=== PATIENT | male | born 1960 ===

== ENCOUNTER 2016-10-12 22:12 | Emergency (ER) | payer MEDICAID, OTHER ==
[2016-10-12 22:12] VITALS: BMI 19.3
--- NOTE | 2016-10-13 00:30 | C.PDOC ---
History Of Present Illness Pt c/o chronic right leg pain. Of note, pt is accompanied by a woman who insists on knowing the patient's medical information even though she is not related to him. Pt does not consent to give this woman his medical information and yet the woman refuses to leave and is interrupting this patients care and the care of other patients. I politely asked this woman to leave, but she started yelling in the ED and states that she wants to complain about me. Time Seen by Provider: 10/12/16 23:12 Chief Complaint (Nursing): Medical Clearance History Per: Patient Onset/Duration Of Symptoms: Days (chronic) Current Symptoms Are (Timing): Still Present Severity: Moderate Additional History Per: Prior Records Past Medical History Reviewed: Historical Data, Nursing Documentation, Vital Signs Vital Signs: Last Vital Signs Temp 97 F L 10/12/16 22:24 Pulse 84 10/12/16 22:24 Resp 14 10/12/16 22:24 BP 144/81 10/12/16 22:24 Pulse Ox 98 10/13/16 00:34 - Medical History PMH: Atrial Fibrillation, Back Problems, Fractures, HTN, Chronic Pain (chronic b /l leg pain/itching) - [facility] Procedures IMMOBILIZ/WOUND ATTN NEC (06/13/14) INJECT/INFUSE NEC (08/09/14) Family History: States: Unknown Family Hx - Social History Hx Tobacco Use: No (DENIED) Hx Alcohol Use: Yes Hx Substance Use: No - Immunization History Hx Tetanus Toxoid Vaccination: No Hx Influenza Vaccination: No Hx Pneumococcal Vaccination: No Review Of Systems Constitutional: Negative for: Fever Respiratory: Negative for: Hemoptysis Gastrointestinal: Negative for: Vomiting, Abdominal Pain Musculoskeletal: Positive for: Leg Pain (right). Negative for: Neck Pain, Back Pain Skin: Positive for: Rash Neurological: Negative for: Weakness, Numbness, Seizures, Altered Mental Status , Headache Physical Exam - Physical Exam Appears: No Acute Distress, Chronically Ill Skin: Warm, Dry, Jaundice Head: Atraumatic Eye(s): bilateral: PERRL, EOMI Neck: Normal ROM, Supple Cardiovascular: Rhythm Irregular Respiratory: Normal Breath Sounds, No Accessory Muscle Use Gastrointestinal/Abdominal: Soft, No Tenderness, Distention Back: No CVA Tenderness Extremity: Normal ROM, Pedal Edema, Calf Tenderness (right) Pulses: Left Dorsalis Pedis: Normal, Right Dorsalis Pedis: Normal Neurological/Psych: Oriented x3, Normal Motor, Normal Sensation ED Course And Treatment ECG: Interpreted By Me, Viewed By Me ECG Rhythm: Atrial Fibrillation, Nonspecific Changes ECG Interpretation: No Changes From Prior Rate From EC O2 Sat by Pulse Oximetry: 98 Pulse Ox Interpretation: Normal Disposition - Disposition Disposition Time: 01:00 Condition: FAIR - Clinical Impression Clinical Impression: Right leg pain, Alcoholic liver disease, Atrial fibrillation Physician Patient Turnover Patient Signed Over To: Bennett Cueto Handoff Comments: to f/up labs and reassess/dispo pt.
[2016-10-13 00:58] LABS: MEAN CELL VOLUME 84.2 fL (80.0-94.0); MEAN CORPUSCULAR HEMOGLOBIN 28.2 pg (27.0-31.0); MEAN CORPUSCULAR HGB CONC 33.5 g/dL (33.0-37.0); MEAN PLATELET VOLUME 8.6 fL (7.2-11.7); PLATELET COUNT 281 K/uL (130-400); RED CELL DISTRIBUTION WIDTH 26.9 % (11.5-14.5); WHITE BLOOD COUNT 9.6 K/uL (4.8-10.8)
[2016-10-13 00:59] LABS: RBC URINE 5 /hpf (0-3); URINE BILIRUBIN 1+ (NEGATIVE); URINE BLOOD 1+ (NEGATIVE); URINE COLOR Amber (YELLOW); URINE GLUCOSE (UA) NORMAL (Normal); URINE KETONE NEGATIVE (NEGATIVE); URINE LEUKOCYTE ESTERASE NEG Leu/uL (Negative); URINE PROTEIN NEGATIVE (NEGATIVE); WBC URINE 1 /hpf (0-5)
[2016-10-13 01:02] LABS: ALB/GLOB RATIO 0.5 (1.0-2.1); ALCOHOL SERUM 47 mg/dl (0-10); ALKALINE PHOSPHATASE 307 U/L (38-126); ALT/SGPT 23 U/L (21-72); AST/SGOT 73 U/L (17-59); BILIRUBIN,TOTAL 7.9 mg/dL (0.2-1.3); BLOOD UREA NITROGEN 11 mg/dL (9-20); CALCIUM 7.8 mg/dl (8.6-10.4); CARBON DIOXIDE 18 mmol/L (22-30); CHLORIDE 108 mmol/L (98-107); GFR AFRICAN-AMERICAN > 60; GLUCOSE,RANDOM 107 mg/dL (75-110); MAGNESIUM 1.6 mg/dL (1.6-2.3); POTASSIUM 4.4 mmol/L (3.6-5.2); SODIUM 135 mmol/L (132-148); TOTAL PROTEIN 7.7 g/dL (6.3-8.3)
[2016-10-13 01:56] LABS: BASOPHIL 1 % (0-2); EOSINOPHIL 3 % (0-4); NEUTROPHIL 67 % (50-75); TOTAL CELLS COUNTED 100
[2016-10-13 01:58] LABS: GIANT PLATELETS PRESENT; LARGE PLATELETS PRESENT
[2016-10-13 02:35] LABS: PARTIAL THROMBOPLASTIN TIME 37 SECONDS (21-34)
[2016-10-13] MEDS ORDERED: Enoxaparin 40 mg Syringe SC STA (03:16)
[2016-10-13] MEDS ORDERED: Enoxaparin 80 mg Syringe ONE (03:24)
[2016-10-13] MEDS ORDERED: Iodixanol 320 MG/ML 100 ML BOTTLE IV ONE (04:15)
[2016-10-13 07:46] VITALS: RESP 16; TEMP 98.2; O2SAT 100
--- NOTE | 2016-10-13 09:58 | CT ---
PROCEDURE: CT Chest with contrast (Pulmonary Angiogram) HISTORY: Shortness of breath. , leg pain, elevated d dimer COMPARISON: None available. TECHNIQUE: Axial computed tomography images were obtained of the chest in the pulmonary arterial phase of enhancement. Coronal and sagittal reformatted images were created and reviewed. Intravenous contrast dose: 100 cc Visipaque 320 contrast material. Radiation dose: Total exam DLP = 293.38 mGy-cm. This CT exam was performed using one or more of the following dose reduction techniques: Automated exposure control, adjustment of the mA and/or kV according to patient size, and/or use of iterative reconstruction technique. This study is limited by suboptimal bolus injection, motion and some streak and beam hardening artifact. FINDINGS: PULMONARY ARTERIES: No definitive evidence of filling defects seen in the visualized pulmonary trunk, right and left main and proximal segmental branches. Note that distal segmental and subsegmental branches of the pulmonary arteries are poorly seen as delineated above. Pulmonary trunk measures approximately 3.26 cm. Rule out underlying mild pulmonary arterial hypertension. No evidence AORTA: No acute findings. No evidence of aortic dissection for aneurysm. The ascending thoracic aorta measures approximate 3.05 cm and descending thoracic aorta measures approximately 2.3 cm. LUNGS: Mild bibasilar atelectasis and or scarring changes. PLEURAL SPACES: No effusion or pneuomothorax. There appears to be localized pleural thickening the left anterior upper lung along anterolateral convexity HEART: Heart size is mildly enlarged. No significant pericardial effusion. LYMPH NODES: 2 small nonspecific mediastinal and hilar lymph nodes. BONES, CHEST WALL: The osseous structures appear intact. OTHER FINDINGS: Small hiatal hernia. There ascites seen in the upper abdomen. The questionable hepatic cirrhosis. Partially exophytic hyperdense lesion (Measuring approximately 17.2 x 14.3 mm )upper pole left kidney that could represent hyperdense cyst however solid mass must be excluded. Consider followup renal ultrasound. IMPRESSION: Limited study as above. No definitive central pulmonary emboli seen within limitation of study. Rule out underlying pulmonary arterial hypertension. Mild bibasilar atelectasis and or scarring. Suspect localized pleural thickening left upper lobe along the anterolateral convexity. Ascites with questionable hepatic cirrhosis. Small hyperdense lesion upper pole left kidney may represent hyperdense cyst however solid mass not excluded. Recommend followup renal ultrasound.
[2016-10-13 10:45] VITALS: BP 122/70; PULSE 101
--- NOTE | 2016-10-13 14:50 | VASCLAB ---
PROCEDURE: Lower Extremity Venous Duplex Exam. HISTORY: dvt PRIORS: None. TECHNIQUE: Bilateral common femoral, femoral, popliteal and posterior tibial, peroneal and great saphenous veins were evaluated. Flow was assessed with color Doppler, compressibility, assessment of phasic flow and augmentation response. Report prepared by Susan Garcia, CHELY, RVS FINDINGS: RIGHT: 1. Common Femoral Vein: 1.1. Compressibility - Fully compressible: Thrombus - None : Flow - Phasic: Augmentation -Normal: Reflux - None. 2. Femoral Vein: 2.1. Compressibility - Fully compressible: Thrombus - None : Flow - Phasic: Augmentation -Normal: Reflux - None. 3. Popliteal Vein: 3.1. Compressibility - Fully compressible: Thrombus - None : Flow - Phasic: Augmentation -Normal: Reflux - None. 4. Posterior Tibial Vein: 4.1. Compressibility - Fully compressible: Thrombus - None: Flow - Phasic: Augmentation -Normal: Reflux - None. 5. Peroneal Vein: 5.1. Compressibility - Fully compressible: Thrombus - None: Flow - Phasic: Augmentation -Normal: Reflux - None. 6. Great Saphenous Vein: 6.1. Compressibility - Partial: Thrombus - Acute: Flow - Phasic: Augmentation - Normal: Reflux - None. LEFT: 1. Common Femoral Vein: 1.1. Compressibility - Fully compressible: Thrombus - None: Flow - Phasic: Augmentation -Normal: Reflux - None. 2. Femoral Vein: 2.1. Compressibility - Fully compressible: Thrombus - None: Flow - Phasic: Augmentation -Normal: Reflux - None. 3. Popliteal Vein: 3.1. Compressibility - Fully compressible: Thrombus - None : Flow - Phasic: Augmentation -Normal: Reflux - None. 4. Posterior Tibial Vein: 4.1. Compressibility - Fully compressible: Thrombus - None: Flow - Phasic: Augmentation -Normal: Reflux - None. 5. Peroneal Vein: 5.1. Compressibility - Fully compressible: Thrombus - None: Flow - Phasic: Augmentation -Normal: Reflux - None. 6. Great Saphenous Vein: 6.1. Compressibility - Fully compressible: Thrombus - None: Flow - Phasic: Augmentation - Normal: Reflux - None. OTHER FINDINGS: Right: None significant. Left: None significant. IMPRESSION: Right: No evidence of deep or superficial vein thrombosis of the right lower extremity. Normal valve function noted of the right side. There is a partial compression of the greater saphenous vein in the mid to distal thigh. Left: No evidence of deep or superficial vein thrombosis of the left lower extremity. Normal valve function noted of the left side.
--- NOTE | 2016-10-13 15:13 | RAD ---
HISTORY: Edema COMPARISON: CTA chest PE protocol performed 10/13/16 TECHNIQUE: Chest, one view. FINDINGS: Examination limited by habitus. LUNGS: Mild bibasilar atelectasis. Please note that chest x-ray has limited sensitivity for the detection of pulmonary masses. PLEURA: No significant pleural effusion identified. No definite pneumothorax . CARDIOVASCULAR: Cardiomegaly. OSSEOUS STRUCTURES: Degenerative changes of the spine. Deformity of the right mid clavicle may be related to remote fracture VISUALIZED UPPER ABDOMEN: Unremarkable. OTHER FINDINGS: None. IMPRESSION: Mild bibasilar atelectasis. Cardiomegaly. Deformity of the right mid clavicle may be related to remote fracture. Expansile lesion cannot be excluded. Recommend correlation with clinical history and prior outside images if available. Study has been marked for PA review.
== END 2016-10-13 10:44 | disposition home or self-care (01) ==
LOC: C.ER 22:12
DX: M79.604 Pain in right leg (principal); K70.9 Alcoholic liver disease, unspecified; I48.91 Unspecified atrial fibrillation
CPT/HCPCS: 71010; 71275; 80053; 81001; 83735; 83880; 84484; 85025; 85378; 85610; 85730; 93970; 96372; 99285; G0480; J1650; Q9967

== ENCOUNTER 2017-05-17 21:50 | Emergency (ER) | payer SELFPAY ==
[2017-05-17 21:52] VITALS: BMI 23.2
[2017-05-17 22:46] VITALS: BP 122/82; PULSE 113; RESP 16; TEMP 98.5; O2SAT 99
--- NOTE | 2017-05-18 01:14 | C.PDOC ---
History Of Present Illness 56 year old homeless male presents to the ER with a complaint of lower back pain , dry cough, chest congestion, and nasal congestion for the past 3 days. Denies fever, chest pain, or SOB. Time Seen by Provider: 05/17/17 23:10 Chief Complaint (Nursing): Back Pain History Per: Patient History/Exam Limitations: no limitations Onset/Duration Of Symptoms: Days Current Symptoms Are (Timing): Still Present Associated Symptoms: None Recent travel outside of the [place]: No Past Medical History Reviewed: Historical Data, Nursing Documentation, Vital Signs Vital Signs: Last Vital Signs Temp 98.5 F 05/17/17 22:35 Pulse 113 H 05/17/17 22:35 Resp 16 05/17/17 22:35 BP 122/82 05/17/17 22:35 Pulse Ox 99 05/18/17 03:17 - Medical History PMH: Anemia, Atrial Fibrillation, Back Problems, Cardia Arrhythmia, Fractures, Peripheral Edema, Pneumonia, Chronic Pain (chronic b/l leg pain/itching) - [facility] Procedures IMMOBILIZ/WOUND ATTN NEC (06/13/14) INJECT/INFUSE NEC (08/09/14) INSPECTION OF UPPER INTESTINAL TRACT, ENDO (12/24/16) INTRODUCTION OF OTHER THERAPEUTIC SUBSTANCE INTO UP GI, ENDO (12/24/16) TRANSFUSE NONAUT RED BLOOD CELLS IN PERIPH VEIN, PERC (12/24/16) Family History: States: Unknown Family Hx - Social History Hx Tobacco Use: No Hx Alcohol Use: Yes (Last drink was about 5-6 years ago.) Hx Substance Use: No - Immunization History Hx Tetanus Toxoid Vaccination: No Hx Influenza Vaccination: No Hx Pneumococcal Vaccination: No Review Of Systems Constitutional: Negative for: Fever ENT: Positive for: Nose Congestion Cardiovascular: Negative for: Chest Pain Respiratory: Positive for: Cough, Other (Chest congestion). Negative for: Shortness of Breath Musculoskeletal: Positive for: Back Pain (Lower) Neurological: Negative for: Weakness, Numbness Physical Exam - Physical Exam Appears: Non-toxic, No Acute Distress Skin: Normal Color, Warm, Dry Head: Atraumatic, Normacephalic Eye(s): bilateral: Normal Inspection Ear(s): Bilateral: Normal Oral Mucosa: Moist Throat: Normal, No Erythema, No Exudate Neck: Normal, Supple Chest: Symmetrical, No Tenderness Cardiovascular: Rhythm Regular Respiratory: Normal Breath Sounds, No Rales, No Rhonchi, No Wheezing Back: No Vertebral Tenderness, No Paraspinal Tenderness Neurological/Psych: Oriented x3, Normal Speech Gait: Steady ED Course And Treatment O2 Sat by Pulse Oximetry: 99 (Room air) Pulse Ox Interpretation: Normal - Radiology CXR: Interpreted by Me, Viewed By Me CXR Interpretation: Yes: No Acute Disease Progress Note: CXR ordered, results were negative. Patient is ambulatory in the ER in no acute distress. Will discharge home with instructions to take OTC medication as needed and to follow up with clinic for further evaluation. Disposition Counseled Patient/Family Regarding: Diagnosis, Need For Followup - Disposition Disposition: HOME/ ROUTINE Disposition Time: 01:12 Condition: STABLE Additional Instructions: PLEASE FOLLOW UP IN CLINIC TAKE TYLENOL FOR PAIN RETURN TO ER IF WORSE Prescriptions: Acetaminophen [Tylenol 325mg tab] 650 mg PO QID #40 tab guaiFENesin/Dextromethorphan [guaiFENesin-DM] 5 ml PO Q6 #100 ml Instructions: Upper Respiratory Infection (ED) Forms: [employer] (Kazakh) - Clinical Impression Clinical Impression: Upper respiratory infection - PA / INTENSIVE CARE ANAESTHETIST / Resident Statement MD/DO has reviewed & agrees with the documentation as recorded. - Scribe Statement The provider has reviewed the documentation as recorded by the Scribmelony Manzo All medical record entries made by the Thomasibmelony were at my direction and personally dictated by me. I have reviewed the chart and agree that the record accurately reflects my personal performance of the history, physical exam, medical decision making, and the department course for this patient. I have also personally directed, reviewed, and agree with the discharge instructions and disposition.
--- NOTE | 2017-05-18 08:15 | RAD ---
HISTORY: cough, congestion COMPARISON: chest x-ray and CT chest PE study. Both studies 10/13/2016 TECHNIQUE: Chest PA and lateral FINDINGS: LUNGS: No consolidation the overall pulmonary vasculature appears increased possible slight increased conspicuity on current exam. PLEURA: No significant pleural effusion identified. No pneumothorax apparent. CARDIOVASCULAR: Mild cardiomegaly OSSEOUS STRUCTURES: Thoracic spondylosis. Old healed right 8th lateral rib fracture -similar VISUALIZED UPPER ABDOMEN: Normal. OTHER FINDINGS: None. IMPRESSION: No consolidative infiltrate. Mild cardiomegaly. Mild interval perceived increased pulmonary vascular congestion. No pleural effusion
== END 2017-05-18 01:17 | disposition home or self-care (01) ==
LOC: C.ER 21:50
DX: J06.9 Acute upper respiratory infection, unspecified (principal)

== ENCOUNTER 2017-05-20 17:32 | Inpatient (IN) | payer MEDICAID, OTHER ==
[2017-05-20 17:32] VITALS: BMI 23.2
--- NOTE | 2017-05-20 18:52 | C.PDOC ---
History Of Present Illness 56 y/o M c PMHx liver cirrhosis, Afib, alcoholism, homeless p/w fever, body aches, nausea, diarrhea x 3 days. Denies recent travel, dyspnea, chest pain, rash. Time Seen by Provider: 05/20/17 18:33 Chief Complaint (Nursing): GI Problem Past Medical History Vital Signs: Last Vital Signs Temp 97.8 F 05/20/17 19:29 Pulse 106 H 05/20/17 22:26 Resp 19 05/20/17 22:26 BP 97/51 L 05/20/17 22:26 Pulse Ox 97 05/20/17 22:26 - Medical History PMH: Anemia, Atrial Fibrillation, Back Problems, Cardia Arrhythmia, Fractures, Peripheral Edema, Pneumonia, Chronic Pain (chronic b/l leg pain/itching) Denies: Arthritis, CHF, COPD, Diabetes (Pt denies), Hepatitis (Pt denies), HIV (Pt denies), HTN (Pt denies), Hypercholesterolemia, Hypothyroidism, Chronic Kidney Disease, Rheumatoid Arthritis, Sexually Transmitted Disease (Pt denies) Comment Only: Seizures (Pt denies) - [facility] Procedures IMMOBILIZ/WOUND ATTN NEC (06/13/14) INJECT/INFUSE NEC (08/09/14) INSPECTION OF UPPER INTESTINAL TRACT, ENDO (12/24/16) INTRODUCTION OF OTHER THERAPEUTIC SUBSTANCE INTO UP GI, ENDO (12/24/16) TRANSFUSE NONAUT RED BLOOD CELLS IN PERIPH VEIN, PERC (12/24/16) Family History: States: Unknown Family Hx - Social History Hx Tobacco Use: No Hx Alcohol Use: Yes (Last drink was about 5-6 years ago.) Hx Substance Use: No - Immunization History Hx Tetanus Toxoid Vaccination: No Hx Influenza Vaccination: No Hx Pneumococcal Vaccination: No Review Of Systems Except As Marked, All Systems Reviewed And Found Negative. Cardiovascular: Negative for: Chest Pain Respiratory: Negative for: Shortness of Breath Physical Exam - Physical Exam Additional Physical Exam Comments: Constitutional: No acute distress. Head: Atraumatic. Eyes: PERRL. ENT: Moist mucous membranes. Neck: Supple. Cardiovascular: Tachycardic rate. Radial pulses 2+ bilaterally. Chest: No tenderness. Respiratory: Clear to auscultation bilaterally. GI: Soft. Nontender. Distended. Back: No CVA tenderness. Musculoskeletal: Swelling of lower extremities. Neurologic: Alert, no focal deficit. ED Course And Treatment - Laboratory Results Result Diagrams: 05/20/17 19:08 05/20/17 19:08 O2 Sat by Pulse Oximetry: 98 Medical Decision Making Medical Decision Making: Patient with mild lactic acidosis, leukocytosis, stable Hb, positive UTI, hyponatremia. Vital signs improved. ICU consult placed, Dr. Rojas recommends telemetry admission at this time, recommends treating with Tamiflu despite negative Influenza swab given not 100% sensitive. Dr. Davison accepts patient to hospitalist service. manager residential notified. Disposition - Disposition Disposition: HOSPITALIZED Disposition Time: 22:45 Condition: GUARDED Forms: [facility] (Lebanese) - Clinical Impression Clinical Impression: Sepsis, UTI (urinary tract infection), Hyponatremia
[2017-05-20 19:22] LABS: VENOUS BLOOD GAS BASE EXCESS 0.3 mmol/L (0.0-2.0); VENOUS BLOOD GAS PCO2 32 mmHg (40-60); VENOUS BLOOD GAS PO2 46 mm/Hg (30-55); VENOUS BLOOD PH 7.47 (7.32-7.43)
[2017-05-20 19:23] LABS: RBC 2.68 Mil/uL (4.40-5.90)
[2017-05-20 19:24] LABS: MEAN CORPUSCULAR HEMOGLOBIN 29.7 pg (27.0-31.0); MEAN CORPUSCULAR HGB CONC 33.4 g/dL (33.0-37.0); RED CELL DISTRIBUTION WIDTH 21.8 % (11.5-14.5)
[2017-05-20 19:25] LABS: INR 2.1; PROTHROMBIN TIME 24.1 SECONDS (9.7-12.2)
[2017-05-20 19:26] LABS: MEAN CELL VOLUME 88.8 fL (80.0-94.0); WHITE BLOOD COUNT 16.2 K/uL (4.8-10.8)
[2017-05-20 19:28] LABS: ALBUMIN 2.7 g/dL (3.5-5.0); ALT/SGPT 31 U/L (21-72); AST/SGOT 82 U/L (17-59); BLOOD UREA NITROGEN 13 mg/dL (9-20); CALCIUM 7.5 mg/dl (8.6-10.4); GFR AFRICAN-AMERICAN > 60; GFR NON-AFRICAN AMERICAN > 60; LIPASE 71 U/L (23-300)
[2017-05-20 19:34] LABS: ALB/GLOB RATIO 0.5 (1.0-2.1)
[2017-05-20] MEDS ORDERED: Cefepime IV 1 gm in Dextrose 1 GM/50 ML BAG IVPB STA (19:45)
[2017-05-20] MEDS ORDERED: Vancomycin 1 gm/NS 200 ml 1 GM/200 ML BAG IVPB STA (19:45)
[2017-05-20] MEDS ORDERED: Sodium Chloride 0.9% 1,000 ML IV STA (19:46)
[2017-05-20 19:56] LABS: LYMPH # 1.6 K/uL (1.0-4.3); MONO # 0.7 K/uL (0.0-0.8)
[2017-05-20 22:21] LABS: SQUAMOUS EPITHIAL 1 /hpf (0-5); URINE BACTERIA OCC (<OCC); URINE BILIRUBIN 1+ (NEGATIVE); URINE BLOOD 1+ (NEGATIVE); URINE CLARITY Clear (Clear); URINE COLOR Amber (YELLOW); URINE GLUCOSE (UA) NORMAL (Normal); URINE LEUKOCYTE ESTERASE 1+ Leu/uL (Negative); URINE NITRATE NEGATIVE (NEGATIVE); URINE PROTEIN 1+ mg/dL (NEGATIVE)
--- NOTE | 2017-05-20 23:58 | CP.PCM.HP ---
Addendum entered and electronically signed by Flor Phillip DO 05/21/17 09:03 : Physical Exam: - Constitutional Appears: No Acute Distress - Head Exam Head Exam: ATRAUMATIC, NORMOCEPHALIC - Eye Exam Eye Exam: EOMI - ENT Exam ENT Exam: Mucous Membranes Dry - Respiratory Exam Respiratory Exam: Clear to Ausculation Bilateral, NORMAL BREATHING PATTERN. absent: Rales, Rhonchi, Wheezes - Cardiovascular Exam Cardiovascular Exam: Tachycardia, Irregular Rhythm, +S1, +S2 - GI/Abdominal Exam GI & Abdominal Exam: Distended, Soft, Hernia (umbilical), Normal Bowel Sounds. 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 HPI: 56 yo Male with PMHx of Afib, hepatic cirrhosis, varices, anemia, alcoholism stopped 10 yrs as per patient, chronic leg edema, venous insufficiency and dermatitis changes in right leg presented to the ED with fever , body ache, runny nose, and productive cough x 3 days. Patient is homeless, reports that he was feeling ill for the past 3-4 days. Admitted to fever, chills , productive cough with yellow sputum, chest discomfort upon coughing, diarrhea and right leg pain. Denied abdominal pain, n/v/c, or urinary symptoms. PMHx: Afib, hepatic cirrhosis, varices, anemia,alcoholism stopped 10 yrs as per patient, chronic leg edema, venous insufficiency & dermatitis changes in right leg PSHx: Incarcerated hernia repair Meds: As per JUL, reviewed and confirmed All: NKDA SHx: denies tobacco or illicit drug use, endorses prior 1 pint vodka daily for four years, quit 10 years - positive ETOH levels FHx: denies stomach cancer, colon cancer, liver cancer Present on Admission - Present on Admission Any Indicators Present on Admission: No Past Patient History - Infectious Disease Hx of Infectious Diseases: None - Past Medical History & Family History Past Medical History?: Yes - Past Social History Smoking Status: Never Smoked - CARDIAC Hx Atrial Fibrillation: Yes Hx Cardia Arrhythmia: Yes Hx Congestive Heart Failure: No Hx Hypercholesterolemia: No Hx Hypertension: No (Pt denies) Hx Peripheral Edema: Yes - PULMONARY Hx Chronic Obstructive Pulmonary Disease (COPD): No Hx Pneumonia: Yes - NEUROLOGICAL Hx Seizures: (Pt denies) - HEENT Hx HEENT Problems: No - RENAL Hx Chronic Kidney Disease: No - ENDOCRINE/METABOLIC Hx Hypothyroidism: No - HEMATOLOGICAL/ONCOLOGICAL Hx Anemia: Yes Hx Human Immunodeficiency Virus (HIV): No (Pt denies) - INTEGUMENTARY Hx Cellulitis: Yes - MUSCULOSKELETAL/RHEUMATOLOGICAL Hx Arthritis: No Hx Fractures: Yes Hx Rheumatoid Arthritis: No - GASTROINTESTINAL Hx Gastrointestinal Disorders: Yes Other/Comment: umbilical hernia, Liver cirrhosis - GENITOURINARY/GYNECOLOGICAL Hx Sexually Transmitted Disorders: No (Pt denies) - PSYCHIATRIC Hx Substance Use: No - SURGICAL HISTORY Hx Surgeries: Yes Other/Comment: Surgery Rt arm - "artery" - ANESTHESIA Hx Anesthesia: Yes Hx Anesthesia Reactions: No Hx Malignant Hyperthermia: No Meds Allergies/Adverse Reactions: Allergies Allergy/AdvReac Type Severity Reaction Status Date / Time pollen extracts Allergy ITCHING Verified 05/20/17 18:05 Results - Vital Signs Recent Vital Signs: Last Vital Signs Temp 97.8 F 05/20/17 19:29 Pulse 106 H 05/20/17 22:26 Resp 19 05/20/17 22:26 BP 97/51 L 05/20/17 22:26 Pulse Ox 98 05/20/17 23:34 - Labs Result Diagrams: 05/20/17 19:08 05/20/17 19:08 Labs: Laboratory Results - last 24 hr 05/20/17 05/20/17 05/20/17 19:08 19:08 19:08 WBC 16.2 H D RBC 2.68 L Hgb 8.0 L Hct 23.8 L MCV 88.8 D MCH 29.7 MCHC 33.4 RDW 21.8 H Plt Count 193 MPV 8.0 Neut % (Auto) 86.0 H Lymph % (Auto) 10.0 L [place] % (Auto) 4.0 Eos % (Auto) 0.0 Baso % (Auto) 0.0 Neut # 14.0 H Lymph # 1.6 [place] # 0.7 Eos # 0.0 Baso # 0.0 PT 24.1 H INR 2.1 APTT 39 H pO2 VBG pH VBG pCO2 VBG HCO3 VBG Total CO2 VBG O2 Sat (Calc) VBG Base Excess VBG Potassium Glucose Lactate Sodium 127 L Potassium 3.8 Chloride 99 Carbon Dioxide 23 Anion Gap 9 L BUN 13 Creatinine 0.9 Est GFR ( Amer) > 60 Est GFR (Non-Af Amer) > 60 Random Glucose 108 Calcium 7.5 L Total Bilirubin 3.9 H AST 82 H ALT 31 Alkaline Phosphatase 211 H Total Protein 7.9 Albumin 2.7 L Globulin 5.3 H Albumin/Globulin Ratio 0.5 L Lipase 71 Venous Blood Potassium Urine Color Urine Clarity Urine pH Ur Specific [place] Urine Protein Urine Glucose (UA) Urine Ketones Urine Blood Urine Nitrate Urine Bilirubin Urine Urobilinogen Ur Leukocyte Esterase Urine WBC (Auto) Urine RBC (Auto) Ur Squamous Epith Cells Urine Bacteria Alcohol, Quantitative < 10 Influenza Typ A,B (EIA) 05/20/17 05/20/17 05/20/17 19:19 22:09 22:16 WBC RBC Hgb Hct MCV MCH MCHC RDW Plt Count MPV Neut % (Auto) Lymph % (Auto) [place] % (Auto) Eos % (Auto) Baso % (Auto) Neut # Lymph # [place] # Eos # Baso # PT INR APTT pO2 46 VBG pH 7.47 H VBG pCO2 32 L VBG HCO3 24.8 VBG Total CO2 24.3 VBG O2 Sat (Calc) 88.5 H VBG Base Excess 0.3 VBG Potassium 3.6 Glucose 107 Lactate 2.5 H Sodium 133.0 Potassium Chloride 106.0 Carbon Dioxide Anion Gap BUN Creatinine Est GFR ( Amer) Est GFR (Non-Af Amer) Random Glucose Calcium Total Bilirubin AST ALT Alkaline Phosphatase Total Protein Albumin Globulin Albumin/Globulin Ratio Lipase Venous Blood Potassium 3.6 Urine Color [place] Urine Clarity Clear Urine pH 5.0 Ur Specific [place] 1.028 Urine Protein 1+ H Urine Glucose (UA) Normal Urine Ketones Trace Urine Blood 1+ H Urine Nitrate Negative Urine Bilirubin 1+ H Urine Urobilinogen 4.0 Ur Leukocyte Esterase 1+ H Urine WBC (Auto) 9 H Urine RBC (Auto) 7 H Ur Squamous Epith Cells 1 Urine Bacteria Occ H Alcohol, Quantitative Influenza Typ A,B (EIA) Negative for flu a/b Assessment & Plan - Assessment and Plan (Free Text) Assessment: 56 yo Male with PMHx of Afib, hepatic cirrhosis, varices, anemia, alcoholism stopped 10 yrs as per patient, chronic leg edema, venous insufficiency and dermatitis changes in right leg presented to the ED with fever , body ache, runny nose, and productive cough x 3 days. Patient found to be septic secondary to UTI and Questionable right lower extremity cellulitis. Plan: Sepsis 2/2 UTI Questionable RLE Cellulitis On admission: Febrile, tachycardiac, leukocytosis with left shift, lactate 2.5 -> 1.3 Source 2/2 UTI and questionable RLE Cellulitis Meds: NS @ 100cc/hr Zosyn Q8, Vanco daily, f/u vanco trough 05/23/17 (before 4th dose) RLE Cellulitis? Right LE weeping puncture wound F/U wound culture Wells Score of 3 F/U venous doppler to rule out DVT Chronic Venous Stasis Hyponatremia 127 on admission, low compared to baseline F/U urine Osm, Urine Na, and serum Osm Diarrhea F/U stool studies Anemia Baseline H/H: 01/25, on admission: 12/23.8 Continue to monitor Hx of Atrial Fibrillation EKG: Afib with RVR @ 125 BPM Not on any anticoagulation Alcohol Decompensated Cirrhosis MELD 20 on admission Hepatitis panel negative 11/10/16 AFP 2.3 11/10/16 F/U Ammonia Elevated T. Bili Continue to monitor Hx Alcohol Abuse Alcohol Serum <10 Prophylactic Measure GI PPX: Protonix 40mg IVP DVT PPX: SCD c/i, Heparin Q12 Florastor 250mg PO BID Flor Muñoz DO, PGY-1 <Jabier Davison - Last Filed: 05/21/17 19:04> Results - Vital Signs Recent Vital Signs: Last Vital Signs Temp 99.9 F H 05/21/17 16:00 Pulse 98 H 05/21/17 16:00 Resp 20 05/21/17 16:00 BP 114/62 05/21/17 16:00 Pulse Ox 96 05/21/17 16:00 - Labs Result Diagrams: 05/21/17 10:15 05/21/17 08:48 Labs: Laboratory Results - last 24 hr 0105/20/17 05/20/17 19:08 19:08 19:08 WBC 16.2 H D RBC 2.68 L Hgb 8.0 L Hct 23.8 L MCV 88.8 D MCH 29.7 MCHC 33.4 RDW 21.8 H Plt Count 193 MPV 8.0 Neut % (Auto) 86.0 H Lymph % (Auto) 10.0 L [place] % (Auto) 4.0 Eos % (Auto) 0.0 Baso % (Auto) 0.0 Neut # 14.0 H Lymph # 1.6 [place] # 0.7 Eos # 0.0 Baso # 0.0 Neutrophils % (Manual) Band Neutrophils % Lymphocytes % (Manual) Monocytes % (Manual) Basophils % (Manual) Platelet Estimate Poikilocytosis (manual Anisocytosis (manual) Target Cells PT 24.1 H INR 2.1 APTT 39 H pO2 VBG pH VBG pCO2 VBG HCO3 VBG Total CO2 VBG O2 Sat (Calc) VBG Base Excess VBG Potassium Glucose Lactate Sodium 127 L Potassium 3.8 Chloride 99 Carbon Dioxide 23 Anion Gap 9 L BUN 13 Creatinine 0.9 Est GFR ( Amer) > 60 Est GFR (Non-Af Amer) > 60 Random Glucose 108 Hemoglobin A1c Serum Osmolality Lactic Acid Calcium 7.5 L Phosphorus Magnesium Total Bilirubin 3.9 H AST 82 H ALT 31 Alkaline Phosphatase 211 H Ammonia Total Protein 7.9 Albumin 2.7 L Globulin 5.3 H Albumin/Globulin Ratio 0.5 L Lipase 71 Procalcitonin Venous Blood Potassium Urine Color Urine Clarity Urine pH Ur Specific [place] Urine Protein Urine Glucose (UA) Urine Ketones Urine Blood Urine Nitrate Urine Bilirubin Urine Urobilinogen Ur Leukocyte Esterase Urine WBC (Auto) Urine RBC (Auto) Ur Squamous Epith Cells Urine Bacteria Urine Osmolality Ur Random Sodium Urine Opiates Screen Urine Methadone Screen Ur Barbiturates Screen Ur Phencyclidine Scrn Ur Amphetamines Screen U Benzodiazepines Scrn U Oth Cocaine Metabols U Cannabinoids Screen Alcohol, Quantitative < 10 Influenza Typ A,B (EIA) Ur L.pneumophila Ag Grp A Beta Strep Ag Blood Type Antibody Screen 05/20/17 05/20/17 05/20/17 19:19 22:09 22:16 WBC RBC Hgb Hct MCV MCH MCHC RDW Plt Count MPV Neut % (Auto) Lymph % (Auto) [place] % (Auto) Eos % (Auto) Baso % (Auto) Neut # Lymph # [place] # Eos # Baso # Neutrophils % (Manual) Band Neutrophils % Lymphocytes % (Manual) Monocytes % (Manual) Basophils % (Manual) Platelet Estimate Poikilocytosis (manual Anisocytosis (manual) Target Cells PT INR APTT pO2 46 VBG pH 7.47 H VBG pCO2 32 L VBG HCO3 24.8 VBG Total CO2 24.3 VBG O2 Sat (Calc) 88.5 H VBG Base Excess 0.3 VBG Potassium 3.6 Glucose 107 Lactate 2.5 H Sodium 133.0 Potassium Chloride 106.0 Carbon Dioxide Anion Gap BUN Creatinine Est GFR ( Amer) Est GFR (Non-Af Amer) Random Glucose Hemoglobin A1c Serum Osmolality Lactic Acid Calcium Phosphorus Magnesium Total Bilirubin AST ALT Alkaline Phosphatase Ammonia Total Protein Albumin Globulin Albumin/Globulin Ratio Lipase Procalcitonin Venous Blood Potassium 3.6 Urine Color [place] Urine Clarity Clear Urine pH 5.0 Ur Specific [place] 1.028 Urine Protein 1+ H Urine Glucose (UA) Normal Urine Ketones Trace Urine Blood 1+ H Urine Nitrate Negative Urine Bilirubin 1+ H Urine Urobilinogen 4.0 Ur Leukocyte Esterase 1+ H Urine WBC (Auto) 9 H Urine RBC (Auto) 7 H Ur Squamous Epith Cells 1 Urine Bacteria Occ H Urine Osmolality Ur Random Sodium Urine Opiates Screen Urine Methadone Screen Ur Barbiturates Screen Ur Phencyclidine Scrn Ur Amphetamines Screen U Benzodiazepines Scrn U Oth Cocaine Metabols U Cannabinoids Screen Alcohol, Quantitative Influenza Typ A,B (EIA) Negative for flu a/b Ur L.pneumophila Ag Grp A Beta Strep Ag Blood Type Antibody Screen 05/21/17 05/21/17 05/21/17 00:43 01:10 08:48 WBC RBC Hgb Hct MCV MCH MCHC RDW Plt Count MPV Neut % (Auto) Lymph % (Auto) [place] % (Auto) Eos % (Auto) Baso % (Auto) Neut # Lymph # [place] # Eos # Baso # Neutrophils % (Manual) Band Neutrophils % Lymphocytes % (Manual) Monocytes % (Manual) Basophils % (Manual) Platelet Estimate Poikilocytosis (manual Anisocytosis (manual) Target Cells PT INR APTT pO2 VBG pH VBG pCO2 VBG HCO3 VBG Total CO2 VBG O2 Sat (Calc) VBG Base Excess VBG Potassium Glucose Lactate Sodium 128 L Potassium 4.0 Chloride 104 Carbon Dioxide 21 L Anion Gap 7 L BUN 14 Creatinine 0.9 Est GFR ( Amer) > 60 Est GFR (Non-Af Amer) > 60 Random Glucose 92 Hemoglobin A1c Serum Osmolality Lactic Acid 1.3 Calcium 7.1 L Phosphorus 2.5 Magnesium 1.3 L Total Bilirubin 2.6 H AST 85 H ALT 33 Alkaline Phosphatase 172 H Ammonia Total Protein 6.9 Albumin 2.3 L Globulin 4.6 H Albumin/Globulin Ratio 0.5 L Lipase Procalcitonin Venous Blood Potassium Urine Color Urine Clarity Urine pH Ur Specific [place] Urine Protein Urine Glucose (UA) Urine Ketones Urine Blood Urine Nitrate Urine Bilirubin Urine Urobilinogen Ur Leukocyte Esterase Urine WBC (Auto) Urine RBC (Auto) Ur Squamous Epith Cells Urine Bacteria Urine Osmolality Ur Random Sodium Urine Opiates Screen Urine Methadone Screen Ur Barbiturates Screen Ur Phencyclidine Scrn Ur Amphetamines Screen U Benzodiazepines Scrn U Oth Cocaine Metabols U Cannabinoids Screen Alcohol, Quantitative Influenza Typ A,B (EIA) Ur L.pneumophila Ag Grp A Beta Strep Ag Blood Type O POSITIVE Antibody Screen Negative 05/21/17 05/21/17 05/21/17 10:15 11:09 11:09 WBC 13.1 H RBC 2.62 L Hgb 8.0 L Hct 23.3 L MCV 89.0 MCH 30.5 MCHC 34.2 RDW 21.2 H Plt Count 167 MPV 9.2 Neut % (Auto) 83.0 H Lymph % (Auto) 6.0 L [place] % (Auto) 10.0 Eos % (Auto) 1.0 Baso % (Auto) 0.0 Neut # 10.9 H Lymph # 0.8 L [place] # 1.3 H Eos # 0.1 Baso # 0.0 Neutrophils % (Manual) 79 H Band Neutrophils % 2 Lymphocytes % (Manual) 8 L Monocytes % (Manual) 9 Basophils % (Manual) 2 Platelet Estimate Normal Poikilocytosis (manual Slight Anisocytosis (manual) Moderate Target Cells Moderate PT INR APTT pO2 VBG pH VBG pCO2 VBG HCO3 VBG Total CO2 VBG O2 Sat (Calc) VBG Base Excess VBG Potassium Glucose Lactate Sodium Potassium Chloride Carbon Dioxide Anion Gap BUN Creatinine Est GFR ( Amer) Est GFR (Non-Af Amer) Random Glucose Hemoglobin A1c Serum Osmolality 281 Lactic Acid Calcium Phosphorus Magnesium Total Bilirubin AST ALT Alkaline Phosphatase Ammonia 34 H Total Protein Albumin Globulin Albumin/Globulin Ratio Lipase Procalcitonin Venous Blood Potassium Urine Color Urine Clarity Urine pH Ur Specific [place] Urine Protein Urine Glucose (UA) Urine Ketones Urine Blood Urine Nitrate Urine Bilirubin Urine Urobilinogen Ur Leukocyte Esterase Urine WBC (Auto) Urine RBC (Auto) Ur Squamous Epith Cells Urine Bacteria Urine Osmolality Ur Random Sodium Urine Opiates Screen Urine Methadone Screen Ur Barbiturates Screen Ur Phencyclidine Scrn Ur Amphetamines Screen U Benzodiazepines Scrn U Oth Cocaine Metabols U Cannabinoids Screen Alcohol, Quantitative Influenza Typ A,B (EIA) Ur L.pneumophila Ag Grp A Beta Strep Ag Blood Type Antibody Screen 05/21/17 05/21/17 05/21/17 12:31 13:17 13:17 WBC RBC Hgb Hct MCV MCH MCHC RDW Plt Count MPV Neut % (Auto) Lymph % (Auto) [place] % (Auto) Eos % (Auto) Baso % (Auto) Neut # Lymph # [place] # Eos # Baso # Neutrophils % (Manual) Band Neutrophils % Lymphocytes % (Manual) Monocytes % (Manual) Basophils % (Manual) Platelet Estimate Poikilocytosis (manual Anisocytosis (manual) Target Cells PT INR APTT pO2 VBG pH VBG pCO2 VBG HCO3 VBG Total CO2 VBG O2 Sat (Calc) VBG Base Excess VBG Potassium Glucose Lactate Sodium Potassium Chloride Carbon Dioxide Anion Gap BUN Creatinine Est GFR ( Amer) Est GFR (Non-Af Amer) Random Glucose Hemoglobin A1c Serum Osmolality Lactic Acid Calcium Phosphorus Magnesium Total Bilirubin AST ALT Alkaline Phosphatase Ammonia Total Protein Albumin Globulin Albumin/Globulin Ratio Lipase Procalcitonin 3.93 H Venous Blood Potassium Urine Color Urine Clarity Urine pH Ur Specific [place] Urine Protein Urine Glucose (UA) Urine Ketones Urine Blood Urine Nitrate Urine Bilirubin Urine Urobilinogen Ur Leukocyte Esterase Urine WBC (Auto) Urine RBC (Auto) Ur Squamous Epith Cells Urine Bacteria Urine Osmolality 722 Ur Random Sodium 7 Urine Opiates Screen Urine Methadone Screen Ur Barbiturates Screen Ur Phencyclidine Scrn Ur Amphetamines Screen U Benzodiazepines Scrn U Oth Cocaine Metabols U Cannabinoids Screen Alcohol, Quantitative Influenza Typ A,B (EIA) Ur L.pneumophila Ag Negative Grp A Beta Strep Ag Negative Blood Type Antibody Screen 05/21/17 05/21/17 17:27 17:41 WBC RBC Hgb Hct MCV MCH MCHC RDW Plt Count MPV Neut % (Auto) Lymph % (Auto) [place] % (Auto) Eos % (Auto) Baso % (Auto) Neut # Lymph # [place] # Eos # Baso # Neutrophils % (Manual) Band Neutrophils % Lymphocytes % (Manual) Monocytes % (Manual) Basophils % (Manual) Platelet Estimate Poikilocytosis (manual Anisocytosis (manual) Target Cells PT INR APTT pO2 VBG pH VBG pCO2 VBG HCO3 VBG Total CO2 VBG O2 Sat (Calc) VBG Base Excess VBG Potassium Glucose Lactate Sodium Potassium Chloride Carbon Dioxide Anion Gap BUN Creatinine Est GFR ( Amer) Est GFR (Non-Af Amer) Random Glucose Hemoglobin A1c 6.0 Serum Osmolality Lactic Acid Calcium Phosphorus Magnesium Total Bilirubin AST ALT Alkaline Phosphatase Ammonia Total Protein Albumin Globulin Albumin/Globulin Ratio Lipase Procalcitonin Venous Blood Potassium Urine Color Urine Clarity Urine pH Ur Specific [place] Urine Protein Urine Glucose (UA) Urine Ketones Urine Blood Urine Nitrate Urine Bilirubin Urine Urobilinogen Ur Leukocyte Esterase Urine WBC (Auto) Urine RBC (Auto) Ur Squamous Epith Cells Urine Bacteria Urine Osmolality Ur Random Sodium Urine Opiates Screen Negative Urine Methadone Screen Negative Ur Barbiturates Screen Negative Ur Phencyclidine Scrn Negative Ur Amphetamines Screen Negative U Benzodiazepines Scrn Negative U Oth Cocaine Metabols Negative U Cannabinoids Screen Negative Alcohol, Quantitative Influenza Typ A,B (EIA) Ur L.pneumophila Ag Grp A Beta Strep Ag Blood Type Antibody Screen Assessment & Plan - Date & Time Date: 05/21/17 (I have seen and examined the patient. I agree with the findings and plan of care as documented by Dr. Phillip. Patient with cellulitis. Vanco and Zosyn for now. Check blood and wound cultures. Continue to monitor BMP for hyponatremia. Adjust fluids as necessary. Also with history of atrial fib. Only on aspirin. History of anemia. Confirm patient is not bleeding and anticoagulate if no contraindications. Rate control for now. Monitor for acute changes.) Time: 19:01 Attending/Attestation - Attestation I have personally seen and examined this patient.: Yes I have fully participated in the care of the patient.: Yes I have reviewed all pertinent clinical information: Yes
--- NOTE | 2017-05-20 23:59 | PCM.SEPTIC ---
Sepsis Progress Note - Reassessment Type Date of Evaluation: 05/20/17 Time of Evaluation: 23:59 Reassessment Type: Non-invasive reassessment - Non Invasive Reassessment Were the most recent vital sign reviewed: Yes Vital Sign (Latest): Temp Pulse Resp BP Pulse Ox 97.8 F 106 H 19 97/51 L 98 05/20/17 19:29 05/20/17 22:26 05/20/17 22:26 05/20/17 22:26 05/20/17 23:34 Cardiovascular: Yes: Tachycardia Respiratory: Yes: Normal Breath Sounds. No: Accessory Muscle Use, Wheezing Capillary Refill: Normal (Less than 2 sec) Pulses: Normal Radial, Normal Dorsalis Pedis, Normal Posterior Tibialis Skin: Warm, Dry - Invasive Reassessment (complete 2 of 4) Was a Central Venous Pressure Measurement obtained within 6 Hours after the presentation of septic shock: No Was a central venous oxygen measurement obtained within 6 hours after the presentation of septic shock: No Was a bedside cardiovascular ultrasound performed within 6 hours after the presentation of septic shock: No Was a passive leg raise performed or was a fluid challenge performed within 6 hrs of the initial fluid bolus: Yes Fluid Challenge performed: Yes
[2017-05-21] MEDS ORDERED: Sodium Chloride 0.9% 1,000 ML IV SCH ×2 (00:15)
--- NOTE | 2017-05-21 01:19 | CP.PCM.CON ---
History of Present Illness - History of Present Illness History of Present Illness: 56 M with h/o afib, hepatic cirrhosis, h/o varices, anemia, h/o alcoholism stopped 10 yrs as per patient, chronic leg edema, venous insufficiency and dermatitis changes in left leg, umbilical hernia, non compliance with meds, presented with c/o fever x3 days, body aches, runny nose. ER w/u unremarkable for source, influenza negative, sodium 127. ICU eval requested for fever with multiple comorbidities. Patient is non toxic alert and oriented. Denies any pain. Mentions leg changes including left leg are chronic. Denies taking any meds other then nyquil once. PMH as above Meds none Allergies NKDA Social history live alone, denies smoking, quit drinking 10 yrs back, Allergies NKDA Family history not contributory. Review of Systems - Review of Systems All systems: reviewed and no additional remarkable complaints except (HPI) Past Patient History - Infectious Disease Hx of Infectious Diseases: None - Past Medical History & Family History Past Medical History?: Yes - Past Social History Smoking Status: Never Smoked Alcohol: None Home Situation {Lives}: Alone Domestic Violence: Negative - CARDIAC Hx Atrial Fibrillation: Yes Hx Cardia Arrhythmia: Yes Hx Congestive Heart Failure: No Hx Hypercholesterolemia: No Hx Hypertension: No (Pt denies) Hx Peripheral Edema: Yes - PULMONARY Hx Chronic Obstructive Pulmonary Disease (COPD): No Hx Pneumonia: Yes - NEUROLOGICAL Hx Seizures: (Pt denies) - HEENT Hx HEENT Problems: No - RENAL Hx Chronic Kidney Disease: No - ENDOCRINE/METABOLIC Hx Hypothyroidism: No - HEMATOLOGICAL/ONCOLOGICAL Hx Anemia: Yes Hx Human Immunodeficiency Virus (HIV): No (Pt denies) - INTEGUMENTARY Hx Cellulitis: Yes - MUSCULOSKELETAL/RHEUMATOLOGICAL Hx Arthritis: No Hx Fractures: Yes Hx Rheumatoid Arthritis: No - GASTROINTESTINAL Hx Gastrointestinal Disorders: Yes Other/Comment: umbilical hernia, Liver cirrhosis - GENITOURINARY/GYNECOLOGICAL Hx Sexually Transmitted Disorders: No (Pt denies) - PSYCHIATRIC Hx Substance Use: No - SURGICAL HISTORY Hx Surgeries: Yes Other/Comment: Surgery Rt arm - "artery" - ANESTHESIA Hx Anesthesia: Yes Hx Anesthesia Reactions: No Hx Malignant Hyperthermia: No Meds Allergies/Adverse Reactions: Allergies Allergy/AdvReac Type Severity Reaction Status Date / Time pollen extracts Allergy ITCHING Verified 05/20/17 18:05 - Medications Medications: Current Medications Aspirin (Ecotrin) 81 mg PO DAILY [facility] Enoxaparin Sodium (Lovenox) 40 mg SC DAILY [facility] Vancomycin/Sodium Chloride (Vancomycin 1 Gm/Ns 200 Ml) 1 gm in 200 mls @ 133.333 mls/hr IVPB Q24H [facility] Stop: 05/27/17 21:01 Sodium Chloride (Sodium Chloride 0.9%) 1,000 mls @ 150 mls/hr IV .Q6H40M [facility] Last Admin: 05/21/17 00:34 Dose: 150 mls/hr Lorazepam (Ativan) 1 mg IVP Q6H PRN PRN Reason: Symptoms of alcohol withdrawl Ondansetron HCl (Zofran Inj) 4 mg IVP Q6 PRN PRN Reason: Nausea/Vomiting Physical Exam - Additional Findings Additional findings: * HEENT BUNNY * Neck supple * Chest Clear * CVS irregular, no gallop, or rub * PA distended, reducible umbilical hernia, horse shoe dullness * Ext 3+ edema b/l left leg discoloration, purplish, small ulcer with clean base in left leg * [employer] awake, was sleeping easily arousable, not in distress. * Skin turgor normal. Results - Vital Signs Recent Vital Signs: Last Vital Signs Temp 99.3 F 05/21/17 00:45 Pulse 104 H 05/21/17 00:20 Resp 16 05/21/17 00:20 BP 97/55 L 05/21/17 00:20 Pulse Ox 98 05/21/17 00:20 - Labs Result Diagrams: 05/20/17 19:08 05/20/17 19:08 Labs: Laboratory Results - last 24 hr 05/20/17 05/20/17 05/20/17 19:08 19:08 19:08 WBC 16.2 H D RBC 2.68 L Hgb 8.0 L Hct 23.8 L MCV 88.8 D MCH 29.7 MCHC 33.4 RDW 21.8 H Plt Count 193 MPV 8.0 Neut % (Auto) 86.0 H Lymph % (Auto) 10.0 L Love % (Auto) 4.0 Eos % (Auto) 0.0 Baso % (Auto) 0.0 Neut # 14.0 H Lymph # 1.6 Love # 0.7 Eos # 0.0 Baso # 0.0 PT 24.1 H INR 2.1 APTT 39 H pO2 VBG pH VBG pCO2 VBG HCO3 VBG Total CO2 VBG O2 Sat (Calc) VBG Base Excess VBG Potassium Glucose Lactate Sodium 127 L Potassium 3.8 Chloride 99 Carbon Dioxide 23 Anion Gap 9 L BUN 13 Creatinine 0.9 Est GFR ( Amer) > 60 Est GFR (Non-Af Amer) > 60 Random Glucose 108 Calcium 7.5 L Total Bilirubin 3.9 H AST 82 H ALT 31 Alkaline Phosphatase 211 H Total Protein 7.9 Albumin 2.7 L Globulin 5.3 H Albumin/Globulin Ratio 0.5 L Lipase 71 Venous Blood Potassium Urine Color Urine Clarity Urine pH Ur Specific [place] Urine Protein Urine Glucose (UA) Urine Ketones Urine Blood Urine Nitrate Urine Bilirubin Urine Urobilinogen Ur Leukocyte Esterase Urine WBC (Auto) Urine RBC (Auto) Ur Squamous Epith Cells Urine Bacteria Alcohol, Quantitative < 10 Influenza Typ A,B (EIA) 05/20/17 05/20/17 05/20/17 19:19 22:09 22:16 WBC RBC Hgb Hct MCV MCH MCHC RDW Plt Count MPV Neut % (Auto) Lymph % (Auto) Love % (Auto) Eos % (Auto) Baso % (Auto) Neut # Lymph # Love # Eos # Baso # PT INR APTT pO2 46 VBG pH 7.47 H VBG pCO2 32 L VBG HCO3 24.8 VBG Total CO2 24.3 VBG O2 Sat (Calc) 88.5 H VBG Base Excess 0.3 VBG Potassium 3.6 Glucose 107 Lactate 2.5 H Sodium 133.0 Potassium Chloride 106.0 Carbon Dioxide Anion Gap BUN Creatinine Est GFR ( Amer) Est GFR (Non-Af Amer) Random Glucose Calcium Total Bilirubin AST ALT Alkaline Phosphatase Total Protein Albumin Globulin Albumin/Globulin Ratio Lipase Venous Blood Potassium 3.6 Urine Color Sarai Urine Clarity Clear Urine pH 5.0 Ur Specific [place] 1.028 Urine Protein 1+ H Urine Glucose (UA) Normal Urine Ketones Trace Urine Blood 1+ H Urine Nitrate Negative Urine Bilirubin 1+ H Urine Urobilinogen 4.0 Ur Leukocyte Esterase 1+ H Urine WBC (Auto) 9 H Urine RBC (Auto) 7 H Ur Squamous Epith Cells 1 Urine Bacteria Occ H Alcohol, Quantitative Influenza Typ A,B (EIA) Negative for flu a/b Assessment & Plan - Assessment and Plan (Free Text) Assessment: * Febrile illness, DD of sero negative influenza, ? cellulitis of leg, bacterimia, clinically not sbe * Hyponatremia with edema, hypervolemia likely from cirrhosis portal htn * Afib rate controlled * Borderline lactic acidosis from poor hepatic meatoblism * Plan: * Gentle ivf * Recommend albumin 25g, midodrine 5mg tid as patient is edematous and more fluid may worsen * Recommend broad spectrum abx untils cultures negative * Recommend tamiflu despite neg influenza * Currently hold on lasix. * Since patient is not toxic tolerating current treatment, could be observed in tele.
[2017-05-21] MEDS: Sodium Chloride 0.9% 1,000 ML IV SCH ×2 (05:00→22:58)
[2017-05-21] MEDS: Piperacill/Tazo 3.375gm in Dex 3.375 GM/50 ML BAG IVPB SCH ×3 (06:07→18:15)
--- NOTE | 2017-05-21 07:55 | CP.PCM.PN ---
<Bobby Hernández - Last Filed: 05/21/17 22:59> Subjective - Date & Time of Evaluation Date of Evaluation: 05/21/17 Time of Evaluation: 09:30 - Subjective Subjective: Medicine progress note for Dr. Doran Patient seen and examined. Patient complaining of chills, headache, and diffuse body aches. Denies fever, chest pain, dyspnea, abdominal pain, dysuria. Objective - Vital Signs/Intake and Output Vital Signs (last 24 hours): Temp Pulse Resp BP Pulse Ox 98.6 F 132 H 20 112/64 98 05/21/17 07:48 05/21/17 07:48 05/21/17 04:00 05/21/17 07:48 05/21/17 04:00 Intake and Output: 05/21/17 05/21/17 06:59 18:59 Intake Total 1250 Output Total 500 Balance 750 - Medications Medications: Current Medications Aspirin (Ecotrin) 81 mg PO DAILY [facility] Enoxaparin Sodium (Lovenox) 40 mg SC DAILY [facility] Vancomycin/Sodium Chloride (Vancomycin 1 Gm/Ns 200 Ml) 1 gm in 200 mls @ 133.333 mls/hr IVPB Q24H [facility] Stop: 05/27/17 21:01 Sodium Chloride (Sodium Chloride 0.9%) 1,000 mls @ 100 mls/hr IV .Q10H [facility] Last Admin: 05/21/17 05:00 Dose: 100 mls/hr Piperacillin Sod/Tazobactam Sod (Zosyn 3.375 Gm Iv Premix) 3.375 gm in 50 mls @ 100 mls/hr IVPB Q8H [facility] Last Admin: 05/21/17 06:07 Dose: 100 mls/hr Lorazepam (Ativan) 1 mg IVP Q6H PRN PRN Reason: Symptoms of alcohol withdrawl Ondansetron HCl (Zofran Inj) 4 mg IVP Q6 PRN PRN Reason: Nausea/Vomiting Oseltamivir Phosphate (Tamiflu Cap) 75 mg PO BID [facility] Stop: 05/26/17 10:01 Pantoprazole Sodium (Protonix Inj) 40 mg IVP DAILY [facility] Pneumococcal Polyvalent Vaccine (Pneumovax 23 Vaccine) 0.5 ml IM .ONCE ONE Stop: 05/22/17 14:01 Saccharomyces Boulardii (Florastor) 250 mg PO BID [facility] - Labs Labs: 05/20/17 19:08 05/20/17 19:08 PT 24.1 SECONDS (9.7-12.2) H 05/20/17 19:08 INR 2.1 05/20/17 19:08 APTT 39 SECONDS (21-34) H 05/20/17 19:08 - Constitutional Appears: No Acute Distress - Head Exam Head Exam: ATRAUMATIC, NORMOCEPHALIC - Eye Exam Eye Exam: EOMI - ENT Exam ENT Exam: Mucous Membranes Dry - Respiratory Exam Respiratory Exam: Clear to Ausculation Bilateral, NORMAL BREATHING PATTERN. absent: Rales, Rhonchi, Wheezes - Cardiovascular Exam Cardiovascular Exam: Tachycardia, Irregular Rhythm, +S1, +S2 - GI/Abdominal Exam GI & Abdominal Exam: Distended, Soft, Hernia (umbilical), Normal Bowel Sounds. 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 ASA 81 mg PO daily started Hyponatremia 127 on admission, low compared to baseline F/U urine Osm, Urine Na, and serum Osm Diarrhea F/U stool studies Anemia Baseline H/H: 01/25, on admission: 12/23.8 Continue to monitor F/u iron, TIBC, %saturation, ferritin, retic count, folate, B12 Hx of Atrial Fibrillation Not on any anticoagulation (Hx of varices and medication non-compliance) EKG showed a-fib with RVR Cardizem 10 mg IV stat administered Cardizem 30 mg PO Q6 with holding parameters ordered Alcohol Decompensated Cirrhosis MELD 20 on admission Hepatitis panel negative 11/10/16 AFP 2.3 11/10/16 Ammonia 34 Elevated T. Bili Continue to monitor Hx Alcohol Abuse Alcohol Serum <10 UDS negative Prophylactic Measure GI PPX: Protonix 40mg IVP Contraindicated DVT PPx for history of varices SCD c/i Florastor 250mg PO BID Case DW Dr. Andreea Hernández PGY-1 <Radha Doran V - Last Filed: 05/27/17 13:10> Objective - Vital Signs/Intake and Output Vital Signs (last 24 hours): Temp Pulse Resp BP Pulse Ox 97.6 F 81 20 127/70 100 05/27/17 08:32 05/27/17 08:32 05/27/17 08:32 05/27/17 09:38 05/27/17 08:32 Intake and Output: 05/27/17 05/27/17 06:59 18:59 Intake Total 540 475 Output Total 400 325 Balance 140 150 - Medications Medications: Current Medications Acetaminophen (Tylenol 325mg Tab) 650 mg PO Q6 PRN PRN Reason: Temperature Albuterol Sulfate (Albuterol 0.083% Inhal Laura (2.5 Mg/3 Ml) Ud) 2.5 mg INH RQ4 [facility] Last Admin: 05/27/17 11:00 Dose: Not Given Aspirin (Ecotrin) 81 mg PO DAILY [facility] Last Admin: 05/27/17 09:38 Dose: 81 mg Diltiazem HCl (Cardizem Cd) 120 mg PO DAILY [facility] Last Admin: 05/27/17 09:38 Dose: 120 mg Diphenhydramine HCl (Benadryl) 25 mg IVP PRN PRN PRN Reason: Allergy symptoms Ferrous Sulfate (Feosol) 325 mg PO DAILY [facility] Last Admin: 05/27/17 09:49 Dose: 325 mg Furosemide (Lasix) 40 mg IVP DAILY [facility] Last Admin: 05/27/17 09:38 Dose: 40 mg Guaifenesin/Dextromethorphan (Robitussin Dm) 5 ml PO Q4H PRN PRN Reason: Cough Piperacillin Sod/Tazobactam (Sod 3.375 gm/ Sodium Chloride) 100 mls @ 100 mls/ hr IVPB Q8H [facility] Last Admin: 05/27/17 03:33 Dose: 100 mls/hr Vancomycin/Sodium Chloride (Vancomycin 1 Gm/Ns 200 Ml) 1 gm in 200 mls @ 133 mls/hr IVPB Q12H [facility] Stop: 05/31/17 20:01 Last Admin: 05/27/17 08:39 Dose: 133 mls/hr Lactic Acid (Lac-Hydrin 12% Lotion (225 G)) 0 gm EXT DAILY [facility] Last Admin: 05/27/17 09:40 Dose: 1 applic Lorazepam (Ativan) 1 mg IVP Q6H PRN PRN Reason: Symptoms of alcohol withdrawl Ondansetron HCl (Zofran Inj) 4 mg IVP Q6 PRN PRN Reason: Nausea/Vomiting Pantoprazole Sodium (Protonix Ec Tab) 40 mg PO DAILY [facility] Last Admin: 05/27/17 09:38 Dose: 40 mg Saccharomyces Boulardii (Florastor) 250 mg PO BID [facility] Last Admin: 05/27/17 09:38 Dose: 250 mg - Labs Labs: 05/27/17 07:06 05/27/17 07:06 PT 23.0 SECONDS (9.7-12.2) H 05/26/17 11:44 INR 2.0 05/26/17 11:44 APTT 39 SECONDS (21-34) H 05/20/17 19:08 Attending/Attestation - Attestation I have personally seen and examined this patient.: Yes I have fully participated in the care of the patient.: Yes I have reviewed all pertinent clinical information, including history, physical exam and plan: Yes Notes (Text): This is late computer entry for 05/21/17. Patient seen, examined and case discussed with lpn or medical assistant. Patient this morning had atrial fibrillation RVR with HR 130-140s; patient given Cardizem 10mg IVPX1 and started on Cardizem 30mg PO6H. Monitor on telemetry. Patient not started on chemical anticoagulation given he has a history of varices and medication non-compliance). Patient is ordered for echocardiogram given hx of atrial fibrillation, most recent echocardiogram available to me I believe it is from 2 years ago. Patient appears visibly sick. Patient reports body aches and pains. Patient's right lower extremity is visually bigger compared to left lower extremity. Patient has completed venous doppler in the ED upon admission, associated erythema, and mild weeping over the extremities. Awaiting blood cultures, urine , and wound cultures. Patient is on prophylactic IV antibiotics and tamiflu. Assessment/Plan 1) Sepsis RLE Cellulitis * On admission: Febrile, tachycardic, leukocytosis with left shift, lactate 2.5 -> 1.3 * Source suspecting 2/2 UTI and RLE Cellulitis * NS @ 100cc/hr * Zosyn 3.375g IVQ8H (active since 05/21/17), Vancomycin 1 gram IV qdaily-->f/u vanco trough 05/23/17 (before 4th dose) * Procalcitonin 3.93 * F/U wound culture * F/u Urine culture * F/u Blood cultures * Order for Rapid Strep test 2) Possible Influenza? 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 * ASA 81 mg PO daily started 4) Hyponatremia * 127 on admission, low compared to baseline * F/U urine Osm, Urine Na, and serum Osm 5) Diarrhea * F/U stool studies 6) Anemia * likely chronic disease * Baseline H/H: 01/25, on admission: 12/23.8 * Continue to monitor * F/u iron, TIBC, %saturation, ferritin, retic count, folate, B12 7) Hx of Atrial Fibrillation * Not on any chemical anticoagulation (Hx of varices and medication non- compliance) * EKG showed a-fib with RVR * 05/21: Cardizem 10 mg IV stat administered, then started on Cardizem 30 mg PO Q6 with holding parameters ordered * Order for echocardiogram 8) Alcohol Decompensated Cirrhosis * MELD 20 on admission * Hepatitis panel negative 11/10/16 * AFP 2.3 11/10/16 * Ammonia 34 9) Hx Alcohol Abuse * Alcohol Serum <10 * UDS negative * Patient does not appear acute in withdrawal 10) Prophylactic Measure * GI PPX: Protonix 40mg IVP * Contraindicated DVT PPx for history of varices; patient refused dvt pxx and did not rceive it * SCD c/i * Florastor 250mg PO BID
--- NOTE | 2017-05-21 08:14 | RAD ---
HISTORY: fever COMPARISON: Chest radiographs 05/17/2017. FINDINGS: LUNGS: No active pulmonary disease. PLEURA: No significant pleural effusion identified, no pneumothorax apparent. CARDIOVASCULAR: Upper limits normal cardiac size. OSSEOUS STRUCTURES: No significant abnormalities. VISUALIZED UPPER ABDOMEN: Normal. OTHER FINDINGS: None. IMPRESSION: Stable the cardiac silhouette, upper limits normal size. No pulmonary vascular derangement appreciable. No infiltrate, pleural effusion or pneumothorax identified.
[2017-05-21] MEDS: Saccharomyces Boulardi 250 mg Cap PO SCH ×3 (08:21→18:15)
[2017-05-21] MEDS: Enoxaparin 40 mg Syringe SC SCH ×2 (09:12→09:22)
[2017-05-21 09:13] LABS: ALB/GLOB RATIO 0.5 (1.0-2.1); ALBUMIN 2.3 g/dL (3.5-5.0); ALT/SGPT 33 U/L (21-72); AST/SGOT 85 U/L (17-59); BLOOD UREA NITROGEN 14 mg/dL (9-20); CALCIUM 7.1 mg/dl (8.6-10.4); GFR AFRICAN-AMERICAN > 60; GFR NON-AFRICAN AMERICAN > 60; MAGNESIUM 1.3 mg/dL (1.6-2.3)
[2017-05-21 10:20] LABS: MEAN CORPUSCULAR HEMOGLOBIN 30.5 pg (27.0-31.0); MEAN CORPUSCULAR HGB CONC 34.2 g/dL (33.0-37.0); MEAN PLATELET VOLUME 9.2 fL (7.2-11.7); PLATELET COUNT 167 K/uL (130-400); RBC 2.62 Mil/uL (4.40-5.90); RED CELL DISTRIBUTION WIDTH 21.2 % (11.5-14.5); WHITE BLOOD COUNT 13.1 K/uL (4.8-10.8)
[2017-05-21 10:24] LABS: LYMPH # 0.8 K/uL (1.0-4.3); MONO # 1.3 K/uL (0.0-0.8); NEUT # 10.9 K/uL (1.8-7.0)
[2017-05-21 10:25] LABS: EOS # 0.1 K/uL (0.0-0.7)
[2017-05-21 10:31] LABS: BANDS 2 % (0-2); BASOPHIL 2 % (0-2); LYMPHOCYTE 8 % (20-40); MONOCYTE 9 % (0-10); NEUTROPHIL 79 % (50-75); TOTAL CELLS COUNTED 100
[2017-05-21 10:32] LABS: ANISOCYTOSIS MODERATE; PLATELET ESTIMATE NORMAL (NORMAL); POIKILOCYTOSIS SLIGHT; TARGET CELLS MODERATE
[2017-05-21] MEDS ORDERED: guaiFENesin DM 100 mg-10 mg/5 ml UD PO PRN (10:46)
--- NOTE | 2017-05-21 11:09 | CARD ---
APPROVED REPORT EKG Measurement Heart [id number] <Conclusion> Atrial fibrillation with rapid ventricular response with premature ventricular or aberrantly conducted complexes Abnormal ECG
[2017-05-21] MEDS: Magnesium Sulfate 1 gm in D5W 1 GM/100 ML BAG IVPB SCH (11:57)
[2017-05-21 13:43] LABS: LEGIONELLA AG URINE NEGATIVE (NEGATIVE)
--- NOTE | 2017-05-21 13:44 | VASCLAB ---
PROCEDURE: Lower Extremity Venous Duplex Exam. HISTORY: Leg swelling PRIORS: None. TECHNIQUE: Bilateral common femoral, femoral, popliteal and posterior tibial, peroneal and great saphenous veins were evaluated. Flow was assessed with color Doppler, compressibility, assessment of phasic flow and augmentation response. Report prepared by GERALD Fry, RVT FINDINGS: RIGHT: 1. Common Femoral Vein: 1.1. Compressibility - Fully compressible: Thrombus - None : Flow - Phasic: Augmentation -Normal: Reflux - None. 2. Femoral Vein: 2.1. Compressibility - Fully compressible: Thrombus - None : Flow - Phasic: Augmentation -Normal: Reflux - None. 3. Popliteal Vein: 3.1. Compressibility - Fully compressible: Thrombus - None : Flow - Phasic: Augmentation -Normal: Reflux - None. 4. Posterior Tibial Vein: 4.1. Compressibility - Fully compressible: Thrombus - None: Flow - Phasic: Augmentation -Normal: Reflux - None. 5. Peroneal Vein: 5.1. Compressibility - Fully compressible: Thrombus - None: Flow - Phasic: Augmentation -Normal: Reflux - None. 6. Great Saphenous Vein: 6.1. Compressibility - Partial: Thrombus - Chronic: Flow - Reduced : Augmentation - None: Reflux - None. LEFT: 1. Common Femoral Vein: 1.1. Compressibility - Fully compressible: Thrombus - None: Flow - Phasic: Augmentation -Normal: Reflux - None. 2. Femoral Vein: 2.1. Compressibility - Fully compressible: Thrombus - None: Flow - Phasic: Augmentation -Normal: Reflux - None. 3. Popliteal Vein: 3.1. Compressibility - Fully compressible: Thrombus - None : Flow - Phasic: Augmentation -Normal: Reflux - None. 4. Posterior Tibial Vein: 4.1. Compressibility - Fully compressible: Thrombus - None: Flow - Phasic: Augmentation -Normal: Reflux - None. 5. Peroneal Vein: 5.1. Compressibility - Fully compressible: Thrombus - None: Flow - Phasic: Augmentation -Normal: Reflux - None. 6. Great Saphenous Vein: 6.1. Compressibility - Fully compressible: Thrombus - None: Flow - Phasic: Augmentation - Normal: Reflux - None. OTHER FINDINGS: Right: None significant. Left: None significant. IMPRESSION: Right: Chronic thrombosis of the right greater saphenous vein with reduction of venous return. No evidence of deep vein thrombosis of the right lower extremity. Normal valve function noted of the right side. Left: No evidence of deep or superficial vein thrombosis of the left lower extremity. Normal valve function noted of the left side.
[2017-05-21 14:47] LABS: OSMOLALITY,URINE 722 mosm/kg (300-1000)
[2017-05-21 18:07] LABS: BARBITURATES, UR NEGATIVE (NEGATIVE); BENZODIAZEPINES, UR NEGATIVE (NEGATIVE); OPIATES, UR NEGATIVE (NEGATIVE); PHENCYCLIDINE, UR NEGATIVE (NEGATIVE)
[2017-05-21] MEDS: Fluticasone Nasal 50 mcg/Spray NAS SCH (18:22)
[2017-05-22] MEDS: Piperacill/Tazo 3.375gm in Dex 3.375 GM/50 ML BAG IVPB SCH ×3 (04:28→20:00)
[2017-05-22] MEDS: Sodium Chloride 0.9% 1,000 ML IV SCH ×3 (04:36→19:00)
[2017-05-22 08:32] LABS: HEMOGLOBIN 7.9 g/dL (12.0-18.0); MEAN CELL VOLUME 89.5 fL (80.0-94.0); MEAN CORPUSCULAR HEMOGLOBIN 30.4 pg (27.0-31.0); MEAN PLATELET VOLUME 8.7 fL (7.2-11.7); RBC 2.6 Mil/uL (4.40-5.90); RED CELL DISTRIBUTION WIDTH 21.6 % (11.5-14.5); WHITE BLOOD COUNT 9.8 K/uL (4.8-10.8)
[2017-05-22 08:49] LABS: IRON 25 ug/dL (49-181)
[2017-05-22 08:59] LABS: TOTAL IRON BINDING CAPACITY 266 ug/dL (250-450)
[2017-05-22 09:02] LABS: ALB/GLOB RATIO 0.5 (1.0-2.1); ALBUMIN 2.3 g/dL (3.5-5.0); ALT/SGPT 30 U/L (21-72); AST/SGOT 80 U/L (17-59); BLOOD UREA NITROGEN 14 mg/dL (9-20); GFR AFRICAN-AMERICAN > 60; GFR NON-AFRICAN AMERICAN > 60; MAGNESIUM 1.6 mg/dL (1.6-2.3)
[2017-05-22 09:03] LABS: % IRON SATURATION 9 (20-55)
[2017-05-22 09:47] LABS: FERRITIN 28.5 ng/mL
[2017-05-22] MEDS ORDERED: Influenza Vaccine 60 mcg/0.5 mL SYR (4YR UP) IM ONE (10:00)
[2017-05-22 10:17] LABS: FOLATE 7.3 ng/mL
[2017-05-22 10:27] LABS: EOS # 0.1 K/uL (0.0-0.7); LYMPH # 1.6 K/uL (1.0-4.3); MONO # 1.1 K/uL (0.0-0.8); NEUT # 7.1 K/uL (1.8-7.0)
[2017-05-22] MEDS: Saccharomyces Boulardi 250 mg Cap PO SCH ×2 (10:50→18:58)
[2017-05-22] MEDS: Fluticasone Nasal 50 mcg/Spray NAS SCH (10:50)
[2017-05-22] MEDS ORDERED: Pneumococcal 23-Valent Vaccine IM ONE (14:00)
--- NOTE | 2017-05-22 17:02 | CP.PCM.PN ---
<Jam Woo - Last Filed: 05/22/17 16:48> Subjective - Date & Time of Evaluation Date of Evaluation: 05/22/17 Time of Evaluation: 08:00 - Subjective Subjective: Medicine progress note for Dr. Doran Patient seen and examined. Patient complaining of mild wheezing and persistent swelling of feet. Reports feeling weak. Denies fever, chest pain, dyspnea, abdominal pain, dysuria. Objective - Vital Signs/Intake and Output Vital Signs (last 24 hours): Temp Pulse Resp BP Pulse Ox 98 F 87 20 121/68 96 05/22/17 15:00 05/22/17 15:00 05/22/17 15:00 05/22/17 15:00 05/22/17 15:00 Intake and Output: 05/22/17 05/22/17 06:59 18:59 Intake Total 880 Balance 880 - Medications Medications: Current Medications Albuterol Sulfate (Albuterol 0.083% Inhal Laura (2.5 Mg/3 Ml) Ud) 2.5 mg INH RQ6 PRN PRN Reason: Shortness of Breath Aspirin (Ecotrin) 81 mg PO DAILY [facility] Last Admin: 05/22/17 10:50 Dose: 81 mg Diltiazem HCl (Cardizem) 30 mg PO Q6H [facility] Stop: 05/23/17 03:00 Last Admin: 05/22/17 10:50 Dose: 30 mg Diltiazem HCl (Cardizem Cd) 120 mg PO DAILY [facility] Fluticasone Propionate (Flonase) 1 spr STEPHEN DAILY [facility] Last Admin: 05/22/17 10:50 Dose: 1 spr Guaifenesin/Dextromethorphan (Robitussin Dm) 5 ml PO Q4H PRN PRN Reason: Cough Sodium Chloride (Sodium Chloride 0.9%) 1,000 mls @ 100 mls/hr IV .Q10H [facility] Last Admin: 05/22/17 10:56 Dose: Not Given Piperacillin Sod/Tazobactam Sod (Zosyn 3.375 Gm Iv Premix) 3.375 gm in 50 mls @ 100 mls/hr IVPB Q8H [facility] Last Admin: 05/22/17 10:50 Dose: 100 mls/hr Vancomycin/Sodium Chloride (Vancomycin 1 Gm/Ns 200 Ml) 1 gm in 200 mls @ 133.333 mls/hr IVPB Q12H [facility] Stop: 05/27/17 16:01 Gentamicin Sulfate 80 mg/ (Sodium Chloride) 102 mls @ 100 mls/hr IVPB Q8H [facility] Last Admin: 05/22/17 16:38 Dose: 100 mls/hr Lorazepam (Ativan) 1 mg IVP Q6H PRN PRN Reason: Symptoms of alcohol withdrawl Ondansetron HCl (Zofran Inj) 4 mg IVP Q6 PRN PRN Reason: Nausea/Vomiting Oseltamivir Phosphate (Tamiflu Cap) 75 mg PO BID [facility] Stop: 05/26/17 10:01 Last Admin: 05/22/17 10:50 Dose: 75 mg Pantoprazole Sodium (Protonix Inj) 40 mg IVP DAILY [facility] Last Admin: 05/22/17 10:50 Dose: 40 mg Saccharomyces Boulardii (Florastor) 250 mg PO BID [facility] Last Admin: 05/22/17 10:50 Dose: 250 mg - Labs Labs: 05/22/17 08:18 05/22/17 08:18 PT 24.1 SECONDS (9.7-12.2) H 05/20/17 19:08 INR 2.1 05/20/17 19:08 APTT 39 SECONDS (21-34) H 05/20/17 19:08 - Additional Findings Additional findings: - Constitutional Appears: No Acute Distress - Head Exam Head Exam: ATRAUMATIC, NORMOCEPHALIC - Eye Exam Eye Exam: EOMI - ENT Exam ENT Exam: Mucous Membranes Dry - Respiratory Exam Respiratory Exam: Wheezes (mild, diffuse), NORMAL BREATHING PATTERN. absent: Rales, Rhonchi - Cardiovascular Exam Cardiovascular Exam: Tachycardia, Irregular Rhythm, +S1, +S2 - GI/Abdominal Exam GI & Abdominal Exam: Distended, Soft, Hernia (umbilical), Normal Bowel Sounds. 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 WBC 9.8, improving. On admission: Febrile, tachycardiac, leukocytosis with left shift, lactate 2.5 - > 1.3 Source 2/2 UTI and questionable RLE Cellulitis Meds: NS @ 100cc/hr Zosyn Q8, Vanco daily, f/u vanco trough 05/23/17 (before 4th dose) Procalcitonin 3.93 Possible Influenza? Although rapid flu negative, patient's symptoms concerning Empiric treatment with Tamiflu 75 mg PO BID for 6 days RLE Cellulitis with Chronic Venous Stasis 05/22: wound culture +Group B Strep / +Staph Aureus. Consult ID, Dr. Bloom - f/u recs. f/u echo to r/o vegetation f/u portable CXR right LE weeping puncture wound on admission Wells Score of 3 Venous doppler reveals no DVT bilaterally but 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 ASA 81 mg PO daily started Hyponatremia 05/22: urine Osm 722, Urine Na 7 f/u serum Osm 127 on admission, low compared to baseline Diarrhea F/U stool studies Anemia 05/22: iron, 25L, TIBC, 266N; %saturation 9L, ferritin 28.5N, retic count 3.5H, folate 7.3, B12 705. Iron deficient anemia - will initiate iron replacement after infection cleared in 2-3 days. Baseline H/H: 01/25, on admission: 12/23.8 Continue to monitor Hx of Atrial Fibrillation 05/22: HR much improved (92-108); Continue Cardizem 30mg PO Q6 today. Order placed to d/c cardizem 30 PO q6H and start Cardizem CD 120 qD on 05/23/17. Not on any anticoagulation (Hx of varices and medication non-compliance) EKG showed a-fib with RVR Cardizem 10 mg IV stat administered Cardizem 30 mg PO Q6 with holding parameters ordered Alcohol Decompensated Cirrhosis MELD 20 on admission Hepatitis panel negative 11/10/16 AFP 2.3 11/10/16 Ammonia 34 Elevated T. Bili Continue to monitor Hx Alcohol Abuse Alcohol Serum <10 UDS negative Prophylactic Measure GI PPX: Protonix 40mg IVP Contraindicated DVT PPx for history of varices SCD c/i Florastor 250mg PO BID Case DW Dr. Andreea Woo PGY-2 <Radha Doran V - Last Filed: 05/27/17 13:23> Objective - Vital Signs/Intake and Output Vital Signs (last 24 hours): Temp Pulse Resp BP Pulse Ox 97.6 F 81 20 127/70 100 05/27/17 08:32 05/27/17 08:32 05/27/17 08:32 05/27/17 09:38 05/27/17 08:32 Intake and Output: 05/27/17 05/27/17 06:59 18:59 Intake Total 540 475 Output Total 400 325 Balance 140 150 - Medications Medications: Current Medications Acetaminophen (Tylenol 325mg Tab) 650 mg PO Q6 PRN PRN Reason: Temperature Albuterol Sulfate (Albuterol 0.083% Inhal Laura (2.5 Mg/3 Ml) Ud) 2.5 mg INH RQ4 [facility] Last Admin: 05/27/17 11:00 Dose: Not Given Aspirin (Ecotrin) 81 mg PO DAILY [facility] Last Admin: 05/27/17 09:38 Dose: 81 mg Diltiazem HCl (Cardizem Cd) 120 mg PO DAILY [facility] Last Admin: 05/27/17 09:38 Dose: 120 mg Diphenhydramine HCl (Benadryl) 25 mg IVP PRN PRN PRN Reason: Allergy symptoms Ferrous Sulfate (Feosol) 325 mg PO DAILY [facility] Last Admin: 05/27/17 09:49 Dose: 325 mg Furosemide (Lasix) 40 mg IVP DAILY [facility] Last Admin: 05/27/17 09:38 Dose: 40 mg Guaifenesin/Dextromethorphan (Robitussin Dm) 5 ml PO Q4H PRN PRN Reason: Cough Piperacillin Sod/Tazobactam (Sod 3.375 gm/ Sodium Chloride) 100 mls @ 100 mls/ hr IVPB Q8H [facility] Last Admin: 05/27/17 03:33 Dose: 100 mls/hr Vancomycin/Sodium Chloride (Vancomycin 1 Gm/Ns 200 Ml) 1 gm in 200 mls @ 133 mls/hr IVPB Q12H [facility] Stop: 05/31/17 20:01 Last Admin: 05/27/17 08:39 Dose: 133 mls/hr Lactic Acid (Lac-Hydrin 12% Lotion (225 G)) 0 gm EXT DAILY [facility] Last Admin: 05/27/17 09:40 Dose: 1 applic Lorazepam (Ativan) 1 mg IVP Q6H PRN PRN Reason: Symptoms of alcohol withdrawl Ondansetron HCl (Zofran Inj) 4 mg IVP Q6 PRN PRN Reason: Nausea/Vomiting Pantoprazole Sodium (Protonix Ec Tab) 40 mg PO DAILY [facility] Last Admin: 05/27/17 09:38 Dose: 40 mg Saccharomyces Boulardii (Florastor) 250 mg PO BID [facility] Last Admin: 05/27/17 09:38 Dose: 250 mg - Labs Labs: 05/27/17 07:06 05/27/17 07:06 PT 23.0 SECONDS (9.7-12.2) H 05/26/17 11:44 INR 2.0 05/26/17 11:44 APTT 39 SECONDS (21-34) H 05/20/17 19:08 Attending/Attestation - Attestation I have personally seen and examined this patient.: Yes I have fully participated in the care of the patient.: Yes I have reviewed all pertinent clinical information, including history, physical exam and plan: Yes Notes (Text): This is a late computer entry for 05/22/17. Patient seen, examined and case discussed with day-time resident. Patient's H/H slowing downtrending. Will hold aspirin and monitor H/H if will need blood transfusion or no t. Patient's heart rate is rate controlled with Cardizem 30mg POq6H, will witch to Cardizem 120mg PO once day for tomorrow. Patient's blood cultures are positive. Will consult infectious disease for bacteremia. Pending official report of echocardiogram. Assessment/Plan 1) Sepsis Bactermia RLE Cellulitis * On admission: Febrile, tachycardiac, leukocytosis with left shift, lactate 2.5 -> 1.3 * Gentamicin Sulfate 8-mg IVPB Q 8H (active since 05/22/17) per ID * Zosyn 3.375 IV Q Q8H (active since 05/21/17) * Vancomycin 1gram IVPB Q12H (active since 05/22/17) changed from Vancomycin 1 gram IV Q24H * Follow-up Vancomycin trough 15:30 * Tamiflu 75mg PO BID (active since 05/21/17) * Procalcitonin 3.93 * Blood Culture (05/20/17): positive * Wound Culture (05/21/17): pending * Urine culture (05/20/17): no growth * Throat Culture (05/21/17): no beta group A isolated * pending echocardiogram 2) RLE Cellulitis with Chronic Venous Stasis * Right LE weeping puncture wound on admission -->improved * F/U wound culture * Venous doppler reveals no DVT bilaterally but 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 * ASA 81 mg PO daily started * Hold 05/23 Aspirin secondary to downtrending H/H 3) Hyponatremia SIADH * 127 on admission * Serum osmolality: 281 * Urine osmolality: elevated * Urine Random Sodium * Fluid Restriction: 1200mL 4) Diarrhea * F/U stool studies-->pending * Patient reports stools are normal. Will monitor 5) Anemia * Likely secondary to chronic disease * Baseline H/H: 01/25, on admission: 12/23.8 * Reticulocyte: 3.5 * Iron: 25 * TIBC: 266 * %saturation: 9 * Ferriti: 28.5 * Retic count:3.5 * Folate: 705 * B12: 7.3 * monitor H/H; possible patient will need blood transfusion if falls below 7 6) Hx of Atrial Fibrillation * Not on any anticoagulation (Hx of varices and medication non-compliance) * EKG showed a-fib with RVR following * 05/21/17 Cardizem 10 mg IV stat administered; started on Cardizem 30 mg PO Q6 with holding parameters ordered * 05/22/17: heart rate controlled on started on Cardizem 30 mg PO Q6H-->will switch to Cardizem CD 120mg PO daily tomorrow 7) Alcohol Decompensated Cirrhosis * MELD 20 on admission * Hepatitis panel negative 11/10/16 * AFP 2.3 11/10/16 * Ammonia 34 8) Hx Alcohol Abuse * Alcohol Serum <10 * UDS negative * Patient is not in acute withdrawal 9) Prophylactic Measure * GI PPX: Protonix 40mg IVP daily * Contraindicated DVT PPx for history of varices, and downtrending hemoglobin * SCD c/i * Florastor 250mg PO BID
--- NOTE | 2017-05-22 17:33 | RAD ---
HISTORY: wheezing COMPARISON: 05/20/2017 FINDINGS: LUNGS: No active pulmonary disease. PLEURA: No significant pleural effusion identified, no pneumothorax apparent. CARDIOVASCULAR: Normal. OSSEOUS STRUCTURES: No significant abnormalities. VISUALIZED UPPER ABDOMEN: Normal. OTHER FINDINGS: None. IMPRESSION: No active disease.
[2017-05-22] MEDS: Vancomycin 1 gm/NS 200 ml 1 GM/200 ML BAG IVPB SCH (18:00)
--- NOTE | 2017-05-22 18:10 | CP.PCM.CON ---
History of Present Illness - History of Present Illness History of Present Illness: dictated Past Patient History - Infectious Disease Hx of Infectious Diseases: None - Past Medical History & Family History Past Medical History?: Yes - Past Social History Smoking Status: Never Smoked - CARDIAC Hx Atrial Fibrillation: Yes Hx Cardia Arrhythmia: Yes Hx Congestive Heart Failure: No Hx Hypercholesterolemia: No Hx Hypertension: No (Pt denies) Hx Peripheral Edema: Yes - PULMONARY Hx Chronic Obstructive Pulmonary Disease (COPD): No Hx Pneumonia: Yes - NEUROLOGICAL Hx Seizures: (Pt denies) - HEENT Hx HEENT Problems: No - RENAL Hx Chronic Kidney Disease: No - ENDOCRINE/METABOLIC Hx Hypothyroidism: No - HEMATOLOGICAL/ONCOLOGICAL Hx Anemia: Yes Hx Human Immunodeficiency Virus (HIV): No (Pt denies) - INTEGUMENTARY Hx Cellulitis: Yes - MUSCULOSKELETAL/RHEUMATOLOGICAL Hx Arthritis: No Hx Fractures: Yes Hx Rheumatoid Arthritis: No - GASTROINTESTINAL Hx Gastrointestinal Disorders: Yes Other/Comment: umbilical hernia, Liver cirrhosis - GENITOURINARY/GYNECOLOGICAL Hx Sexually Transmitted Disorders: No (Pt denies) - PSYCHIATRIC Hx Substance Use: No - SURGICAL HISTORY Hx Surgeries: Yes Other/Comment: Surgery Rt arm - "artery" - ANESTHESIA Hx Anesthesia: Yes Hx Anesthesia Reactions: No Hx Malignant Hyperthermia: No Meds Allergies/Adverse Reactions: Allergies Allergy/AdvReac Type Severity Reaction Status Date / Time pollen extracts Allergy ITCHING Verified 05/20/17 18:05 - Medications Medications: Current Medications Albuterol Sulfate (Albuterol 0.083% Inhal Laura (2.5 Mg/3 Ml) Ud) 2.5 mg INH RQ6 PRN PRN Reason: Shortness of Breath Aspirin (Ecotrin) 81 mg PO DAILY [facility] Last Admin: 05/22/17 10:50 Dose: 81 mg Diltiazem HCl (Cardizem) 30 mg PO Q6H [facility] Stop: 05/23/17 03:00 Last Admin: 05/22/17 17:12 Dose: 30 mg Diltiazem HCl (Cardizem Cd) 120 mg PO DAILY [facility] Fluticasone Propionate (Flonase) 1 spr STEPHEN DAILY [facility] Last Admin: 05/22/17 10:50 Dose: 1 spr Guaifenesin/Dextromethorphan (Robitussin Dm) 5 ml PO Q4H PRN PRN Reason: Cough Sodium Chloride (Sodium Chloride 0.9%) 1,000 mls @ 100 mls/hr IV .Q10H [facility] Last Admin: 05/22/17 10:56 Dose: Not Given Piperacillin Sod/Tazobactam Sod (Zosyn 3.375 Gm Iv Premix) 3.375 gm in 50 mls @ 100 mls/hr IVPB Q8H [facility] Last Admin: 05/22/17 10:50 Dose: 100 mls/hr Vancomycin/Sodium Chloride (Vancomycin 1 Gm/Ns 200 Ml) 1 gm in 200 mls @ 133.333 mls/hr IVPB Q12H [facility] Stop: 05/27/17 16:01 Gentamicin Sulfate 80 mg/ (Sodium Chloride) 102 mls @ 100 mls/hr IVPB Q8H [facility] Last Admin: 05/22/17 16:38 Dose: 100 mls/hr Lorazepam (Ativan) 1 mg IVP Q6H PRN PRN Reason: Symptoms of alcohol withdrawl Ondansetron HCl (Zofran Inj) 4 mg IVP Q6 PRN PRN Reason: Nausea/Vomiting Oseltamivir Phosphate (Tamiflu Cap) 75 mg PO BID [facility] Stop: 05/26/17 10:01 Last Admin: 05/22/17 10:50 Dose: 75 mg Pantoprazole Sodium (Protonix Inj) 40 mg IVP DAILY [facility] Last Admin: 05/22/17 10:50 Dose: 40 mg Saccharomyces Boulardii (Florastor) 250 mg PO BID [facility] Last Admin: 05/22/17 10:50 Dose: 250 mg Results - Vital Signs Recent Vital Signs: Last Vital Signs Temp 98 F 05/22/17 15:00 Pulse 87 05/22/17 15:00 Resp 20 05/22/17 15:00 BP 121/68 05/22/17 15:00 Pulse Ox 96 05/22/17 15:00 - Labs Result Diagrams: 05/22/17 08:18 05/22/17 08:18 Labs: Laboratory Results - last 24 hr 05/22/17 05/22/17 05/22/17 08:18 08:18 08:18 WBC 9.8 RBC 2.60 L Hgb 7.9 L Hct 23.3 L MCV 89.5 MCH 30.4 MCHC 34.0 RDW 21.6 H Plt Count 173 MPV 8.7 Neut % (Auto) 72.0 Lymph % (Auto) 16.0 L [place] % (Auto) 11.0 H Eos % (Auto) 1.0 Baso % (Auto) 0.0 Neut # 7.1 H Lymph # 1.6 [place] # 1.1 H Eos # 0.1 Baso # 0.0 Retic Count Sodium 126 L Potassium 3.6 Chloride 100 Carbon Dioxide 23 Anion Gap 7 L BUN 14 Creatinine 1.0 Est GFR ( Amer) > 60 Est GFR (Non-Af Amer) > 60 Random Glucose 127 H Calcium 7.0 L Phosphorus 2.5 Magnesium 1.6 Iron TIBC % Saturation Ferritin 28.5 Total Bilirubin 2.8 H AST 80 H ALT 30 Alkaline Phosphatase 159 H Total Protein 7.1 Albumin 2.3 L Globulin 4.8 H Albumin/Globulin Ratio 0.5 L Vitamin B12 705 Folate 7.3 Free T4 1.31 TSH 3rd Generation 2.15 05/22/17 05/22/17 08:18 08:18 WBC RBC Hgb Hct MCV MCH MCHC RDW Plt Count MPV Neut % (Auto) Lymph % (Auto) [place] % (Auto) Eos % (Auto) Baso % (Auto) Neut # Lymph # [place] # Eos # Baso # Retic Count 3.5 H Sodium Potassium Chloride Carbon Dioxide Anion Gap BUN Creatinine Est GFR ( Amer) Est GFR (Non-Af Amer) Random Glucose Calcium Phosphorus Magnesium Iron 25 L TIBC 266 % Saturation 9 L Ferritin Total Bilirubin AST ALT Alkaline Phosphatase Total Protein Albumin Globulin Albumin/Globulin Ratio Vitamin B12 Folate Free T4 TSH 3rd Generation Assessment & Plan (1) Streptococcal septicemia Status: Acute (2) Cellulitis of right leg without foot Status: Acute
[2017-05-22] MEDS: Albuterol 0.083% Inhal Sol (2.5 mg/3 mL) UD INH PRN (19:53)
[2017-05-22] MEDS ORDERED: Vancomycin 1 gm/NS 200 ml 1 GM/200 ML BAG IVPB SCH (21:00)
--- NOTE | 2017-05-22 23:43 | CARD ---
APPROVED REPORT EKG Measurement Heart [id number] <Conclusion> Atrial fibrillation with rapid ventricular response Abnormal ECG
[2017-05-23] MEDS: Piperacill/Tazo 3.375gm in Dex 3.375 GM/50 ML BAG IVPB SCH ×3 (02:38→20:30)
[2017-05-23] MEDS: Sodium Chloride 0.9% 1,000 ML IV SCH (04:05)
[2017-05-23] MEDS: Albuterol 0.083% Inhal Sol (2.5 mg/3 mL) UD INH PRN (04:20)
[2017-05-23] MEDS: Vancomycin 1 gm/NS 200 ml 1 GM/200 ML BAG IVPB SCH ×2 (04:35→21:20)
--- NOTE | 2017-05-23 04:36 | CON ---
DATE: HISTORY OF PRESENT ILLNESS: I was asked to see this patient for positive blood cultures. This patient has Staph aureus as well as strep group B in the blood and he is a 56-year-old male. He has a history of atrial fibrillation, liver cirrhosis, varices, anemia, history of alcoholism, chronic leg edema, venous insufficiency, dermatitis, changes in the right leg as well as left leg and right now he has the right leg, which was very swollen, edematous and with redness. He has been having fever for 3 days. He also had body aches, running nose. He came to the emergency room. He has been homeless, he says, for a week, that is what he is saying, and he has been also having sputum with brownish color sputum and he is presently admitted. I am asked to evaluate for SHERRI management as cultures have come out positive. He denies any abdominal pain at this time, but has prominent umbilical hernia. PAST MEDICAL HISTORY: As above. He denies any COPD. He denies seizure disorders. He has no kidney problems. He denies any heart problems. He denies any HIV disease. He does have cellulitis and liver cirrhosis and was having sputum, which was brownish and he is isolation at this time. ALLERGIES: HE IS NOT ALLERGIC TO ANY MEDICINES. SOCIAL HISTORY: He lives alone. He denies smoking. Quit drinking 10 years ago. FAMILY HISTORY: Not contributory. He says he used to have an apartment until one week ago when he and he was asking for a loan. ALLERGIES: HE IS ALLERGIC TO POLLEN EXTRACT, HE SAYS. MEDICATIONS: Include aspirin, Lovenox, vancomycin, sodium chloride, lorazepam, and Zofran. This is in the ER, but now he is on nebulizer treatment, aspirin, Cardizem, Flonase, gentamicin that I just started him on and he is on Tamiflu. He is on Zosyn and he is also on vancomycin. We just added vancomycin because of the positive cultures now. REVIEW OF SYSTEMS: . He denies any headache. Denies ear, nose or throat problems. He does complain of phlegm and he is having trouble breathing at this time and he has a tense abdomen, but denies any pain. He does have leg swelling and redness on the right leg more than the left, and has stasis dermatitis now. PHYSICAL EXAMINATION: VITAL SIGNS: T-max is 98, pulse 87, blood pressure 121/68, respirations at 20. HEENT: Head is atraumatic. Normocephalic. Pupils are reacting to light. NECK: Supple. JVP is flat. LUNGS: Have bilateral expiratory wheeze. HEART: S1 and S2 is irregularly irregular. ABDOMEN: Soft, distended with umbilical hernia, which is nonreducible and . EXTREMITIES: Has stasis dermatitis with edema, increased warmth below the knee until the ankle and swelling present on the left. He was admitted with a lactate level of 2.5 and his right leg has weeping edema as well as punctate lesions present. LABORATORY DATA: Labs are noted. Lab show white count . IMPRESSION: My impression is that this patient has Staphylococcus and Streptococcus, most likely due to the cellulitis of the lower extremity and we are adequately covering it with vancomycin, Zosyn and we will follow. We will get gentamicin peak and trough on the fourth dose, vancomycin peak and trough and an echocardiogram was already done as per Dr. Doran; to follow for any vegetation. We will follow and review the labs. Jana Bloom MD
[2017-05-23 07:10] LABS: HEMOGLOBIN 7.7 g/dL (12.0-18.0); MEAN CELL VOLUME 88.7 fL (80.0-94.0); MEAN CORPUSCULAR HEMOGLOBIN 30.6 pg (27.0-31.0); MEAN CORPUSCULAR HGB CONC 34.4 g/dL (33.0-37.0); MEAN PLATELET VOLUME 8.8 fL (7.2-11.7); RBC 2.51 Mil/uL (4.40-5.90); RED CELL DISTRIBUTION WIDTH 22.1 % (11.5-14.5); WHITE BLOOD COUNT 10.6 K/uL (4.8-10.8)
[2017-05-23 07:13] LABS: ALB/GLOB RATIO 0.5 (1.0-2.1); ALBUMIN 2.4 g/dL (3.5-5.0); ALT/SGPT 31 U/L (21-72); AST/SGOT 72 U/L (17-59); BLOOD UREA NITROGEN 15 mg/dL (9-20); CALCIUM 7.2 mg/dl (8.6-10.4); GFR AFRICAN-AMERICAN > 60; GFR NON-AFRICAN AMERICAN > 60; MAGNESIUM 1.5 mg/dL (1.6-2.3)
--- NOTE | 2017-05-23 07:58 | CP.PCM.PN ---
Subjective - Date & Time of Evaluation Date of Evaluation: 05/23/17 Time of Evaluation: 07:55 - Subjective Subjective: Medical Attending Note: Patient seen and examined this morning. Patient denies fever, reports headache, reports breathing is better compared to yesterday, denies abdominal pain, denies nausea, denies vomitting, reports able to going to the bathroom. patient cellulitic area over the right lower extremity is almost resolved. Objective - Vital Signs/Intake and Output Vital Signs (last 24 hours): Temp Pulse Resp BP Pulse Ox 98.7 F 96 H 20 130/65 94 L 05/22/17 23:15 05/23/17 04:19 05/22/17 23:15 05/22/17 23:15 05/22/17 23:15 Intake and Output: 05/23/17 05/23/17 06:59 18:59 Intake Total 2069 Balance 2069 - Medications Medications: Current Medications Albuterol Sulfate (Albuterol 0.083% Inhal Laura (2.5 Mg/3 Ml) Ud) 2.5 mg INH RQ6 PRN PRN Reason: Shortness of Breath Last Admin: 05/23/17 04:20 Dose: 2.5 mg Aspirin (Ecotrin) 81 mg PO DAILY [facility] Last Admin: 05/22/17 10:50 Dose: 81 mg Diltiazem HCl (Cardizem Cd) 120 mg PO DAILY [facility] Fluticasone Propionate (Flonase) 1 spr STEPHEN DAILY [facility] Last Admin: 05/22/17 10:50 Dose: 1 spr Guaifenesin/Dextromethorphan (Robitussin Dm) 5 ml PO Q4H PRN PRN Reason: Cough Sodium Chloride (Sodium Chloride 0.9%) 1,000 mls @ 100 mls/hr IV .Q10H [facility] Last Admin: 05/23/17 04:05 Dose: 100 mls/hr Piperacillin Sod/Tazobactam Sod (Zosyn 3.375 Gm Iv Premix) 3.375 gm in 50 mls @ 100 mls/hr IVPB Q8H [facility] Last Admin: 05/23/17 02:38 Dose: 100 mls/hr Vancomycin/Sodium Chloride (Vancomycin 1 Gm/Ns 200 Ml) 1 gm in 200 mls @ 133.333 mls/hr IVPB Q12H [facility] Stop: 05/27/17 16:01 Last Admin: 05/23/17 04:35 Dose: 133.333 mls/hr Gentamicin Sulfate 80 mg/ (Sodium Chloride) 102 mls @ 100 mls/hr IVPB Q8H [facility] Last Admin: 05/23/17 07:06 Dose: 100 mls/hr Magnesium Sulfate/Dextrose (Magnesium Sulfate 1 Gm/100 Ml D5w) 1 gm in 100 mls @ 300 mls/hr IVPB Q30M [facility] Stop: 05/23/17 08:49 Lorazepam (Ativan) 1 mg IVP Q6H PRN PRN Reason: Symptoms of alcohol withdrawl Ondansetron HCl (Zofran Inj) 4 mg IVP Q6 PRN PRN Reason: Nausea/Vomiting Oseltamivir Phosphate (Tamiflu Cap) 75 mg PO BID [facility] Stop: 05/26/17 10:01 Last Admin: 05/22/17 18:59 Dose: 75 mg Pantoprazole Sodium (Protonix Inj) 40 mg IVP DAILY [facility] Last Admin: 05/22/17 10:50 Dose: 40 mg Saccharomyces Boulardii (Florastor) 250 mg PO BID [facility] Last Admin: 05/22/17 18:58 Dose: 250 mg - Labs Labs: 05/23/17 06:43 05/23/17 06:43 PT 24.1 SECONDS (9.7-12.2) H 05/20/17 19:08 INR 2.1 05/20/17 19:08 APTT 39 SECONDS (21-34) H 05/20/17 19:08 - Constitutional Appears: Non-toxic, No Acute Distress - Head Exam Head Exam: NORMAL INSPECTION - Eye Exam Eye Exam: EOMI - Respiratory Exam Respiratory Exam: Rales, NORMAL BREATHING PATTERN - Cardiovascular Exam Cardiovascular Exam: REGULAR RHYTHM, +S1, +S2 - GI/Abdominal Exam GI & Abdominal Exam: Distended, Soft, Hernia, Normal Bowel Sounds. absent: Guarding, Rigid, Tenderness - Extremities Exam Extremities Exam: Pedal Edema Additional comments: Right lower extremity > Left Lower extremity Erythema over right lower extremity resolved - Back Exam Back Exam: absent: CVA tenderness (L), CVA tenderness (R) - Neurological Exam Neurological Exam: Alert, Awake, Oriented x3 Neuro motor strength exam: Left Upper Extremity: 5, Right Upper Extremity: 5, Left Lower Extremity: 5, Right Lower Extremity: 5 - Psychiatric Exam Psychiatric exam: Normal Affect, Normal Mood - Skin Skin Exam: Dry, Intact, Normal Color, Warm Assessment and Plan (1) Sepsis Status: Acute (2) Cellulitis of right leg without foot Status: Acute (3) Hyponatremia Status: Acute (4) Streptococcal septicemia Status: Acute (5) Alcohol abuse Status: Acute (6) Chronic venous insufficiency Status: Acute (7) Dyslipidemia Status: Acute (8) Homelessness Status: Acute (9) Umbilical hernia Status: Acute (10) Atrial fibrillation Status: Chronic (11) Liver cirrhosis, alcoholic Status: Chronic (12) Lymphedema of right lower extremity Status: Chronic (13) Prophylactic measure Status: Acute Attending/Attestation - Attestation I have personally seen and examined this patient.: Yes I have fully participated in the care of the patient.: Yes I have reviewed all pertinent clinical information, including history, physical exam and plan: Yes Notes (Text): Patient seen, examined and case discussed with medical office technology instructor. Patient reports he feels awful this morning. Patient is complaining about headache. Patient reports shortness of breathe improved little bit. patient reports he is able to to use the bathroom. Assessment/Plan 1) Sepsis Bactermia RLE Cellulitis * On admission: Febrile, tachycardiac, leukocytosis with left shift, lactate 2.5 -> 1.3 * Tmax: 99.9F * Gentamicin Sulfate 8-mg IVPB Q 8H (active since 05/22/17) * Zosyn 3.375 IV Q Q8H (active since 05/21/17) * Vancomycin 1gram IVPB Q12H (active since * Follow-up Vancomycin trough 15:30 * Tamiflu 75mg PO BID (active since 05/21/17) * Procalcitonin 3.93 * Blood Culture (05/20/17): Strep Agalactiae Group B X2 * Wound Culture (05/21/17): Strep Agalactiae Group B, Staphylococcus Aureus * Urine culture (05/20/17): no growth * Throat Culture (05/21/17): no beta group A isolated 2) RLE Cellulitis with Chronic Venous Stasis * Right LE weeping puncture wound on admission -->improved * F/U wound culture * Venous doppler reveals no DVT bilaterally but 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 * ASA 81 mg PO daily started * Hold 05/23 Aspirin secondary to downtrending H/H 3) Hyponatremia SIADH * 127 on admission * Serum osmolality: 281 * Urine osmolality * Urine Random Sodium * Fluid Restriction: 1200mL 4) Diarrhea * F/U stool studies-->pending * Will order for CT abdomen/Pelvis PO contrast and IV-->will monitor for ascites and check to see if patient has colitis 5) Anemia * Likely secondary to chronic disease * Baseline H/H: 01/25, on admission: 12/23.8 * Reticulocyte: 3.5 * Iron: 25 * TIBC: 266 * %saturation: 9 * Ferriti: 28.5 * Retic count:3.5 * Folate: 705 * B12: 7.3 * Will type and cross 2 units of PRBC * Administer 1 today once consent is obtained 6) Hx of Atrial Fibrillation * Not on any anticoagulation (Hx of varices and medication non-compliance) * EKG showed a-fib with RVR following * 05/21/17 Cardizem 10 mg IV stat administered; started on Cardizem 30 mg PO Q6 with holding parameters ordered * 05/22/17: heart rate controlled on started on Cardizem 30 mg PO Q6H-->will switch to Cardizem CD 120mg PO daily tomorrow 7) Alcohol Decompensated Cirrhosis * MELD 20 on admission * Hepatitis panel negative 11/10/16 * AFP 2.3 11/10/16 * Ammonia 34 * Start Lactulose 20mg POqHS * Will order for CT abdomen/Pelvis PO contrast and IV-->will monitor for ascites and check to see if patient has colitis 8) Hx Alcohol Abuse * Alcohol Serum <10 * UDS negative * Patient is not in acute withdrawal 9) Prophylactic Measure * GI PPX: Protonix 40mg IVP daily * Contraindicated DVT PPx for history of varices, and downtrending hemoglobin * SCD c/i * Florastor 250mg PO BID Disposition: * Will order for CT Abdomen/Pelvis PO and IV contrast-->check for colitis and ascities * Will need to type and cross 2 units of PRBC and provide 1 unit of PRBC today for today * Patient has mild rales on exam will check CT Chest * Patient to start Lactulose given history of cirrhosis * Will order abdominal US to check quality of liver.
[2017-05-23] MEDS: Magnesium Sulfate 1 gm in D5W 1 GM/100 ML BAG IVPB SCH (08:15)
[2017-05-23] MEDS ORDERED: DiphenhydrAMINE 50 mg/ml Inj IVP PRN (09:25)
--- NOTE | 2017-05-23 09:53 | CT ---
PROCEDURE: CT Chest without contrast HISTORY: COMPARISON: None. TECHNIQUE: Contiguous axial images were obtained through the chest without intravenous contrast enhancement. Sagittal and coronal reconstructions were performed. Radiation dose (DLP): 444.23 mGy-cm. This CT exam was performed using one or more of the following dose reduction techniques: Automated exposure control, adjustment of the mA and/or kV according to patient size, and/or use of iterative reconstruction technique. FINDINGS: LUNGS: No infiltrate. MEDIASTINUM: Unremarkable thoracic aorta. No aneurysm. Cardiomegaly. Minimally dilated main pulmonary artery, to a diameter of approximately 3.3 cm. Possible correlation with pulmonary arterial hypertension. No lymphadenopathy. PLEURA: Trace right pleural effusion. No left pleural effusion. No pneumothorax. BONES: No fracture. No destructive lesion. UPPER ABDOMEN: Ascites. Possible hepatic cirrhosis. Retroperitoneal fluid about the pancreas raises possibility of pancreatitis. Please correlate with clinical and laboratory evaluation. Nonobstructing 7 mm left upper pole renal calculus. Hyperdense 1.8 cm exophytic left upper pole mass, likely hyperdense cysts. Correlate with ultrasound examination. OTHER FINDINGS: None. IMPRESSION: No infiltrate/ effusion. Cardiomegaly. Mildly dilated main pulmonary artery. Ascites. Hepatic cirrhosis. Nonobstructing left renal calculus. Possible pancreatitis. Please correlate. Hyperdense left upper pole exophytic renal mass, likely hyperdense cyst. Please correlate with ultrasound examination.
[2017-05-23] MEDS ORDERED: diltiaZEM 240 mg/24 Hours CD Cap PO SCH (10:00)
[2017-05-23] MEDS: diltiaZEM 120 mg/24 Hours CD Cap PO SCH (10:48)
[2017-05-23] MEDS: Saccharomyces Boulardi 250 mg Cap PO SCH ×2 (10:48→17:27)
[2017-05-23] MEDS: Fluticasone Nasal 50 mcg/Spray NAS SCH (10:49)
--- NOTE | 2017-05-23 10:52 | CARD ---
APPROVED REPORT EXAM: Two-dimensional and M-mode echocardiogram with Doppler and color Doppler. Other Information Quality : GoodRhythm : INDICATION Atrial Fibrillation SEPSIS 2D DIMENSIONS IVSd1.0 (0.7-1.1cm)LVDd5.1 (3.9-5.9cm) PWd1.1 (0.7-1.1cm)LVDs3.2 (2.5-4.0cm) FS (%) 36.9 %LVEF (%)66.5 (>50%) M-Mode DIMENSIONS Left Atrium (MM)4.38 (2.5-4.0cm)Aortic Root3.44 (2.2-3.7cm) Aortic Cusp Exc.2.21 (1.5-2.0cm) Aortic Valve AI P 1/2 [id number] Mitral Valve MV E [id number]/sE/A ratio0.0 TDI E/Lateral E'0.0E/Medial E'0.0 Tricuspid Valve TR Peak [id number] Peak [id number] <Conclusion> normal siZe lv,ra & rv. la is mildly dilated. normal lv wall motion,thickness,systolic function with lvef of 55-60%. lv diastolic dysfunction grade one. normal aortic,mitral,tv & pv. trace mr,ai,pi & mild tr with normal pulmonary systolic pressures of 34 mm of hg. no pericardial effusion. normal size aortic root.
[2017-05-23 11:24] LABS: NEUT # 5.4 K/uL (1.8-7.0)
[2017-05-23 11:25] LABS: EOS # 0.2 K/uL (0.0-0.7)
[2017-05-23] MEDS: Albuterol 0.083% Inhal Sol (2.5 mg/3 mL) UD INH SCH ×3 (13:12→19:02)
--- NOTE | 2017-05-23 13:28 | CP.PCM.CON ---
History of Present Illness - History of Present Illness History of Present Illness: General Surgery: Dr Motley Re: umbilical hernia History and chart review. 56M, homeless, with history of progressive liver cirrhosis 2/2 alcohol abuse. Pt S&E at bedside on 6T. Currently denies any pain. Admitted for evaluation of LE cellulitis. Pt states he has a history of alcohol abuse but has not drank for several years. History of ESLD. MELD ~20. Pt reports umbilical hernia has been present for ~ 2 years. Previous history of draining ascites through the umbilicus, with acute infection, but nothing recently. Hernia is non-tender and reducible. Pt reports he has not had a paracentesis for several years. Review of Systems - Review of Systems All systems: reviewed and no additional remarkable complaints except (as per hpi ) Past Patient History - Infectious Disease Hx of Infectious Diseases: None - Past Medical History & Family History Past Medical History?: Yes - Past Social History Smoking Status: Never Smoked - CARDIAC Hx Atrial Fibrillation: Yes Hx Cardia Arrhythmia: Yes Hx Congestive Heart Failure: No Hx Hypercholesterolemia: No Hx Hypertension: No (Pt denies) Hx Peripheral Edema: Yes - PULMONARY Hx Chronic Obstructive Pulmonary Disease (COPD): No Hx Pneumonia: Yes - NEUROLOGICAL Hx Seizures: (Pt denies) - HEENT Hx HEENT Problems: No - RENAL Hx Chronic Kidney Disease: No - ENDOCRINE/METABOLIC Hx Hypothyroidism: No - HEMATOLOGICAL/ONCOLOGICAL Hx Anemia: Yes Hx Human Immunodeficiency Virus (HIV): No (Pt denies) - INTEGUMENTARY Hx Cellulitis: Yes - MUSCULOSKELETAL/RHEUMATOLOGICAL Hx Arthritis: No Hx Fractures: Yes Hx Rheumatoid Arthritis: No - GASTROINTESTINAL Hx Gastrointestinal Disorders: Yes Other/Comment: umbilical hernia, Liver cirrhosis - GENITOURINARY/GYNECOLOGICAL Hx Sexually Transmitted Disorders: No (Pt denies) - PSYCHIATRIC Hx Substance Use: No - SURGICAL HISTORY Hx Surgeries: Yes Other/Comment: Surgery Rt arm - "artery" - ANESTHESIA Hx Anesthesia: Yes Hx Anesthesia Reactions: No Hx Malignant Hyperthermia: No Meds Allergies/Adverse Reactions: Allergies Allergy/AdvReac Type Severity Reaction Status Date / Time pollen extracts Allergy ITCHING Verified 05/20/17 18:05 - Medications Medications: Current Medications Acetaminophen (Tylenol 325mg Tab) 650 mg PO Q6 PRN PRN Reason: Temperature Albuterol Sulfate (Albuterol 0.083% Inhal Laura (2.5 Mg/3 Ml) Ud) 2.5 mg INH RQ6 PRN PRN Reason: Shortness of Breath Last Admin: 05/23/17 04:20 Dose: 2.5 mg Albuterol Sulfate (Albuterol 0.083% Inhal Laura (2.5 Mg/3 Ml) Ud) 2.5 mg INH RQ4 [facility] Last Admin: 05/23/17 13:12 Dose: 2.5 mg Diltiazem HCl (Cardizem Cd) 120 mg PO DAILY [facility] Last Admin: 05/23/17 10:48 Dose: 120 mg Diphenhydramine HCl (Benadryl) 25 mg IVP PRN PRN PRN Reason: Allergy symptoms Fluticasone Propionate (Flonase) 1 spr STEPHEN DAILY [facility] Last Admin: 05/23/17 10:49 Dose: 1 spr Furosemide (Lasix) 40 mg IVP DAILY [facility] Last Admin: 05/23/17 10:50 Dose: 40 mg Guaifenesin/Dextromethorphan (Robitussin Dm) 5 ml PO Q4H PRN PRN Reason: Cough Sodium Chloride (Sodium Chloride 0.9%) 1,000 mls @ 100 mls/hr IV .Q10H [facility] Last Admin: 05/23/17 04:05 Dose: 100 mls/hr Piperacillin Sod/Tazobactam Sod (Zosyn 3.375 Gm Iv Premix) 3.375 gm in 50 mls @ 100 mls/hr IVPB Q8H [facility] Last Admin: 05/23/17 10:50 Dose: 100 mls/hr Vancomycin/Sodium Chloride (Vancomycin 1 Gm/Ns 200 Ml) 1 gm in 200 mls @ 133.333 mls/hr IVPB Q12H [facility] Stop: 05/27/17 16:01 Last Admin: 05/23/17 04:35 Dose: 133.333 mls/hr Gentamicin Sulfate 80 mg/ (Sodium Chloride) 102 mls @ 100 mls/hr IVPB Q8H [facility] Last Admin: 05/23/17 07:06 Dose: 100 mls/hr Lorazepam (Ativan) 1 mg IVP Q6H PRN PRN Reason: Symptoms of alcohol withdrawl Ondansetron HCl (Zofran Inj) 4 mg IVP Q6 PRN PRN Reason: Nausea/Vomiting Oseltamivir Phosphate (Tamiflu Cap) 75 mg PO BID [facility] Stop: 05/26/17 10:01 Last Admin: 05/23/17 10:49 Dose: 75 mg Pantoprazole Sodium (Protonix Inj) 40 mg IVP DAILY [facility] Last Admin: 05/23/17 10:49 Dose: 40 mg Saccharomyces Boulardii (Florastor) 250 mg PO BID [facility] Last Admin: 05/23/17 10:48 Dose: 250 mg Physical Exam - Constitutional Appears: Non-toxic, No Acute Distress - Eye Exam Eye Exam: Normal appearance - ENT Exam ENT Exam: Normal Exam - Respiratory Exam Respiratory Exam: absent: Respiratory Distress - Cardiovascular Exam Cardiovascular Exam: REGULAR RHYTHM. absent: Tachycardia - GI/Abdominal Exam GI & Abdominal Exam: Distended, Hernia (umbilical, reducible, without bowel content also right inguinal with fluid extending into scrotal sac), Hyperactive Bowel Sounds, Soft. absent: Firm, Guarding, Rebound, Rigid, Tenderness Additional comments: + fluid wave - Extremities Exam Extremities exam: Positive for: pedal edema. Negative for: normal inspection Additional comments: diffuse LE cellulitis - Neurological Exam Neurological exam: Alert, Oriented x3 - Psychiatric Exam Psychiatric exam: Normal Affect, Normal Mood Results - Vital Signs Recent Vital Signs: Last Vital Signs Temp 98.2 F 05/23/17 08:23 Pulse 90 05/23/17 08:23 Resp 20 05/23/17 08:23 BP 146/89 05/23/17 10:50 Pulse Ox 97 05/23/17 08:23 - Labs Result Diagrams: 05/23/17 06:43 05/23/17 06:43 Labs: Laboratory Results - last 24 hr 05/23/17 05/23/17 05/23/17 06:43 06:43 06:43 WBC 10.6 RBC 2.51 L Hgb 7.7 L Hct 22.3 L MCV 88.7 MCH 30.6 MCHC 34.4 RDW 22.1 H Plt Count 164 MPV 8.8 Neut % (Auto) 51.0 Lymph % (Auto) 38.0 [place] % (Auto) 9.0 Eos % (Auto) 2.0 Baso % (Auto) 0.0 Neut # 5.4 Lymph # 4.0 [place] # 1.0 H Eos # 0.2 Baso # 0.0 Sodium 127 L Potassium 3.6 Chloride 102 Carbon Dioxide 20 L Anion Gap 9 L BUN 15 Creatinine 1.0 Est GFR ( Amer) > 60 Est GFR (Non-Af Amer) > 60 Random Glucose 112 H Calcium 7.2 L Phosphorus 3.1 Magnesium 1.5 L Total Bilirubin 2.5 H AST 72 H ALT 31 Alkaline Phosphatase 167 H Total Protein 7.2 Albumin 2.4 L Globulin 4.8 H Albumin/Globulin Ratio 0.5 L Vancomycin Trough 7.7 Blood Type Antibody Screen 05/23/17 12:06 WBC RBC Hgb Hct MCV MCH MCHC RDW Plt Count MPV Neut % (Auto) Lymph % (Auto) [place] % (Auto) Eos % (Auto) Baso % (Auto) Neut # Lymph # [place] # Eos # Baso # Sodium Potassium Chloride Carbon Dioxide Anion Gap BUN Creatinine Est GFR ( Amer) Est GFR (Non-Af Amer) Random Glucose Calcium Phosphorus Magnesium Total Bilirubin AST ALT Alkaline Phosphatase Total Protein Albumin Globulin Albumin/Globulin Ratio Vancomycin Trough Blood Type O POSITIVE Antibody Screen Negative Assessment & Plan - Assessment and Plan (Free Text) Assessment: 56 cirrhotic male with umbilical & inguinal hernia Plan: pt extremely poor surgical candidate degree of ascites puts pt at high risk for recurrence, mesh infection, SBP, and ascites leak if underwent repair pt needs definitive mgmt of ascites/liver i.e. transplant vs TIPS before considering repair no surgical intervention planned would recommend considering paracentesis and albumin/lactulose d/w Dr Tiesha Blackburn, PGY3
--- NOTE | 2017-05-23 15:51 | US ---
HISTORY: hx of liver cirrrhosis COMPARISON: None. TECHNIQUE: Sonographic evaluation of the abdomen. FINDINGS: LIVER: Measures 14.6 cm. Diffusely increased echogenicity of the liver parenchyma. Nodular contour consistent with hepatic cirrhosis. No mass. No biliary dilatation. GALLBLADDER: No evidence of cholelithiasis. Diffusely thickened gallbladder wall, nonspecific. Negative sonographic Block sign. COMMON BILE DUCT: Measures 5 mm. No stones. No dilatation. PANCREAS: Unremarkable as visualized. No mass. No ductal dilatation. RIGHT KIDNEY: Measures 13.0cm. Normal cortical thickness and echogenicity. Small cortical cysts noted. Mid pole, 0.9 x 1.3 x 1.4 cm. Lower pole, 10 mm. No hydronephrosis. LEFT KIDNEY: Measures 11.8cm. Normal cortical thickness and echogenicity. Small cortical cysts mid left kidney: 2.3 x 2.3 x 2.7 cm, 1.8 x 1.5 x 1.7 cm and 1.4 x 1.5 x 1.6 cm. Nonobstructing 8 mm calculus in the upper pole left kidney. No hydronephrosis. SPLEEN: Normal in size and contour. No mass. AORTA: No aneurysmal dilatation. IVC: Unremarkable. OTHER FINDINGS: None. IMPRESSION: Hepatic cirrhosis. Ascites. Thickened gallbladder wall, nonspecific, possibly related to hepatic cirrhosis. Bilateral small renal cysts. Nonobstructing 8 mm left renal calculus.
[2017-05-23 19:53] LABS: TROPONIN I 0.014 ng/mL (0.00-0.120)
[2017-05-24] MEDS: Sodium Chloride 0.9% 1,000 ML IV SCH (00:55)
[2017-05-24] MEDS: Albuterol 0.083% Inhal Sol (2.5 mg/3 mL) UD INH SCH ×5 (01:31→20:18)
[2017-05-24] MEDS: Piperacill/Tazo 3.375gm in Dex 3.375 GM/50 ML BAG IVPB SCH ×3 (03:00→20:26)
[2017-05-24] MEDS: Vancomycin 1 gm/NS 200 ml 1 GM/200 ML BAG IVPB SCH (04:23)
[2017-05-24 07:10] LABS: INR 2.1; PROTHROMBIN TIME 24.6 SECONDS (9.7-12.2)
[2017-05-24 07:32] LABS: HEMOGLOBIN 8.5 g/dL (12.0-18.0)
[2017-05-24 07:54] LABS: ALB/GLOB RATIO 0.5 (1.0-2.1); ALBUMIN 2.3 g/dL (3.5-5.0); ALT/SGPT 31 U/L (21-72); AST/SGOT 70 U/L (17-59); BLOOD UREA NITROGEN 11 mg/dL (9-20); CALCIUM 6.9 mg/dl (8.6-10.4); GFR AFRICAN-AMERICAN > 60; GFR NON-AFRICAN AMERICAN > 60; MAGNESIUM 1.3 mg/dL (1.6-2.3)
[2017-05-24 07:55] LABS: MEAN CELL VOLUME 88.2 fL (80.0-94.0); MEAN CORPUSCULAR HEMOGLOBIN 29.9 pg (27.0-31.0); MEAN CORPUSCULAR HGB CONC 33.9 g/dL (33.0-37.0); MEAN PLATELET VOLUME 8.6 fL (7.2-11.7); RBC 2.85 Mil/uL (4.40-5.90); RED CELL DISTRIBUTION WIDTH 21.1 % (11.5-14.5); WHITE BLOOD COUNT 8.9 K/uL (4.8-10.8)
[2017-05-24] MEDS ORDERED: Iohexol 240 (50 ml) PO ONE (09:15)
[2017-05-24] MEDS: Fluticasone Nasal 50 mcg/Spray NAS SCH (09:53)
[2017-05-24] MEDS: Saccharomyces Boulardi 250 mg Cap PO SCH ×2 (09:53→17:36)
[2017-05-24] MEDS: diltiaZEM 120 mg/24 Hours CD Cap PO SCH (09:53)
--- NOTE | 2017-05-24 10:16 | CP.PCM.PN ---
Subjective - Date & Time of Evaluation Date of Evaluation: 05/24/17 Time of Evaluation: 08:13 - Subjective Subjective: Dr. Serafin Herbert, Jaydon Concepcion Director [id number] Patient was seen and examined at bedside. Per nursing no acute events occurred overnight. The patient reports feeling bad today. He states that he has some back pain and green phlegm production. The patient is tolerating diet and had one bowel movement yesterday. The patient denies any chest pain, abdominal pain , chills, syncopal episodes, headaches, nausea, vomiting, numbness or tingling in the hands or feet, or any other complaints. Objective - Vital Signs/Intake and Output Vital Signs (last 24 hours): Temp Pulse Resp BP Pulse Ox 97.1 F L 94 H 20 126/72 97 05/24/17 09:23 05/24/17 09:23 05/24/17 09:23 05/24/17 09:54 05/24/17 09:23 Intake and Output: 05/24/17 05/24/17 06:59 18:59 Intake Total 500 Output Total 375 Balance 125 - Medications Medications: Current Medications Acetaminophen (Tylenol 325mg Tab) 650 mg PO Q6 PRN PRN Reason: Temperature Albuterol Sulfate (Albuterol 0.083% Inhal Laura (2.5 Mg/3 Ml) Ud) 2.5 mg INH RQ6 PRN PRN Reason: Shortness of Breath Last Admin: 05/23/17 04:20 Dose: 2.5 mg Albuterol Sulfate (Albuterol 0.083% Inhal Laura (2.5 Mg/3 Ml) Ud) 2.5 mg INH RQ4 [facility] Last Admin: 05/24/17 07:24 Dose: Not Given Diltiazem HCl (Cardizem Cd) 120 mg PO DAILY [facility] Last Admin: 05/24/17 09:53 Dose: 120 mg Diphenhydramine HCl (Benadryl) 25 mg IVP PRN PRN PRN Reason: Allergy symptoms Fluticasone Propionate (Flonase) 1 spr STEPHEN DAILY [facility] Last Admin: 05/24/17 09:53 Dose: 1 spr Furosemide (Lasix) 40 mg IVP DAILY [facility] Last Admin: 05/24/17 09:54 Dose: 40 mg Guaifenesin/Dextromethorphan (Robitussin Dm) 5 ml PO Q4H PRN PRN Reason: Cough Sodium Chloride (Sodium Chloride 0.9%) 1,000 mls @ 100 mls/hr IV .Q10H [facility] Last Admin: 05/24/17 00:55 Dose: Not Given Piperacillin Sod/Tazobactam Sod (Zosyn 3.375 Gm Iv Premix) 3.375 gm in 50 mls @ 100 mls/hr IVPB Q8H [facility] Last Admin: 05/24/17 03:00 Dose: 100 mls/hr Vancomycin/Sodium Chloride (Vancomycin 1 Gm/Ns 200 Ml) 1 gm in 200 mls @ 133.333 mls/hr IVPB Q12H [facility] Stop: 05/27/17 16:01 Last Admin: 05/24/17 04:23 Dose: 133.333 mls/hr Gentamicin Sulfate 80 mg/ (Sodium Chloride) 102 mls @ 100 mls/hr IVPB Q8H [facility] Last Admin: 05/24/17 06:57 Dose: 100 mls/hr Lorazepam (Ativan) 1 mg IVP Q6H PRN PRN Reason: Symptoms of alcohol withdrawl Ondansetron HCl (Zofran Inj) 4 mg IVP Q6 PRN PRN Reason: Nausea/Vomiting Oseltamivir Phosphate (Tamiflu Cap) 75 mg PO BID [facility] Stop: 05/26/17 10:01 Last Admin: 05/24/17 09:53 Dose: 75 mg Pantoprazole Sodium (Protonix Inj) 40 mg IVP DAILY [facility] Last Admin: 05/24/17 09:55 Dose: 40 mg Saccharomyces Boulardii (Florastor) 250 mg PO BID [facility] Last Admin: 05/24/17 09:53 Dose: 250 mg - Labs Labs: 05/24/17 06:58 05/24/17 06:58 PT 24.6 SECONDS (9.7-12.2) H 05/24/17 06:58 INR 2.1 05/24/17 06:58 APTT 39 SECONDS (21-34) H 05/20/17 19:08 - Head Exam Head Exam: ATRAUMATIC, NORMAL INSPECTION, NORMOCEPHALIC - Eye Exam Eye Exam: EOMI, Normal appearance, PERRL. absent: Periorbital tenderness Pupil Exam: NORMAL ACCOMODATION, PERRL. absent: Irregular, Unequal - ENT Exam ENT Exam: Mucous Membranes Moist, Normal Oropharynx - Neck Exam Neck Exam: Full ROM, Normal Inspection. absent: Lymphadenopathy, Thyromegaly - Respiratory Exam Respiratory Exam: Clear to Ausculation Bilateral, NORMAL BREATHING PATTERN. absent: Chest Wall Tenderness, Prolonged Expiratory Phase, Respiratory Distress - Cardiovascular Exam Cardiovascular Exam: REGULAR RHYTHM, +S1, +S2. absent: Gallop, Rubs - GI/Abdominal Exam GI & Abdominal Exam: Soft, Normal Bowel Sounds. absent: Rigid, Hyperactive Bowel Sounds - Extremities Exam Additional comments: right leg shows chronic venous insufficiency. Warm to toouch - Back Exam Back Exam: NORMAL INSPECTION. absent: Full ROM, rash noted - Neurological Exam Neurological Exam: Alert, Awake, CN II-XII Intact, Oriented x3 - Psychiatric Exam Psychiatric exam: Normal Affect, Normal Mood - Skin Skin Exam: Dry, Intact Additional comments: venous changes noted Assessment and Plan - Assessment and Plan (Free Text) Assessment: 56 year old male with a past medical history of liver cirrhosis, atrial fibrillation, varices who was admitted to [facility] for sepsis 2/2 to uti and cellulitis. Plan: Sepsis Bactermia RLE Cellulitis * On admission: Febrile, tachycardiac, leukocytosis with left shift, lactate 2.5 -> 1.3 * Tmax: 99.9F * Continue Gentamicin Sulfate 8-mg IVPB Q 8H (active since 05/22/17) * Continue Zosyn 3.375 IV Q Q8H (active since 05/21/17) * Vancomycin changed to 4gram IVPB Q24H (active since * Follow-up Vancomycin trough 15:30 * Continue Tamiflu 75mg PO BID (active since 05/21/17) * Procalcitonin 3.93 * Blood Culture (05/20/17): Strep Agalactiae Group B X2 * Wound Culture (05/21/17): Strep Agalactiae Group B, Staphylococcus Aureus * Urine culture (05/20/17): no growth * Throat Culture (05/21/17): no beta group A isolatedm, negative RLE Cellulitis with Chronic Venous Stasis * Right LE weeping puncture wound on admission -->improved * F/U wound culture * Venous doppler reveals no DVT bilaterally but 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 * ASA 81 mg PO daily started * Continue to Hold Aspirin(started 05/23) secondary to downtrending H/H Hyponatremia SIADH * 128 today. * Serum osmolality: 281 * Urine osmolality:722 * Urine Random Sodium:7 Elevated T-bili -3.2 Today -Most likely secondary to alcohol abuse. -Will continue to monitor. Diarrhea * Improvement from yesterday. Will continue to monitor. * CT abdomen/Pelvis PO contrast shows nonobstructing left renal calculus, umbilical hernia, and cirrhotic liver Hypomagnesmia -Repleted. Will continue to monitor with serial CMP's. Anemia * Likely secondary to chronic disease * Baseline H/H: 01/25, on admission: 12/23.8 * Reticulocyte: 3.5 * Iron: 25 * TIBC: 266 * %saturation: 9 * Ferriti: 28.5 * Retic count:3.5 * Folate: 705 * B12: 7.3 * type and cross 2 units of PRBC * Administer 1 today once consent is obtained Hx of Atrial Fibrillation * Not on any anticoagulation (Hx of varices and medication non-compliance) * EKG showed a-fib with RVR following * Continue on Cardizem 30 mg PO Q6 with holding parameters. * 05/22/17: heart rate controlled on started on Cardizem 30 mg PO Q6H-->will switch to Cardizem CD 120mg PO daily tomorrow Alcohol Decompensated Cirrhosis * MELD 20 on admission * Hepatitis panel negative 11/10/16 * AFP 2.3 11/10/16 * Ammonia 34 Continue Lactulose 20mg POqHS * CT abdomen/Pelvis PO contrast shows nonobstructing left renal calculus, umbilical hernia, and cirrhotic liver Hx Alcohol Abuse * Alcohol Serum <10 * UDS negative * Patient is not in acute withdrawal Prophylactic Measure * GI PPX: Protonix 40mg IVP daily * Contraindicated DVT PPx for history of varices, and downtrending hemoglobin * SCD c/i * Florastor 250mg PO BID Disposition: * Will follow up with Dr. Barbosa for rec's and Palliative consult. *
[2017-05-24 10:18] LABS: EOS # 0.2 K/uL (0.0-0.7); LYMPH # 2.8 K/uL (1.0-4.3); MONO # 0.7 K/uL (0.0-0.8); NEUT # 5.2 K/uL (1.8-7.0)
[2017-05-24] MEDS: Magnesium Sulfate 1 gm in D5W 1 GM/100 ML BAG IVPB SCH ×2 (12:49→14:26)
[2017-05-24] MEDS ORDERED: Iohexol 350mg/ml 100 ML ONE (13:45)
--- NOTE | 2017-05-24 15:18 | CP.PCM.CON ---
History of Present Illness - History of Present Illness History of Present Illness: ASked today to see pt for cirrhosis. ADmitted for LE cellulits. Alcohol abuse, sepsis. Had diarrhea- less Chronic anemia Review of Systems - Constitutional Constitutional: Fatigue, Weakness - EENT Nose/Mouth/Throat: absent: Throat Swelling - Cardiovascular Cardiovascular: Leg Edema. absent: Chest Pain, Palpitations - Respiratory Respiratory: absent: Hemoptysis, Wheezing - Gastrointestinal Gastrointestinal: Diarrhea. absent: Abdominal Pain, Coffee Ground Emesis, Constipation, Hematemesis, Hematochezia, Melena, Vomiting - Genitourinary Genitourinary: absent: Hematuria - Musculoskeletal Musculoskeletal: absent: Muscle Cramps - Integumentary Integumentary: absent: Pruritus - Neurological Neurological: absent: Convulsions - Psychiatric Psychiatric: absent: Hallucinations Past Patient History - Infectious Disease Hx of Infectious Diseases: None - Past Medical History & Family History Past Medical History?: Yes - Past Social History Smoking Status: Never Smoked - CARDIAC Hx Atrial Fibrillation: Yes Hx Cardia Arrhythmia: Yes Hx Congestive Heart Failure: No Hx Hypercholesterolemia: No Hx Hypertension: No (Pt denies) Hx Peripheral Edema: Yes - PULMONARY Hx Chronic Obstructive Pulmonary Disease (COPD): No Hx Pneumonia: Yes - NEUROLOGICAL Hx Seizures: (Pt denies) - HEENT Hx HEENT Problems: No - RENAL Hx Chronic Kidney Disease: No - ENDOCRINE/METABOLIC Hx Hypothyroidism: No - HEMATOLOGICAL/ONCOLOGICAL Hx Anemia: Yes Hx Human Immunodeficiency Virus (HIV): No (Pt denies) - INTEGUMENTARY Hx Cellulitis: Yes - MUSCULOSKELETAL/RHEUMATOLOGICAL Hx Arthritis: No Hx Fractures: Yes Hx Rheumatoid Arthritis: No - GASTROINTESTINAL Hx Gastrointestinal Disorders: Yes Other/Comment: umbilical hernia, Liver cirrhosis - GENITOURINARY/GYNECOLOGICAL Hx Sexually Transmitted Disorders: No (Pt denies) - PSYCHIATRIC Hx Substance Use: No - SURGICAL HISTORY Hx Surgeries: Yes Other/Comment: Surgery Rt arm - "artery" - ANESTHESIA Hx Anesthesia: Yes Hx Anesthesia Reactions: No Hx Malignant Hyperthermia: No Meds Allergies/Adverse Reactions: Allergies Allergy/AdvReac Type Severity Reaction Status Date / Time pollen extracts Allergy ITCHING Verified 05/20/17 18:05 - Medications Medications: Current Medications Acetaminophen (Tylenol 325mg Tab) 650 mg PO Q6 PRN PRN Reason: Temperature Albuterol Sulfate (Albuterol 0.083% Inhal Laura (2.5 Mg/3 Ml) Ud) 2.5 mg INH RQ6 PRN PRN Reason: Shortness of Breath Last Admin: 05/23/17 04:20 Dose: 2.5 mg Albuterol Sulfate (Albuterol 0.083% Inhal Laura (2.5 Mg/3 Ml) Ud) 2.5 mg INH RQ4 [facility] Last Admin: 05/24/17 12:05 Dose: Not Given Diltiazem HCl (Cardizem Cd) 120 mg PO DAILY [facility] Last Admin: 05/24/17 09:53 Dose: 120 mg Diphenhydramine HCl (Benadryl) 25 mg IVP PRN PRN PRN Reason: Allergy symptoms Ferrous Sulfate (Feosol) 325 mg PO DAILY [facility] Last Admin: 05/24/17 12:49 Dose: 325 mg Fluticasone Propionate (Flonase) 1 spr STEPHEN DAILY [facility] Last Admin: 05/24/17 09:53 Dose: 1 spr Furosemide (Lasix) 40 mg IVP DAILY [facility] Last Admin: 05/24/17 09:54 Dose: 40 mg Guaifenesin/Dextromethorphan (Robitussin Dm) 5 ml PO Q4H PRN PRN Reason: Cough Piperacillin Sod/Tazobactam Sod (Zosyn 3.375 Gm Iv Premix) 3.375 gm in 50 mls @ 100 mls/hr IVPB Q8H [facility] Last Admin: 05/24/17 10:15 Dose: 100 mls/hr Vancomycin HCl 2 gm/ Sodium (Chloride) 500 mls @ 166.7 mls/hr IVPB Q12H [facility] Lorazepam (Ativan) 1 mg IVP Q6H PRN PRN Reason: Symptoms of alcohol withdrawl Ondansetron HCl (Zofran Inj) 4 mg IVP Q6 PRN PRN Reason: Nausea/Vomiting Oseltamivir Phosphate (Tamiflu Cap) 75 mg PO BID [facility] Stop: 05/26/17 10:01 Last Admin: 05/24/17 09:53 Dose: 75 mg Pantoprazole Sodium (Protonix Inj) 40 mg IVP DAILY [facility] Last Admin: 05/24/17 09:55 Dose: 40 mg Saccharomyces Boulardii (Florastor) 250 mg PO BID [facility] Last Admin: 05/24/17 09:53 Dose: 250 mg Physical Exam - Constitutional Appears: Non-toxic - Respiratory Exam Respiratory Exam: Clear to Auscultation Bilateral - Cardiovascular Exam Cardiovascular Exam: RRR - GI/Abdominal Exam GI & Abdominal Exam: Distended, Normal Bowel Sounds, Soft. absent: Guarding, Mass, Rebound Additional comments: + ascites - Extremities Exam Extremities exam: Positive for: pedal edema - Neurological Exam Neurological exam: Alert Results - Vital Signs Recent Vital Signs: Last Vital Signs Temp 97.1 F L 05/24/17 09:23 Pulse 94 H 05/24/17 09:23 Resp 20 05/24/17 09:23 BP 126/72 05/24/17 09:54 Pulse Ox 97 05/24/17 09:23 - Labs Result Diagrams: 05/24/17 06:58 05/24/17 06:58 Labs: Laboratory Results - last 24 hr 05/21/17 05/23/17 05/23/17 14:41 12:06 15:23 WBC RBC Hgb Hct MCV MCH MCHC RDW Plt Count MPV Neut % (Auto) Lymph % (Auto) [place]imble % (Auto) Eos % (Auto) Baso % (Auto) Neut # Lymph # Trimble # Eos # Baso # Differential Comment PT INR Sodium Potassium Chloride Carbon Dioxide Anion Gap BUN Creatinine Est GFR ( Amer) Est GFR (Non-Af Amer) Random Glucose Calcium Phosphorus Magnesium Total Bilirubin AST ALT Alkaline Phosphatase Total Creatine Kinase CK-MB (Mass) Troponin I Total Protein Albumin Globulin Albumin/Globulin Ratio Gentamicin Peak Gentamicin Trough 1.4 H Mycoplasma pneumon IgG 1.55 H Mycoplasma pneumon IgM 572 Blood Type O POSITIVE Antibody Screen Negative 05/23/17 05/23/17 05/24/17 19:24 22:07 06:58 WBC 8.9 RBC 2.85 L Hgb 8.5 L Hct 25.2 L MCV 88.2 MCH 29.9 MCHC 33.9 RDW 21.1 H Plt Count 172 MPV 8.6 Neut % (Auto) 50.0 Lymph % (Auto) 31.0 [place]ble % (Auto) 8.0 Eos % (Auto) 3.0 Baso % (Auto) 0.0 Neut # 5.2 Lymph # 2.8 Trimble # 0.7 Eos # 0.2 Baso # 0.0 Differential Comment PT INR Sodium Potassium Chloride Carbon Dioxide Anion Gap BUN Creatinine Est GFR ( Amer) Est GFR (Non-Af Amer) Random Glucose Calcium Phosphorus Magnesium Total Bilirubin AST ALT Alkaline Phosphatase Total Creatine Kinase 411 H CK-MB (Mass) 2.00 Troponin I 0.0140 Total Protein Albumin Globulin Albumin/Globulin Ratio Gentamicin Peak 2.3 L Gentamicin Trough Mycoplasma pneumon IgG Mycoplasma pneumon IgM Blood Type Antibody Screen 05/24/17 05/24/17 06:58 06:58 WBC RBC Hgb Hct MCV MCH MCHC RDW Plt Count MPV Neut % (Auto) Lymph % (Auto) Trimble % (Auto) Eos % (Auto) Baso % (Auto) Neut # Lymph # Trimble # Eos # Baso # Differential Comment PT 24.6 H INR 2.1 Sodium 128 L Potassium 3.8 Chloride 103 Carbon Dioxide 23 Anion Gap 6 L BUN 11 Creatinine 0.8 Est GFR ( Amer) > 60 Est GFR (Non-Af Amer) > 60 Random Glucose 102 Calcium 6.9 L Phosphorus 3.1 Magnesium 1.3 L Total Bilirubin 3.2 H AST 70 H ALT 31 Alkaline Phosphatase 171 H Total Creatine Kinase CK-MB (Mass) Troponin I Total Protein 7.0 Albumin 2.3 L Globulin 4.7 H Albumin/Globulin Ratio 0.5 L Gentamicin Peak Gentamicin Trough Mycoplasma pneumon IgG Mycoplasma pneumon IgM Blood Type Antibody Screen Assessment & Plan (1) Cellulitis of right leg without foot Status: Acute (2) Hyponatremia Status: Acute (3) Sepsis Status: Acute (4) Alcohol abuse Status: Acute (5) Anemia Assessment and Plan: chronic Status: Chronic (6) Atrial fibrillation Status: Chronic (7) Liver cirrhosis, alcoholic Assessment and Plan: Cirrhosis. MELD score elevated. LFTS are mild. Rec- referral to [facility] as outpt for evakuation. Stop alcohol Status: Chronic (8) Ascites Assessment and Plan: Check weights Diuretics follow lytes. Status: Acute
[2017-05-24] MEDS ORDERED: Vancomycin 2 GM in Sodium Chloride 0.9% 500 ML IVPB SCH (16:30)
--- NOTE | 2017-05-24 17:55 | CP.PCM.PN ---
Subjective - Date & Time of Evaluation Date of Evaluation: 05/24/17 Time of Evaluation: 03:25 - Subjective Subjective: dictated Objective - Vital Signs/Intake and Output Vital Signs (last 24 hours): Temp Pulse Resp BP Pulse Ox 97.8 F 86 20 129/77 97 05/24/17 15:00 05/24/17 15:35 05/24/17 15:00 05/24/17 15:00 05/24/17 15:00 Intake and Output: 05/24/17 05/24/17 06:59 18:59 Intake Total 500 Output Total 375 Balance 125 - Medications Medications: Current Medications Acetaminophen (Tylenol 325mg Tab) 650 mg PO Q6 PRN PRN Reason: Temperature Albuterol Sulfate (Albuterol 0.083% Inhal Laura (2.5 Mg/3 Ml) Ud) 2.5 mg INH RQ6 PRN PRN Reason: Shortness of Breath Last Admin: 05/23/17 04:20 Dose: 2.5 mg Albuterol Sulfate (Albuterol 0.083% Inhal Laura (2.5 Mg/3 Ml) Ud) 2.5 mg INH RQ4 [facility] Last Admin: 05/24/17 17:15 Dose: Not Given Aspirin (Ecotrin) 81 mg PO DAILY [facility] Diltiazem HCl (Cardizem Cd) 120 mg PO DAILY [facility] Last Admin: 05/24/17 09:53 Dose: 120 mg Diphenhydramine HCl (Benadryl) 25 mg IVP PRN PRN PRN Reason: Allergy symptoms Ferrous Sulfate (Feosol) 325 mg PO DAILY [facility] Last Admin: 05/24/17 12:49 Dose: 325 mg Fluticasone Propionate (Flonase) 1 spr STEPHEN DAILY [facility] Last Admin: 05/24/17 09:53 Dose: 1 spr Furosemide (Lasix) 40 mg IVP DAILY [facility] Last Admin: 05/24/17 09:54 Dose: 40 mg Guaifenesin/Dextromethorphan (Robitussin Dm) 5 ml PO Q4H PRN PRN Reason: Cough Piperacillin Sod/Tazobactam Sod (Zosyn 3.375 Gm Iv Premix) 3.375 gm in 50 mls @ 100 mls/hr IVPB Q8H [facility] Last Admin: 05/24/17 10:15 Dose: 100 mls/hr Vancomycin HCl 2 gm/ Sodium (Chloride) 500 mls @ 166.7 mls/hr IVPB Q12H [facility] Stop: 05/24/17 18:00 Last Admin: 05/24/17 17:40 Dose: 166.7 mls/hr Vancomycin HCl 2 gm/ Dextrose/ (Sodium Chloride) 500 mls @ 166.7 mls/hr IVPB Q12H [facility] Lactic Acid (Lac-Hydrin 12% Lotion (225 G)) 0 gm EXT DAILY [facility] Lorazepam (Ativan) 1 mg IVP Q6H PRN PRN Reason: Symptoms of alcohol withdrawl Ondansetron HCl (Zofran Inj) 4 mg IVP Q6 PRN PRN Reason: Nausea/Vomiting Oseltamivir Phosphate (Tamiflu Cap) 75 mg PO BID [facility] Stop: 05/26/17 10:01 Last Admin: 05/24/17 09:53 Dose: 75 mg Pantoprazole Sodium (Protonix Inj) 40 mg IVP DAILY [facility] Last Admin: 05/24/17 09:55 Dose: 40 mg Saccharomyces Boulardii (Florastor) 250 mg PO BID [facility] Last Admin: 05/24/17 17:36 Dose: 250 mg - Labs Labs: 05/24/17 06:58 05/24/17 06:58 PT 24.6 SECONDS (9.7-12.2) H 05/24/17 06:58 INR 2.1 05/24/17 06:58 APTT 39 SECONDS (21-34) H 05/20/17 19:08 Assessment and Plan (1) Streptococcal septicemia Status: Acute (2) Cellulitis of right leg without foot Status: Acute
--- NOTE | 2017-05-24 17:56 | CT ---
PROCEDURE: CT Abdomen and Pelvis with contrast HISTORY: ascites. colitis, umbilical hernia COMPARISON: None. TECHNIQUE: Contrast dose: 100 cc Omnipaque 350 Radiation dose: Total exam DLP = 1324.27 mGy-cm. This CT exam was performed using one or more of the following dose reduction techniques: Automated exposure control, adjustment of the mA and/or kV according to patient size, and/or use of iterative reconstruction technique. FINDINGS: LOWER THORAX: Unremarkable. LIVER: Cirrhotic appearing liver. Patent portal vein. GALLBLADDER AND BILE DUCTS: Unremarkable. PANCREAS: Unremarkable. No gross lesion or ductal dilatation. SPLEEN: Unremarkable. ADRENALS: Unremarkable. No mass. KIDNEYS AND URETERS: Nonobstructing calculus upper pole left kidney. Incidental finding(s): Bilateral simple renal cysts. Non larger than 1.5 cm. VASCULATURE: Unremarkable. No aortic aneurysm. BOWEL: Enteritis without mechanical obstruction. No evidence of colitis. APPENDIX: Normal appendix. PERITONEUM: Moderate volume abdominal and pelvic ascites. Unilateral, right hydrocele. LYMPH NODES: Unremarkable. No enlarged lymph nodes. BLADDER: Unremarkable. REPRODUCTIVE: Fluid tracks along the inguinal canal into the right scrotal sac. BONES: No acute fracture. OTHER FINDINGS: Large umbilical hernia containing primarily fat. There is a component of omentum. There is no evidence of associated small bowel obstruction or incarceration. Fluid identified within the hernia. IMPRESSION: Cirrhotic liver are without focal hepatic mass. Ascites and anasarca. Nonobstructing left renal calculus. Umbilical hernia containing fluid and omentum without bowel. Additional benign and/or incidental findings described above.
[2017-05-24] MEDS: Ammonium Lactate 12% Lotion (225 g) EXT SCH (20:10)
--- NOTE | 2017-05-25 00:03 | PN ---
DATE: SUBJECTIVE: Patient is feeling a little better. He is asking me when they are doing surgery on his abdomen, which I do not know. He does have umbilical hernia, which has been persistently there. He is alcohol abusive. Admitted here as his blood cultures have revealed Streptococcus group B and he has Staphylococcus aureus MRSA on the wound. The right leg remains with edema, swelling, and increased warmth and stasis dermatitis. Left leg is not with edema but has stasis dermatitis. He was seen by GI. PHYSICAL EXAMINATION: VITAL SIGNS: Temperature is 97.8, pulse 83, blood pressure 129/77, respirations 20. HEENT: Head is atraumatic, normocephalic. NECK: Supple. LUNGS: Have decreased breath sounds bilaterally. HEART: S1, S2 is regular. ABDOMEN: Remains distended with ascites and umbilical hernia. EXTREMITIES: Bilateral edema, right leg is double the size of the left leg with warmth and tenderness. He has staph and strep on it and he has strep septicemia which is most likely due to the leg wounds, and at this time Dr. Reaves has adjusted the vancomycin to 2 g q. 12. I would like to get a vancomycin random level tomorrow even though he has ordered a trough just to be sure as patient has cirrhosis and is already in liver failure and he is homeless also. We will discontinue the gentamicin at this time and continue vancomycin and Zosyn. We will follow. Jana Bloom MD
[2017-05-25] MEDS: Albuterol 0.083% Inhal Sol (2.5 mg/3 mL) UD INH SCH ×6 (01:42→20:18)
[2017-05-25] MEDS: Piperacill/Tazo 3.375gm in Dex 3.375 GM/50 ML BAG IVPB SCH ×2 (03:24→10:22)
[2017-05-25] MEDS: VANCOMYCIN IVPB SCH ×2 (04:10→17:33)
[2017-05-25] MEDS: DEXTROSE IVPB SCH ×2 (04:10→17:33)
[2017-05-25] MEDS: NS IVPB SCH ×2 (04:10→17:33)
[2017-05-25 06:21] LABS: WHITE BLOOD COUNT 8.4 K/uL (4.8-10.8)
[2017-05-25 06:34] LABS: ALB/GLOB RATIO 0.5 (1.0-2.1); ALBUMIN 2.1 g/dL (3.5-5.0); ALT/SGPT 26 U/L (21-72); AST/SGOT 54 U/L (17-59); BLOOD UREA NITROGEN 10 mg/dL (9-20); CALCIUM 6.5 mg/dl (8.6-10.4); GFR AFRICAN-AMERICAN > 60; GFR NON-AFRICAN AMERICAN > 60; MAGNESIUM 1.5 mg/dL (1.6-2.3)
[2017-05-25 06:51] LABS: HEMOGLOBIN 8.7 g/dL (12.0-18.0); MEAN CELL VOLUME 88.2 fL (80.0-94.0); MEAN CORPUSCULAR HEMOGLOBIN 29.8 pg (27.0-31.0); MEAN CORPUSCULAR HGB CONC 33.8 g/dL (33.0-37.0); MEAN PLATELET VOLUME 8.5 fL (7.2-11.7); RBC 2.91 Mil/uL (4.40-5.90); RED CELL DISTRIBUTION WIDTH 21.1 % (11.5-14.5)
[2017-05-25] MEDS ORDERED: Potassium Chloride 20 mEq ER Tab PO ONE ×2 (07:17→10:30)
[2017-05-25] MEDS ORDERED: Magnesium Sulfate 1 gm in D5W 1 GM/100 ML BAG IVPB ONE ×2 (07:20→16:00)
--- NOTE | 2017-05-25 08:09 | CP.PCM.PN ---
Subjective - Date & Time of Evaluation Date of Evaluation: 05/25/17 Time of Evaluation: 07:00 - Subjective Subjective: F/U cirrhosis Objective - Vital Signs/Intake and Output Vital Signs (last 24 hours): Temp Pulse Resp BP Pulse Ox 97.9 F 96 H 20 138/85 100 05/24/17 23:30 05/24/17 23:30 05/24/17 23:30 05/24/17 23:30 05/24/17 23:30 Intake and Output: 05/25/17 05/25/17 06:59 18:59 Intake Total 450 Output Total 275 Balance 175 - Medications Medications: Current Medications Acetaminophen (Tylenol 325mg Tab) 650 mg PO Q6 PRN PRN Reason: Temperature Albuterol Sulfate (Albuterol 0.083% Inhal Laura (2.5 Mg/3 Ml) Ud) 2.5 mg INH RQ6 PRN PRN Reason: Shortness of Breath Last Admin: 05/23/17 04:20 Dose: 2.5 mg Albuterol Sulfate (Albuterol 0.083% Inhal Laura (2.5 Mg/3 Ml) Ud) 2.5 mg INH RQ4 [facility] Last Admin: 05/25/17 05:29 Dose: Not Given Aspirin (Ecotrin) 81 mg PO DAILY [facility] Last Admin: 05/24/17 18:04 Dose: 81 mg Diltiazem HCl (Cardizem Cd) 120 mg PO DAILY [facility] Last Admin: 05/24/17 09:53 Dose: 120 mg Diphenhydramine HCl (Benadryl) 25 mg IVP PRN PRN PRN Reason: Allergy symptoms Ferrous Sulfate (Feosol) 325 mg PO DAILY [facility] Last Admin: 05/24/17 12:49 Dose: 325 mg Fluticasone Propionate (Flonase) 1 spr STEPHEN DAILY [facility] Last Admin: 05/24/17 09:53 Dose: 1 spr Furosemide (Lasix) 40 mg IVP DAILY [facility] Last Admin: 05/24/17 09:54 Dose: 40 mg Guaifenesin/Dextromethorphan (Robitussin Dm) 5 ml PO Q4H PRN PRN Reason: Cough Piperacillin Sod/Tazobactam Sod (Zosyn 3.375 Gm Iv Premix) 3.375 gm in 50 mls @ 100 mls/hr IVPB Q8H [facility] Last Admin: 05/25/17 03:24 Dose: 100 mls/hr Vancomycin HCl 2 gm/ Dextrose/ (Sodium Chloride) 500 mls @ 166.7 mls/hr IVPB Q12H [facility] Last Admin: 05/25/17 04:10 Dose: 166.7 mls/hr Lactic Acid (Lac-Hydrin 12% Lotion (225 G)) 0 gm EXT DAILY [facility] Last Admin: 05/24/17 20:10 Dose: Not Given Lorazepam (Ativan) 1 mg IVP Q6H PRN PRN Reason: Symptoms of alcohol withdrawl Ondansetron HCl (Zofran Inj) 4 mg IVP Q6 PRN PRN Reason: Nausea/Vomiting Oseltamivir Phosphate (Tamiflu Cap) 75 mg PO BID [facility] Stop: 05/26/17 10:01 Last Admin: 05/24/17 18:01 Dose: 75 mg Pantoprazole Sodium (Protonix Inj) 40 mg IVP DAILY [facility] Last Admin: 05/24/17 09:55 Dose: 40 mg Potassium Chloride (K-Dur 20 Meq Er Tab) 20 meq PO ONCE ONE Stop: 05/25/17 10:31 Saccharomyces Boulardii (Florastor) 250 mg PO BID [facility] Last Admin: 05/24/17 17:36 Dose: 250 mg - Labs Labs: 05/25/17 06:05 05/25/17 06:05 PT 24.6 SECONDS (9.7-12.2) H 05/24/17 06:58 INR 2.1 05/24/17 06:58 APTT 39 SECONDS (21-34) H 05/20/17 19:08 - Constitutional Appears: Non-toxic - Neck Exam Neck Exam: absent: Tenderness - Respiratory Exam Respiratory Exam: Clear to Ausculation Bilateral - Cardiovascular Exam Cardiovascular Exam: RRR - GI/Abdominal Exam GI & Abdominal Exam: Distended, Soft, Normal Bowel Sounds. absent: Tenderness, Rebound Additional comments: Umbilic hernia - Extremities Exam Extremities Exam: Pedal Edema - Neurological Exam Neurological Exam: Alert Assessment and Plan (1) Cellulitis of right leg without foot Status: Acute (2) Hyponatremia Status: Acute (3) Sepsis Status: Acute (4) Alcohol abuse Status: Acute (5) Anemia Status: Chronic (6) Atrial fibrillation Status: Chronic (7) Liver cirrhosis, alcoholic Assessment & Plan: LFTs are mildly elevated. TB=2.5.. Consider for liver transplant. Patient is actively drinking and is homeless. Status: Chronic (8) Ascites Assessment & Plan: Diuretics. Check weights and lytes. Status: Acute
[2017-05-25 09:51] LABS: EOS # 0.8 K/uL (0.0-0.7); LYMPH # 1.4 K/uL (1.0-4.3); NEUT # 5.2 K/uL (1.8-7.0)
[2017-05-25] MEDS: Saccharomyces Boulardi 250 mg Cap PO SCH ×2 (10:10→17:33)
[2017-05-25] MEDS: diltiaZEM 120 mg/24 Hours CD Cap PO SCH (10:10)
[2017-05-25] MEDS: Fluticasone Nasal 50 mcg/Spray NAS SCH (10:14)
[2017-05-25] MEDS: Ammonium Lactate 12% Lotion (225 g) EXT SCH (10:15)
--- NOTE | 2017-05-25 14:29 | CP.PCM.CON ---
History of Present Illness - History of Present Illness History of Present Illness: Palliative consult Patient is 56 years old male with multiple admissions over the last year. Patient was admitted on May 20 with symptoms of fever diarrhea and body aches. The CAT scan of the chest was significant for ascites CAT scan of abdomen and pelvis suggested cirrhosis of liver and the umbilical hernia. For the symptoms of the femoral patient was given,Temaflu and placed on contact isolation. On admission patient's MELD test was 20 patient was diagnosed with sepsis. Blood pressure 97/ 51, heart rate 104, oxygen saturation 96% on room air. Triple IV antibiotics initiated. White blood count 8.4, hemoglobin 8.7, sodium 128, total bili 2.5, albumin 2.1, potassium 3.2. Past medical history: Alcohol abuse, anemia, pneumonia,liver cirrhosis, Social history: Single, homeless, has no job, has son and a daughter but is not in contact will be done Family history denied by the patient Review of Systems - Constitutional Constitutional: Fatigue, Malaise, Weight Gain - EENT Eyes: absent: As Per HPI, Blind Spots, Blurred Vision, Change in Vision, Decreased Night Vision, Diplopia, Discharge, Dry Eye, Exophthalmos, Floaters, Irritation, Itchy Eyes, Loss of Peripheral Vision, Pain, Photophobia, Requires Corrective Lenses, Sees Flashes, Spots in Vision, Tunnel Vision, Other Visual Disturbances, Loss of Vision, Other Ears: absent: As Per HPI, Decreased Hearing, Ear Discharge, Ear Pain, Tinnitus, Abnormal Hearing, Disequilibrium, Dizziness, Other Nose/Mouth/Throat: absent: As Per HPI, Epistaxis, Nasal Congestion, Nasal Discharge, Nasal Obstruction, Nasal Trauma, Nose Pain, Post Nasal Drip, Sinus Pain, Sinus Pressure, Bleeding Gums, Change in Voice, Dental Pain, Dry Mouth, Dysphagia, Halitosis, Hoarsness, Lip Swelling, Mouth Lesions, Mouth Pain, Odynophagia, Sore Throat, Throat Swelling, Tongue Swelling, Facial Pain, Neck Pain, Neck Mass, Other - Cardiovascular Cardiovascular: Dyspnea, Leg Edema, Pedal Edema, Rapid Heart Rate - Respiratory Respiratory: Dyspnea on Exertion - Gastrointestinal Gastrointestinal: Abdominal Pain, Bloating - Genitourinary Genitourinary: absent: As Per HPI, Change in Urinary Stream, Difficulty Urinating, Dysuria, Flank Pain, Hematuria, Pyuria, Nocturia, Urinary Incontinence, Urinary Frequency, Urinary Hesitance, Urinary Urgency, Voiding Freq/Small Amts, Freq UTI, Hx Renal/Bladder Calculi, Hx /Renal Surgery, Bladder Distension, Other - Reproductive: Male Reproductive:Male: As Per HPI, Prepubesant, Dyspareunia, Genital Lesions, Genital Pruritis, Pelvic Pain, Sexual Dysfunction, Penile Discharge, Genital Odor, Impotence, On ED Medications, Penile Implant, Other - Musculoskeletal Musculoskeletal: Joint Swelling, Limited Range of Motion - Integumentary Integumentary: Change in Pigmentation, Dry Skin - Neurological Neurological: absent: As Per HPI, Abnormal Gait, Abnormal Hearing, Abnormal Movements, Abnormal Speech, Behavioral Changes, Burning Sensations, Confusion, Convulsions, Disequilibrium, Dizziness, Numbness, Focal Weakness, Frequent Falls , Headaches, Lack of Coordination, Loss of Vision, Memory Loss, Paresthesias, Radicular Pain, Restless Legs, Sensory Deficit, Syncope, Tingling, Tremor, Vertigo, Weakness, Other Visual Disturbances, Other - Psychiatric Psychiatric: absent: As Per HPI, Abnormal Sleep Pattern, Anhedonia, Anxiety, Auditory Hallucinations, Behavioral Changes, Change in Appetite, Change in Libido, Confusion, Depression, Difficulty Concentrating, Hallucinations, Homicidal Ideation, Hopelessness, Irritability, Memory Loss, Mood Swings, Panic Attacks, Paranoia, Suicidal Ideation, Visual Hallucinations, Tactile Hallucinations, Other - Endocrine Endocrine: absent: As Per HPI, Change in Body Appearance, Change in Libido, Cold Intolorance, Deepening of Voice, Excessive Sweating, Fatigue, Flushing, Heat Intolorance, Increase in Ring/Shoe/Hat Size, Palpitations, Polydipsia, Polyphagia, Polyuria, Other - Hematologic/Lymphatic Hematologic: absent: As Per HPI, Easy Bleeding, Easy Bruising, Lymphadenopathy, Other Past Patient History - Infectious Disease Hx of Infectious Diseases: None - Past Medical History & Family History Past Medical History?: Yes - Past Social History Smoking Status: Never Smoked - CARDIAC Hx Atrial Fibrillation: Yes Hx Cardia Arrhythmia: Yes Hx Congestive Heart Failure: No Hx Hypercholesterolemia: No Hx Hypertension: No (Pt denies) Hx Peripheral Edema: Yes - PULMONARY Hx Chronic Obstructive Pulmonary Disease (COPD): No Hx Pneumonia: Yes - NEUROLOGICAL Hx Seizures: (Pt denies) - HEENT Hx HEENT Problems: No - RENAL Hx Chronic Kidney Disease: No - ENDOCRINE/METABOLIC Hx Hypothyroidism: No - HEMATOLOGICAL/ONCOLOGICAL Hx Anemia: Yes Hx Human Immunodeficiency Virus (HIV): No (Pt denies) - INTEGUMENTARY Hx Cellulitis: Yes - MUSCULOSKELETAL/RHEUMATOLOGICAL Hx Arthritis: No Hx Fractures: Yes Hx Rheumatoid Arthritis: No - GASTROINTESTINAL Hx Gastrointestinal Disorders: Yes Other/Comment: umbilical hernia, Liver cirrhosis - GENITOURINARY/GYNECOLOGICAL Hx Sexually Transmitted Disorders: No (Pt denies) - PSYCHIATRIC Hx Substance Use: No - SURGICAL HISTORY Hx Surgeries: Yes Other/Comment: Surgery Rt arm - "artery" - ANESTHESIA Hx Anesthesia: Yes Hx Anesthesia Reactions: No Hx Malignant Hyperthermia: No Meds Allergies/Adverse Reactions: Allergies Allergy/AdvReac Type Severity Reaction Status Date / Time pollen extracts Allergy ITCHING Verified 05/20/17 18:05 - Medications Medications: Current Medications Acetaminophen (Tylenol 325mg Tab) 650 mg PO Q6 PRN PRN Reason: Temperature Albuterol Sulfate (Albuterol 0.083% Inhal Laura (2.5 Mg/3 Ml) Ud) 2.5 mg INH RQ6 PRN PRN Reason: Shortness of Breath Last Admin: 05/23/17 04:20 Dose: 2.5 mg Albuterol Sulfate (Albuterol 0.083% Inhal Laura (2.5 Mg/3 Ml) Ud) 2.5 mg INH RQ4 [facility] Last Admin: 05/25/17 11:22 Dose: 2.5 mg Aspirin (Ecotrin) 81 mg PO DAILY [facility] Last Admin: 05/25/17 10:10 Dose: 81 mg Diltiazem HCl (Cardizem Cd) 120 mg PO DAILY [facility] Last Admin: 05/25/17 10:10 Dose: 120 mg Diphenhydramine HCl (Benadryl) 25 mg IVP PRN PRN PRN Reason: Allergy symptoms Ferrous Sulfate (Feosol) 325 mg PO DAILY [facility] Last Admin: 05/25/17 10:17 Dose: 325 mg Fluticasone Propionate (Flonase) 1 spr STEPHEN DAILY [facility] Last Admin: 05/25/17 10:14 Dose: Not Given Furosemide (Lasix) 40 mg IVP DAILY [facility] Last Admin: 05/25/17 10:10 Dose: 40 mg Guaifenesin/Dextromethorphan (Robitussin Dm) 5 ml PO Q4H PRN PRN Reason: Cough Vancomycin HCl 2 gm/ Dextrose/ (Sodium Chloride) 500 mls @ 166.7 mls/hr IVPB Q12H [facility] Last Admin: 05/25/17 04:10 Dose: 166.7 mls/hr Piperacillin Sod/Tazobactam (Sod 3.375 gm/ Sodium Chloride) 100 mls @ 100 mls/ hr IVPB Q8H [facility] Lactic Acid (Lac-Hydrin 12% Lotion (225 G)) 0 gm EXT DAILY [facility] Last Admin: 05/25/17 10:15 Dose: Not Given Lorazepam (Ativan) 1 mg IVP Q6H PRN PRN Reason: Symptoms of alcohol withdrawl Ondansetron HCl (Zofran Inj) 4 mg IVP Q6 PRN PRN Reason: Nausea/Vomiting Oseltamivir Phosphate (Tamiflu Cap) 75 mg PO BID [facility] Stop: 05/26/17 10:01 Last Admin: 05/25/17 10:10 Dose: 75 mg Pantoprazole Sodium (Protonix Inj) 40 mg IVP DAILY [facility] Last Admin: 05/25/17 10:10 Dose: 40 mg Saccharomyces Boulardii (Florastor) 250 mg PO BID [facility] Last Admin: 05/25/17 10:10 Dose: 250 mg Physical Exam - Constitutional Appears: In Acute Distress, Chronically Ill - Head Exam Head Exam: ATRAUMATIC - Eye Exam Eye Exam: EOMI, Normal appearance, PERRL Pupil Exam: NORMAL ACCOMODATION - ENT Exam ENT Exam: Mucous Membranes Moist, Normal Exam - Neck Exam Neck exam: Positive for: Normal Inspection - Respiratory Exam Respiratory Exam: Accessory Muscle Use, Decreased Breath Sounds, Wheezes, Respiratory Distress - Cardiovascular Exam Cardiovascular Exam: Tachycardia, REGULAR RHYTHM - GI/Abdominal Exam GI & Abdominal Exam: Diminished Bowel Sounds, Distended, Firm, Guarding, Rigid - Rectal Exam Rectal Exam: Deferred - Exam Exam: NORMAL INSPECTION - Extremities Exam Extremities exam: Positive for: joint swelling, pedal edema, tenderness - Back Exam Back exam: NORMAL INSPECTION - Neurological Exam Neurological exam: Alert, Oriented x3 - Psychiatric Exam Psychiatric exam: Depressed - Skin Skin Exam: Normal Color, Warm Results - Vital Signs Recent Vital Signs: Last Vital Signs Temp 98 F 05/25/17 12:32 Pulse 132 H 05/25/17 12:32 Resp 20 05/25/17 12:32 BP 145/87 05/25/17 12:32 Pulse Ox 95 05/25/17 12:32 - Labs Result Diagrams: 05/25/17 06:05 05/25/17 06:05 Labs: Laboratory Results - last 24 hr 05/21/17 05/25/17 05/25/17 13:17 06:05 06:05 WBC 8.4 RBC 2.91 L Hgb 8.7 L Hct 25.7 L MCV 88.2 MCH 29.8 MCHC 33.8 RDW 21.1 H Plt Count 188 MPV 8.5 Neut % (Auto) 62.0 Lymph % (Auto) 17.0 L [place] % (Auto) 12.0 H Eos % (Auto) 9.0 H Baso % (Auto) 0.0 Neut # 5.2 Lymph # 1.4 [place] # 1.0 H Eos # 0.8 H Baso # 0.0 Sodium 128 L Potassium 3.2 L Chloride 100 Carbon Dioxide 24 Anion Gap 7 L BUN 10 Creatinine 0.8 Est GFR ( Amer) > 60 Est GFR (Non-Af Amer) > 60 Random Glucose 125 H Calcium 6.5 L Phosphorus 3.2 Magnesium 1.5 L Total Bilirubin 2.5 H AST 54 ALT 26 Alkaline Phosphatase 137 H Troponin I Total Protein 6.5 Albumin 2.1 L Globulin 4.3 H Albumin/Globulin Ratio 0.5 L Random Vancomycin Ur Strep pneumoniae Ag Not detected 05/25/17 05/25/17 06:05 13:06 WBC RBC Hgb Hct MCV MCH MCHC RDW Plt Count MPV Neut % (Auto) Lymph % (Auto) [place] % (Auto) Eos % (Auto) Baso % (Auto) Neut # Lymph # [place] # Eos # Baso # Sodium Potassium Chloride Carbon Dioxide Anion Gap BUN Creatinine Est GFR ( Amer) Est GFR (Non-Af Amer) Random Glucose Calcium Phosphorus Magnesium Total Bilirubin AST ALT Alkaline Phosphatase Troponin I < 0.0120 Total Protein Albumin Globulin Albumin/Globulin Ratio Random Vancomycin 45.84 Ur Strep pneumoniae Ag Assessment & Plan - Assessment and Plan (Free Text) Assessment: Palliative consult Code Full Code before the consult. There is no advanced directive on the chart. PPS 20%'s I reviewed medical records, all of the diagnostic studies, examined and interviewed the patient in the bed. Patient seen and examined in bed looking chronically ill in mild respiratory distress, AAo X 3. Patient speaks some Georgian enough to do basic conversation. Breath sounds are congested, breathing is labored . There is wheezing heard without stethoscope. Very much extended abdomen, hard to touch with absent bowel sounds and protruding Belly button due to umbilical hernia. Denies abdominal pain , denies constipation,admits to discomfort due to distention. Denies diarrhea LEs swollen, right more than left. Denies pain due LEs. There is discoloration and disfiguring of toes to both feet. Unable to walk, or needs max assistance with it. I reviewed his physical presentation and elicited his knowledge about his disease. patient asked for the translation in Amharic which I did. patient admitted knowledge of being very sick and asked me to explain the expected path of his disease. I warned patient that I may have to say things what could make him sad. Patient acknowledged it and asked me to precede. I corrected his knowledge by providing the most common symptoms of liver cirrhosis and suggested that the life expectancy is usually short. I explained to patient that the only cure for the disease was a liver transplant and it was suggested by Doctor Cindy. Patient was happy to hear it. I further said that there was no guaranty that he would be accepted and that waiting list is usually very long. he wanted to be referred to . Further I discussed Code status. I asked patient that if his condition gets more severe ,he may need aggressive life support such an intubation to assist him with breathing. At first, patient said he wanted to . I further offered more information about quality of life and very poor, almost zero chances he would ever get of the MV. Patient was very clear that he would want us to use all prudent measures to support his comfort . if it comes to the point that his diseqse takes over and no expected recovery as expected, he would want to be allowed natural . I asked him twice again the same question and patient gave the same answer. In further discussion, patient asked for Hilda Gardner )to be his surrogate decision maker. I reviewed the POLST. Patient choose DNR/DNI . Patient asked me to call Kendra and to ask her to bring in his son and daughter as he wanted to see them. I promised I would and I did. Patient wanted his sister Pillar [phone] to be made aware as well. This was shared with Doctor Charlene Reaves and nursing. Impression * This is a chronically ill patient with acute symptoms of mild respiratory distress due to liver cirrhosis * Edema of LEs, difficulties walking * Discomfort due to distended abdomen * Patient is aware of his diagnosis and poor prognosis * Patient wishes natural if all ordinary measures do not help him * Patient wishes to see his sister and children * Patient named his friend Hilda Gardner a surrogate decision maker * Patient wishes to be refereed to a liver transplant program Suggestion * Agree with DNR/DNI * Patient needs a diuretics for fluid retention * Nebulizer treatment * Elevate HOB at 45 degrees * Monitor for pain, please call me if needed for pain control * Would keep patient NPO * Would consider Lactulose if no BM I just spoke to patient's sister Pillar and told her patient's wishes to see her and his children. Time spent in Advance care discussion 45 min.
[2017-05-25] MEDS ORDERED: Vancomycin 2 GM in Sodium Chloride 0.9% 500 ML IVPB SCH (17:00)
--- NOTE | 2017-05-25 18:12 | CP.PCM.PN ---
Subjective - Date & Time of Evaluation Date of Evaluation: 05/25/17 Time of Evaluation: 08:10 - Subjective Subjective: Dr. Serafin Herbert, Jaydon Concepcion Spa Concierge-PGY1 Patient seen and examined at bedside. Per nursing no acute events occurred overnight. The patient reports some non radiating chest pain today and some right thigh pain. The patient denies any nausea, vomiting, abdominal pain, fevers, chills, headaches, changes in vision, numbness or tingling in the hands or feet, syncopal episodes or any other complaints. Objective - Vital Signs/Intake and Output Vital Signs (last 24 hours): Temp Pulse Resp BP Pulse Ox 98 F 132 H 20 145/87 95 05/25/17 12:32 05/25/17 12:32 05/25/17 12:32 05/25/17 12:32 05/25/17 12:32 Intake and Output: 05/25/17 05/25/17 06:59 18:59 Intake Total 450 Output Total 275 Balance 175 - Medications Medications: Current Medications Acetaminophen (Tylenol 325mg Tab) 650 mg PO Q6 PRN PRN Reason: Temperature Albuterol Sulfate (Albuterol 0.083% Inhal Laura (2.5 Mg/3 Ml) Ud) 2.5 mg INH RQ6 PRN PRN Reason: Shortness of Breath Last Admin: 05/23/17 04:20 Dose: 2.5 mg Albuterol Sulfate (Albuterol 0.083% Inhal Laura (2.5 Mg/3 Ml) Ud) 2.5 mg INH RQ4 JOSELUIS Last Admin: 05/25/17 15:58 Dose: 2.5 mg Aspirin (Ecotrin) 81 mg PO DAILY JOSELUIS Last Admin: 05/25/17 10:10 Dose: 81 mg Diltiazem HCl (Cardizem Cd) 120 mg PO DAILY JOSELUIS Last Admin: 05/25/17 10:10 Dose: 120 mg Diphenhydramine HCl (Benadryl) 25 mg IVP PRN PRN PRN Reason: Allergy symptoms Ferrous Sulfate (Feosol) 325 mg PO DAILY [facility] Last Admin: 05/25/17 10:17 Dose: 325 mg Fluticasone Propionate (Flonase) 1 spr STEPHEN DAILY [facility] Last Admin: 05/25/17 10:14 Dose: Not Given Furosemide (Lasix) 40 mg IVP DAILY [facility] Last Admin: 05/25/17 10:10 Dose: 40 mg Guaifenesin/Dextromethorphan (Robitussin Dm) 5 ml PO Q4H PRN PRN Reason: Cough Piperacillin Sod/Tazobactam (Sod 3.375 gm/ Sodium Chloride) 100 mls @ 100 mls/ hr IVPB Q8H [facility] Vancomycin HCl 2 gm/ Sodium (Chloride) 500 mls @ 166.7 mls/hr IVPB Q12H [facility] Lactic Acid (Lac-Hydrin 12% Lotion (225 G)) 0 gm EXT DAILY [facility] Last Admin: 05/25/17 10:15 Dose: Not Given Lorazepam (Ativan) 1 mg IVP Q6H PRN PRN Reason: Symptoms of alcohol withdrawl Ondansetron HCl (Zofran Inj) 4 mg IVP Q6 PRN PRN Reason: Nausea/Vomiting Oseltamivir Phosphate (Tamiflu Cap) 75 mg PO BID [facility] Stop: 05/26/17 10:01 Last Admin: 05/25/17 17:33 Dose: 75 mg Pantoprazole Sodium (Protonix Inj) 40 mg IVP DAILY [facility] Last Admin: 05/25/17 10:10 Dose: 40 mg Saccharomyces Boulardii (Florastor) 250 mg PO BID [facility] Last Admin: 05/25/17 17:33 Dose: 250 mg - Labs Labs: 05/25/17 06:05 05/25/17 06:05 PT 24.6 SECONDS (9.7-12.2) H 05/24/17 06:58 INR 2.1 05/24/17 06:58 APTT 39 SECONDS (21-34) H 05/20/17 19:08 - Constitutional Appears: Toxic - Head Exam Head Exam: ATRAUMATIC, NORMAL INSPECTION, NORMOCEPHALIC - Eye Exam Eye Exam: EOMI, Normal appearance, PERRL. absent: Periorbital tenderness Pupil Exam: NORMAL ACCOMODATION, PERRL. absent: Irregular, Unequal - ENT Exam ENT Exam: Mucous Membranes Moist, Normal Oropharynx - Neck Exam Neck Exam: Normal Inspection. absent: Lymphadenopathy, Thyromegaly - Respiratory Exam Respiratory Exam: Clear to Ausculation Bilateral, NORMAL BREATHING PATTERN. absent: Chest Wall Tenderness, Prolonged Expiratory Phase, Respiratory Distress - Cardiovascular Exam Cardiovascular Exam: REGULAR RHYTHM, RRR, +S1, +S2. absent: Gallop, Rubs - GI/Abdominal Exam GI & Abdominal Exam: Soft, Hernia, Normal Bowel Sounds. absent: Hyperactive Bowel Sounds Additional comments: Reducible hernia present - Extremities Exam Extremities Exam: Full ROM. absent: Joint Swelling, Pedal Edema, Tenderness Additional comments: Chronic venous changes in the right lower extremity - Back Exam Back Exam: NORMAL INSPECTION. absent: CVA tenderness (L), CVA tenderness (R), paraspinal tenderness - Neurological Exam Neurological Exam: Alert, Awake, CN II-XII Intact - Psychiatric Exam Psychiatric exam: Normal Affect, Normal Mood. absent: Anxious, Depressed - Skin Skin Exam: Dry, Intact, Normal Color, Warm Assessment and Plan - Assessment and Plan (Free Text) Assessment: 56 year old male with a past medical history of liver cirrhosis, atrial fibrillation, varices who was admitted to [facility] for sepsis 2/2 to uti and cellulitis. Plan: Sepsis Bactermia RLE Cellulitis * On admission: Febrile, tachycardiac, leukocytosis with left shift, lactate 2.5 -> 1.3 * Tmax: 99.9F * Continue Gentamicin Sulfate 8-mg IVPB Q 8H (active since 05/22/17) * Continue Zosyn 3.375 IV Q Q8H (active since 05/21/17) * Vancomycin changed to 4gram IVPB Q24H (active since * Follow-up Vancomycin trough 15:30 * Continue Tamiflu 75mg PO BID (active since 05/21/17) * Procalcitonin 3.93 * Blood Culture (05/20/17): Strep Agalactiae Group B X2 * Wound Culture (05/21/17): Strep Agalactiae Group B, Staphylococcus Aureus * Urine culture (05/20/17): no growth * Throat Culture (05/21/17): no beta group A isolatedm, negative * Vancomycin trough ordered for 4A.m. Will sign out to night team to follow up. 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 * ASA 81 mg PO daily Hyponatremia SIADH * 128 today. * Serum osmolality: 281 * Urine osmolality:722 * Urine Random Sodium:7 Elevated T-bili -3.2 Today -Most likely secondary to alcohol abuse. -Will continue to monitor. Diarrhea * Improvement from yesterday. Will continue to monitor. * CT abdomen/Pelvis PO contrast shows nonobstructing left renal calculus, umbilical hernia, and cirrhotic liver Hypomagnesmia /hypokalemia -Unable to Magnesium replete today due to shortage in the hospital. Will monitor and follow up with laboratory in the A.M. Will continue to monitor with serial CMP's. -Potassium repleted. Will continue to monitor with serial CMP's. Anemia * Likely secondary to chronic disease * Baseline H/H: 01/25, on admission: 12/23.8 * Reticulocyte: 3.5 * Iron: 25 * TIBC: 266 * %saturation: 9 * Ferriti: 28.5 * Retic count:3.5 * Folate: 705 * B12: 7.3 Hx of Atrial Fibrillation * Not on any anticoagulation (Hx of varices and medication non-compliance) * CHADS-Vasc score of 1: Low-moderate risk and should consider antiplatelet or anticoagulation therapy * EKG showed a-fib with RVR following * Continue on Cardizem Alcohol Decompensated Cirrhosis * MELD 20 on admission * Hepatitis panel negative 11/10/16 * AFP 2.3 11/10/16 * INR 2.1 most likely 2/2 to liver failure. * Ammonia 34 Continue Lactulose 20mg POqHS * CT abdomen/Pelvis PO contrast shows nonobstructing left renal calculus, umbilical hernia, and cirrhotic liver * Fluid restriction (1.5 Liters a day) Hx Alcohol Abuse * Alcohol Serum <10 * UDS negative * Patient is not in acute withdrawal Prophylactic Measure * GI PPX: Protonix 40mg IVP daily * Contraindicated DVT PPx for history of varices, and downtrending hemoglobin * SCD c/i * Florastor 250mg PO BID Disposition: * Completed POLST Form * Made DNR/DNI today. * Will follow up with Dr. Barbosa for rec's in regards to referral to Liver Clinic.
[2017-05-25] MEDS ORDERED: Albumin Human 25% (12.5 gm/50 ml) IV ONE (18:43)
[2017-05-25] MEDS: Piperacillin/Tazobact 3.375 GM in Sodium Chloride 0.9% 100 ML IVPB SCH (19:30)
[2017-05-26] MEDS: Albuterol 0.083% Inhal Sol (2.5 mg/3 mL) UD INH SCH ×6 (00:13→20:09)
[2017-05-26] MEDS: Piperacillin/Tazobact 3.375 GM in Sodium Chloride 0.9% 100 ML IVPB SCH ×3 (04:00→18:36)
[2017-05-26] MEDS: Vancomycin 2 GM in Sodium Chloride 0.9% 500 ML IVPB SCH ×2 (07:09→16:28)
--- NOTE | 2017-05-26 09:26 | CP.PCM.PN ---
<Jaydon Concepcion - Last Filed: 05/26/17 10:14> Subjective - Date & Time of Evaluation Date of Evaluation: 05/26/17 Time of Evaluation: 07:22 - Subjective Subjective: Jaydon Meléndez [employer]anning [employer]on Attendant-PGY1 Patient seen and examined at bedside. Per nursing no acute events occurred overnight. The patient still reports left leg extremity pain. The patient report also reports some abdominal tenderness. The patient denies shortness of breath, fevers, chills, nausea, vomiting, changes in vision, syncopal episodes, or any other complaints. Objective - Vital Signs/Intake and Output Vital Signs (last 24 hours): Temp Pulse Resp BP Pulse Ox 98.3 F 97 H 20 147/78 98 05/26/17 07:00 05/26/17 07:00 05/26/17 07:00 05/26/17 07:00 05/26/17 07:00 Intake and Output: 05/26/17 05/26/17 06:59 18:59 Intake Total 100 Output Total 615 Balance -515 - Medications Medications: Current Medications Acetaminophen (Tylenol 325mg Tab) 650 mg PO Q6 PRN PRN Reason: Temperature Albuterol Sulfate (Albuterol 0.083% Inhal Laura (2.5 Mg/3 Ml) Ud) 2.5 mg INH RQ6 PRN PRN Reason: Shortness of Breath Last Admin: 05/23/17 04:20 Dose: 2.5 mg Albuterol Sulfate (Albuterol 0.083% Inhal Laura (2.5 Mg/3 Ml) Ud) 2.5 mg INH RQ4 JOSELUIS Last Admin: 05/26/17 07:49 Dose: Not Given Aspirin (Ecotrin) 81 mg PO DAILY [facility] Last Admin: 05/25/17 10:10 Dose: 81 mg Diltiazem HCl (Cardizem Cd) 120 mg PO DAILY [facility] Last Admin: 05/25/17 10:10 Dose: 120 mg Diphenhydramine HCl (Benadryl) 25 mg IVP PRN PRN PRN Reason: Allergy symptoms Ferrous Sulfate (Feosol) 325 mg PO DAILY [facility] Last Admin: 05/25/17 10:17 Dose: 325 mg Fluticasone Propionate (Flonase) 1 spr STEPHEN DAILY [facility] Last Admin: 05/25/17 10:14 Dose: Not Given Furosemide (Lasix) 40 mg IVP DAILY [facility] Last Admin: 05/25/17 10:10 Dose: 40 mg Guaifenesin/Dextromethorphan (Robitussin Dm) 5 ml PO Q4H PRN PRN Reason: Cough Piperacillin Sod/Tazobactam (Sod 3.375 gm/ Sodium Chloride) 100 mls @ 100 mls/ hr IVPB Q8H [facility] Last Admin: 05/26/17 04:00 Dose: 100 mls/hr Vancomycin HCl 2 gm/ Sodium (Chloride) 500 mls @ 166.7 mls/hr IVPB Q12H [facility] Last Admin: 05/26/17 07:09 Dose: Not Given Lactic Acid (Lac-Hydrin 12% Lotion (225 G)) 0 gm EXT DAILY [facility] Last Admin: 05/25/17 10:15 Dose: Not Given Lorazepam (Ativan) 1 mg IVP Q6H PRN PRN Reason: Symptoms of alcohol withdrawl Ondansetron HCl (Zofran Inj) 4 mg IVP Q6 PRN PRN Reason: Nausea/Vomiting Oseltamivir Phosphate (Tamiflu Cap) 75 mg PO BID [facility] Stop: 05/26/17 10:01 Last Admin: 05/25/17 17:33 Dose: 75 mg Pantoprazole Sodium (Protonix Inj) 40 mg IVP DAILY [facility] Last Admin: 05/25/17 10:10 Dose: 40 mg Saccharomyces Boulardii (Florastor) 250 mg PO BID [facility] Last Admin: 05/25/17 17:33 Dose: 250 mg - Labs Labs: 05/25/17 06:05 05/25/17 06:05 PT 24.6 SECONDS (9.7-12.2) H 05/24/17 06:58 INR 2.1 05/24/17 06:58 APTT 39 SECONDS (21-34) H 05/20/17 19:08 - Head Exam Head Exam: ATRAUMATIC, NORMAL INSPECTION, NORMOCEPHALIC - Eye Exam Eye Exam: EOMI, Normal appearance, PERRL. absent: Periorbital tenderness Pupil Exam: NORMAL ACCOMODATION, PERRL. absent: Irregular, Unequal - ENT Exam ENT Exam: Mucous Membranes Moist, Normal Exam, Normal Oropharynx - Neck Exam Neck Exam: Normal Inspection. absent: Lymphadenopathy, Meningismus, Thyromegaly - Respiratory Exam Respiratory Exam: Clear to Ausculation Bilateral, NORMAL BREATHING PATTERN. absent: Chest Wall Tenderness, Prolonged Expiratory Phase, Respiratory Distress - Cardiovascular Exam Cardiovascular Exam: REGULAR RHYTHM, +S1, +S2 - GI/Abdominal Exam GI & Abdominal Exam: Distended, Normal Bowel Sounds. absent: Guarding - Extremities Exam Extremities Exam: Tenderness. absent: Pedal Edema - Back Exam Back Exam: NORMAL INSPECTION. absent: CVA tenderness (L), CVA tenderness (R), paraspinal tenderness - Neurological Exam Neurological Exam: Alert, Awake, CN II-XII Intact, Oriented x3 - Psychiatric Exam Psychiatric exam: Normal Affect, Normal Mood - Skin Skin Exam: Dry, Intact, Normal Color Assessment and Plan - Assessment and Plan (Free Text) Assessment: 56 year old male with a past medical history of liver cirrhosis, atrial fibrillation, varices who was admitted to [facility] for sepsis 2/2 to uti and cellulitis. Plan: Sepsis Bactermia RLE Cellulitis * On admission: Febrile, tachycardiac, leukocytosis with left shift, lactate 2.5 -> 1.3 * Tmax: 99.9F * Continue Gentamicin Sulfate 8-mg IVPB Q 8H (active since 05/22/17) * Continue Zosyn 3.375 IV Q Q8H (active since 05/21/17) * Vancomycin changed to 4gram IVPB Q24H (active since * Follow-up Vancomycin trough 15:30 * Continue Tamiflu 75mg PO BID (active since 05/21/17) * Procalcitonin 3.93 * Blood Culture (05/20/17): Strep Agalactiae Group B X2 * Wound Culture (05/21/17): Strep Agalactiae Group B, Staphylococcus Aureus * Urine culture (05/20/17): no growth * Throat Culture (05/21/17): no beta group A isolatedm, negative * Vancomycin trough ordered for 4A.m. Will sign out to night team to follow up. 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 * ASA 81 mg PO daily Hyponatremia SIADH * 128 today. * Serum osmolality: 281 * Urine osmolality:722 * Urine Random Sodium:7 Elevated T-bili -3.2 Today -Most likely secondary to alcohol abuse. -Will continue to monitor. Diarrhea * Improvement from yesterday. Will continue to monitor. * CT abdomen/Pelvis PO contrast shows nonobstructing left renal calculus, umbilical hernia, and cirrhotic liver Hypomagnesmia /hypokalemia -Unable to Magnesium replete today due to shortage in the hospital. Will monitor and follow up with laboratory in the A.M. Will continue to monitor with serial CMP's. -Potassium repleted. Will continue to monitor with serial CMP's. Anemia * Likely secondary to chronic disease * Baseline H/H: 01/25, on admission: 12/23.8 * Reticulocyte: 3.5 * Iron: 25 * TIBC: 266 * %saturation: 9 * Ferriti: 28.5 * Retic count:3.5 * Folate: 705 * B12: 7.3 Hx of Atrial Fibrillation * Not on any anticoagulation (Hx of varices and medication non-compliance) * CHADS-Vasc score of 1: Low-moderate risk and should consider antiplatelet or anticoagulation therapy * EKG showed a-fib with RVR following * Continue on Cardizem Alcohol Decompensated Cirrhosis * MELD 20 on admission * Hepatitis panel negative 11/10/16 * AFP 2.3 11/10/16 * INR 2.1 most likely 2/2 to liver failure. * Ammonia 34 Continue Lactulose 20mg POqHS * CT abdomen/Pelvis PO contrast shows nonobstructing left renal calculus, umbilical hernia, and cirrhotic liver * Fluid restriction (1.5 Liters a day) * Patient has a tentative place for a Paracentesis today depending on INR. Will f/u with results. Hx Alcohol Abuse * Alcohol Serum <10 * UDS negative * Patient is not in acute withdrawal Prophylactic Measure * GI PPX: Protonix 40mg IVP daily * Contraindicated DVT PPx for history of varices, and downtrending hemoglobin * SCD c/i * Florastor 250mg PO BID Disposition: * Completed POLST Form * Made DNR/DNI today. * Will follow up with Dr. Barbosa for rec's in regards to referral to Liver Clinic. <Serafin Reaves - Last Filed: 05/26/17 21:00> Objective - Vital Signs/Intake and Output Vital Signs (last 24 hours): Temp Pulse Resp BP Pulse Ox 98.1 F 98 H 20 129/77 99 05/26/17 15:00 05/26/17 15:00 05/26/17 15:00 05/26/17 15:00 05/26/17 15:00 - Medications Medications: Current Medications Acetaminophen (Tylenol 325mg Tab) 650 mg PO Q6 PRN PRN Reason: Temperature Albuterol Sulfate (Albuterol 0.083% Inhal Laura (2.5 Mg/3 Ml) Ud) 2.5 mg INH RQ4 [facility] Last Admin: 05/26/17 20:09 Dose: Not Given Aspirin (Ecotrin) 81 mg PO DAILY [facility] Last Admin: 05/26/17 10:59 Dose: 81 mg Diltiazem HCl (Cardizem Cd) 120 mg PO DAILY [facility] Last Admin: 05/26/17 11:06 Dose: 120 mg Diphenhydramine HCl (Benadryl) 25 mg IVP PRN PRN PRN Reason: Allergy symptoms Ferrous Sulfate (Feosol) 325 mg PO DAILY [facility] Last Admin: 05/26/17 10:58 Dose: 325 mg Fluticasone Propionate (Flonase) 1 spr STEPHEN DAILY [facility] Last Admin: 05/26/17 11:35 Dose: 1 spr Furosemide (Lasix) 40 mg IVP DAILY [facility] Last Admin: 05/26/17 10:59 Dose: 40 mg Guaifenesin/Dextromethorphan (Robitussin Dm) 5 ml PO Q4H PRN PRN Reason: Cough Piperacillin Sod/Tazobactam (Sod 3.375 gm/ Sodium Chloride) 100 mls @ 100 mls/ hr IVPB Q8H [facility] Last Admin: 05/26/17 18:36 Dose: 100 mls/hr Vancomycin/Sodium Chloride (Vancomycin 1 Gm/Ns 200 Ml) 1 gm in 200 mls @ 133 mls/hr IVPB Q12H [facility] Stop: 05/31/17 20:01 Albumin Human (Albumin Human 25% (12.5 Gm/50 Ml)) 50 mls @ 100 mls/hr IV ONCE ONE Stop: 05/26/17 21:29 Lactic Acid (Lac-Hydrin 12% Lotion (225 G)) 0 gm EXT DAILY [facility] Last Admin: 05/26/17 11:05 Dose: 1 applic Lorazepam (Ativan) 1 mg IVP Q6H PRN PRN Reason: Symptoms of alcohol withdrawl Ondansetron HCl (Zofran Inj) 4 mg IVP Q6 PRN PRN Reason: Nausea/Vomiting Pantoprazole Sodium (Protonix Ec Tab) 40 mg PO DAILY [facility] Last Admin: 05/26/17 11:05 Dose: 40 mg Saccharomyces Boulardii (Florastor) 250 mg PO BID [facility] Last Admin: 05/26/17 18:36 Dose: 250 mg - Labs Labs: 05/26/17 11:44 05/26/17 11:44 PT 23.0 SECONDS (9.7-12.2) H 05/26/17 11:44 INR 2.0 05/26/17 11:44 APTT 39 SECONDS (21-34) H 05/20/17 19:08 Attending/Attestation - Attestation I have personally seen and examined this patient.: Yes I have fully participated in the care of the patient.: Yes I have reviewed all pertinent clinical information, including history, physical exam and plan: Yes Notes (Text): 05/26/17 20:17 Patient was seen and examined at 5:00 PM 05/26/17 667 A Currently FULL ROS Abdominal Pain is better and nonexistant after paracentesis earlier today Breathing much better after the paracentesis and no wheezing. NO coughing Complains of chronic left lateral upper thigh pain s/p injury as a younger man: states that this is unchanged and not new Moving bowels and no blood/black stools and well formed NO burning pain with urination NO chest pain NO new changes in vision NO new changes in hearing NO paresthesias NO headaches NO n/v and tolerating diet NO dysphagia/odynophagia Exam: General: AAOx3, NAD HEENT: EOMI, PERRLA, NCA, NO pharyngeal erythema/exudate, NO cervical/ supraclavicular/submandibular lymphadenopathy, NO thyromegaly, Nasal Turbinates are nonerythematous/nonedematous, Oral mucosa is moist and has poor dentition Cardio: NS1 and NS2, NO M/R/G Resp: CTA B/L, NO R/R/W GI: BSX4, Softer and NONtender (compared to prior exams), Liver and Spleen could not be palpated secondary to distention, NO guarding/rebound tenderness, Umbilical Hernia which is compressable/nontender/not warm/nonerythematous Ext: Pulses B/L UE are strong and equal, Pulses B/L LE are palpable but weaker than the UE, Capillary Refill is 2 seconds, 2+ Pitting edema B/L LE, Right Leg greater circumference compared to the Left Leg, Right Lower Leg with browner skin coloration compared to the Left Lower Leg is normal skin color to rest of body, Patchy areas of hyperkeratosis throughout the Right Lower Leg, NO open wounds noted on Right Lower Leg, NO warmth and NO erythema noted on Right Anterior Lower Leg that was demarcated with blue ink, Deformed toes bilateral feet. Neuro: CN II through XII are grossly intact Assessment/Plan 1) Sepsis Bactermia RLE Cellulitis * On admission: Febrile, tachycardiac, leukocytosis with left shift, lactate 2.5 -> 1.3 * Gentamicin Sulfate 8-mg IVPB Q 8H (active since 05/22/17 through 05/24/17) * Zosyn 3.375 IV Q Q8H (active since 05/21/17) * Vancomycin (active since 05/22/17) was increased to 2 grams IV Q12H on 05/24/17 for goal trough of 15. Vanco Trough elevated at 21+ on 05/26/17 therefore reduced to 1 gm IV Q12H * Follow-up Vancomycin trough 5:30 AM 05/28/17 * Tamiflu 75mg PO BID (05/21/17 through 05/26/17) * Procalcitonin 3.93 * Blood Culture (05/20/17): Strep Agalactiae Group B X2 * Wound Culture (05/21/17): Strep Agalactiae Group B, Staphylococcus Aureus * Urine culture (05/20/17): no growth * Throat Culture (05/21/17): no beta group A isolated 2) RLE Cellulitis with Chronic Venous Stasis * Right LE weeping puncture wound on admission -->improved and not noted on exam 05/26/17 * Wound Culture (05/21/17): Strep Agalactiae Group B, MRSA * Venous doppler reveals no DVT bilaterally but 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 * ASA 81 mg PO daily * Lasix 40 mg IV 1x/day 3) Hyponatremia SIADH * 127 on admission and is currently stable * Serum osmolality: 281 * Urine osmolality * Urine Random Sodium * Fluid Restriction: 1200mL 4) Diarrhea * Stool Culture and O&P 05/21/17 are NEGATIVE * Diarrhea has resolved 5) Anemia * Likely secondary to chronic disease * Baseline H/H: 01/25, on admission: 12/23.8 * Reticulocyte: 3.5 * Iron: 25 * TIBC: 266 * %saturation: 9 * Ferritin: 28.5 * Retic count:3.5 * Folate: 705 * B12: 7.3 * Ferrous Sulfate 325 mg PO 1x/day 6) Hx of Atrial Fibrillation * Not on any anticoagulation (Hx of varices and medication non-compliance) and because his INR is 2+ (due to the Liver Failure) * Diltiazem CD 120 mg PO 1x/day 7) Alcohol Decompensated Cirrhosis * MELD 20 on admission * Discriminant Function is 63.1 * Hepatitis panel negative 11/10/16 * AFP 2.3 11/10/16 * Ammonia 34 on admission * CT Abdmon/Pelvis 05/23/17: cirrhotic liver without focal hepatic mass, ascites and anasarca, nonobstructing left renal calculus, umbilical hernia containing fluid and omentum without bowel * CT Chest 05/23/17: no infiltrate/effusion, ascites, hepatic cirrhosis, left upper pole renal hyerdense cyst * U/S Abdomen 05/23/17: cirrhosis, ascites, thickened gallbladder wall, bilateral cortical renal cysts * Extensive conversation with patient and ex- 05/25/17 about poor prognosis of his liver failure * GI Dr. Barbosa spoke with [facility] at [facility] and starting steroids is NOT recommended and patient is poor candidate for liver transplant considering his questionable continued alcohol use and homelessness. F/U with [facility] at [facility] as an outpatient. * 05/26/17: paracentesis by IR Dr. Romero and 1 liter of fluid removed with significant improvement in patient abdominal pain and breathing. F/U peritoneal fluid culture and cytology 8) Hx Alcohol Abuse * Alcohol Serum <10 * UDS negative * Patient is not in acute withdrawal 9). Hypomagnesemia * Given Magnesium Sulfate 1 gm x 2 on 05/23/17 and 05/24/17 but could not be given on 05/25/17 due to lack of Magnesium Sulfate in pharmacy * F/U Magnesium level 10) Prophylactic Measure * Lac Hydrin 12% lotion bilateral legs daily * Zofran 4 mg IV Q6H PRN N/V * Protonix 40 mg PO 1x/day * Florastor 250 mg PO 2x/day * Duoneb 05/25/17: Palliative Care Nurse Katheryn met with patient and explained poor prognosis and I subsequently had same conversation with patient and his ex- . Patient has decided on DNR/DNI and POLST has been completed and placed in chart. 05/26/17: GI Dr. Barbosa spoke with [facility] at [facility] and starting steroids is NOT recommended and patient is poor candidate for liver transplant considering his questionable continued alcohol use and homelessness. F/U with [facility] at [facility] as an outpatient. Serafin Reaves D.O.
--- NOTE | 2017-05-26 10:14 | PCM.SURG1 ---
Surgeon's Initial Post Op Note - Surgeon's Notes Surgeon: Maykel Romero MD Loading Dock Hand: NONE Type of Anesthesia: Local Pre-Operative Diagnosis: Ascites Operative Findings: US showed edema and small amount of ascites Post-Operative Diagnosis: Ascites Operation Performed: US guided paracentesis Specimen/Specimens Removed: 800 cc of straw colored fluid Estimated Blood Loss: EBL {In ML}: 1 Blood Products Given: N/A Drains Used: No Drains Post-Op Condition: Fair Date of Surgery/Procedure: 05/26/17 Time of Surgery/Procedure: 10:40
[2017-05-26] MEDS: Saccharomyces Boulardi 250 mg Cap PO SCH ×2 (10:59→18:36)
[2017-05-26] MEDS: Pantoprazole 40 mg EC Tab PO SCH (11:05)
[2017-05-26] MEDS: Ammonium Lactate 12% Lotion (225 g) EXT SCH (11:05)
[2017-05-26] MEDS: diltiaZEM 120 mg/24 Hours CD Cap PO SCH (11:06)
[2017-05-26] MEDS: Fluticasone Nasal 50 mcg/Spray NAS SCH (11:35)
--- NOTE | 2017-05-26 11:35 | CP.PCM.PN ---
Subjective - Date & Time of Evaluation Date of Evaluation: 05/26/17 Time of Evaluation: 11:10 - Subjective Subjective: F/U cirrhosis HAd paracentesis. Noted- DNR Denies Rb, melena, fever, chills, SZ, hematuria, hemoptysis Objective - Vital Signs/Intake and Output Vital Signs (last 24 hours): Temp Pulse Resp BP Pulse Ox 98.3 F 97 H 20 132/85 98 05/26/17 07:00 05/26/17 07:00 05/26/17 07:00 05/26/17 10:59 05/26/17 07:00 Intake and Output: 05/26/17 05/26/17 06:59 18:59 Intake Total 100 Output Total 615 Balance -515 - Medications Medications: Current Medications Acetaminophen (Tylenol 325mg Tab) 650 mg PO Q6 PRN PRN Reason: Temperature Albuterol Sulfate (Albuterol 0.083% Inhal Laura (2.5 Mg/3 Ml) Ud) 2.5 mg INH RQ6 PRN PRN Reason: Shortness of Breath Last Admin: 05/23/17 04:20 Dose: 2.5 mg Albuterol Sulfate (Albuterol 0.083% Inhal Laura (2.5 Mg/3 Ml) Ud) 2.5 mg INH RQ4 [facility] Last Admin: 05/26/17 11:20 Dose: 2.5 mg Aspirin (Ecotrin) 81 mg PO DAILY [facility] Last Admin: 05/26/17 10:59 Dose: 81 mg Diltiazem HCl (Cardizem Cd) 120 mg PO DAILY [facility] Last Admin: 05/26/17 11:06 Dose: 120 mg Diphenhydramine HCl (Benadryl) 25 mg IVP PRN PRN PRN Reason: Allergy symptoms Ferrous Sulfate (Feosol) 325 mg PO DAILY [facility] Last Admin: 05/26/17 10:58 Dose: 325 mg Fluticasone Propionate (Flonase) 1 spr STEPHEN DAILY [facility] Last Admin: 05/25/17 10:14 Dose: Not Given Furosemide (Lasix) 40 mg IVP DAILY [facility] Last Admin: 05/26/17 10:59 Dose: 40 mg Guaifenesin/Dextromethorphan (Robitussin Dm) 5 ml PO Q4H PRN PRN Reason: Cough Piperacillin Sod/Tazobactam (Sod 3.375 gm/ Sodium Chloride) 100 mls @ 100 mls/ hr IVPB Q8H [facility] Last Admin: 05/26/17 11:06 Dose: 100 mls/hr Vancomycin HCl 2 gm/ Sodium (Chloride) 500 mls @ 166.7 mls/hr IVPB Q12H [facility] Last Admin: 05/26/17 07:09 Dose: Not Given Lactic Acid (Lac-Hydrin 12% Lotion (225 G)) 0 gm EXT DAILY [facility] Last Admin: 05/26/17 11:05 Dose: 1 applic Lorazepam (Ativan) 1 mg IVP Q6H PRN PRN Reason: Symptoms of alcohol withdrawl Ondansetron HCl (Zofran Inj) 4 mg IVP Q6 PRN PRN Reason: Nausea/Vomiting Pantoprazole Sodium (Protonix Ec Tab) 40 mg PO DAILY [facility] Last Admin: 05/26/17 11:05 Dose: 40 mg Saccharomyces Boulardii (Florastor) 250 mg PO BID [facility] Last Admin: 05/26/17 10:59 Dose: 250 mg - Labs Labs: 05/25/17 06:05 05/25/17 06:05 PT 24.6 SECONDS (9.7-12.2) H 05/24/17 06:58 INR 2.1 05/24/17 06:58 APTT 39 SECONDS (21-34) H 05/20/17 19:08 - Constitutional Appears: Non-toxic - Respiratory Exam Respiratory Exam: Clear to Ausculation Bilateral - Cardiovascular Exam Cardiovascular Exam: RRR - GI/Abdominal Exam GI & Abdominal Exam: Distended, Soft, Normal Bowel Sounds. absent: Tenderness Additional comments: + ascites - Extremities Exam Extremities Exam: Pedal Edema - Neurological Exam Neurological Exam: Alert Assessment and Plan (1) Cellulitis of right leg without foot Status: Acute (2) Hyponatremia Status: Acute (3) Sepsis Status: Acute (4) Alcohol abuse Status: Acute (5) Anemia Status: Chronic (6) Atrial fibrillation Status: Chronic (7) Liver cirrhosis, alcoholic Assessment & Plan: AST, ALT- nl. TB 2.5 Status: Chronic (8) Ascites Assessment & Plan: s/p paracentesis.. Diuretics. Check lytes and weights. Status: Acute
[2017-05-26 12:02] LABS: ALBUMIN 2.4 g/dL (3.5-5.0); ALT/SGPT 31 U/L (21-72); AST/SGOT 57 U/L (17-59); BLOOD UREA NITROGEN 10 mg/dL (9-20); CALCIUM 7.3 mg/dl (8.6-10.4); GFR AFRICAN-AMERICAN > 60; GFR NON-AFRICAN AMERICAN > 60
[2017-05-26 12:03] LABS: BASO # 0.1 K/uL (0.0-0.2); BASO % 0.9 % (0.0-2.0); EOS # 0.6 K/uL (0.0-0.7); EOS % 7.4 % (0.0-4.0); HEMOGLOBIN 8.8 g/dL (12.0-18.0); LYMPH # 0.5 K/uL (1.0-4.3); LYMPH % 6.7 % (20.0-40.0); MEAN CELL VOLUME 88.8 fL (80.0-94.0); MEAN CORPUSCULAR HEMOGLOBIN 29.5 pg (27.0-31.0); MEAN CORPUSCULAR HGB CONC 33.2 g/dL (33.0-37.0); MEAN PLATELET VOLUME 8.4 fL (7.2-11.7); MONO # 1.7 K/uL (0.0-0.8); MONO % 21.6 % (0.0-10.0); NEUT % 63.4 % (50.0-75.0); NRBC % 0.1 % (0.0-2.0); PLATELET COUNT 218 K/uL (130-400); RBC 2.97 Mil/uL (4.40-5.90); RED CELL DISTRIBUTION WIDTH 20.9 % (11.5-14.5); WHITE BLOOD COUNT 7.9 K/uL (4.8-10.8)
[2017-05-26 12:10] LABS: ALB/GLOB RATIO 0.5 (1.0-2.1)
[2017-05-26 12:42] LABS: TOTAL CELLS COUNTED 100
[2017-05-26 12:44] LABS: ANISOCYTOSIS MODERATE; EOSINOPHIL 7 % (0-4); LYMPHOCYTE 9 % (20-40); MONOCYTE 19 % (0-10); NEUTROPHIL 65 % (50-75); PLATELET ESTIMATE NORMAL (NORMAL)
[2017-05-26 12:45] LABS: TARGET CELLS SLIGHT
--- NOTE | 2017-05-26 16:23 | CARD ---
APPROVED REPORT EKG Measurement Heart [id number] <Conclusion> Atrial fibrillation with rapid ventricular response Abnormal ECG
--- NOTE | 2017-05-26 18:43 | CP.PCM.PN ---
Subjective - Date & Time of Evaluation Date of Evaluation: 05/26/17 Time of Evaluation: 06:30 - Subjective Subjective: dictated Objective - Vital Signs/Intake and Output Vital Signs (last 24 hours): Temp Pulse Resp BP Pulse Ox 98.1 F 98 H 20 129/77 99 05/26/17 15:00 05/26/17 15:00 05/26/17 15:00 05/26/17 15:00 05/26/17 15:00 Intake and Output: 05/26/17 05/26/17 06:59 18:59 Intake Total 100 Output Total 615 Balance -515 - Medications Medications: Current Medications Acetaminophen (Tylenol 325mg Tab) 650 mg PO Q6 PRN PRN Reason: Temperature Albuterol Sulfate (Albuterol 0.083% Inhal Laura (2.5 Mg/3 Ml) Ud) 2.5 mg INH RQ4 [facility] Last Admin: 05/26/17 15:41 Dose: Not Given Aspirin (Ecotrin) 81 mg PO DAILY [facility] Last Admin: 05/26/17 10:59 Dose: 81 mg Diltiazem HCl (Cardizem Cd) 120 mg PO DAILY [facility] Last Admin: 05/26/17 11:06 Dose: 120 mg Diphenhydramine HCl (Benadryl) 25 mg IVP PRN PRN PRN Reason: Allergy symptoms Ferrous Sulfate (Feosol) 325 mg PO DAILY [facility] Last Admin: 05/26/17 10:58 Dose: 325 mg Fluticasone Propionate (Flonase) 1 spr STEPHEN DAILY [facility] Last Admin: 05/26/17 11:35 Dose: 1 spr Furosemide (Lasix) 40 mg IVP DAILY [facility] Last Admin: 05/26/17 10:59 Dose: 40 mg Guaifenesin/Dextromethorphan (Robitussin Dm) 5 ml PO Q4H PRN PRN Reason: Cough Piperacillin Sod/Tazobactam (Sod 3.375 gm/ Sodium Chloride) 100 mls @ 100 mls/ hr IVPB Q8H [facility] Last Admin: 05/26/17 18:36 Dose: 100 mls/hr Vancomycin/Sodium Chloride (Vancomycin 1 Gm/Ns 200 Ml) 1 gm in 200 mls @ 133 mls/hr IVPB Q12H [facility] Stop: 05/31/17 20:01 Lactic Acid (Lac-Hydrin 12% Lotion (225 G)) 0 gm EXT DAILY [facility] Last Admin: 05/26/17 11:05 Dose: 1 applic Lorazepam (Ativan) 1 mg IVP Q6H PRN PRN Reason: Symptoms of alcohol withdrawl Ondansetron HCl (Zofran Inj) 4 mg IVP Q6 PRN PRN Reason: Nausea/Vomiting Pantoprazole Sodium (Protonix Ec Tab) 40 mg PO DAILY [facility] Last Admin: 05/26/17 11:05 Dose: 40 mg Saccharomyces Boulardii (Florastor) 250 mg PO BID [facility] Last Admin: 05/26/17 18:36 Dose: 250 mg - Labs Labs: 05/26/17 11:44 05/26/17 11:44 PT 23.0 SECONDS (9.7-12.2) H 05/26/17 11:44 INR 2.0 05/26/17 11:44 APTT 39 SECONDS (21-34) H 05/20/17 19:08 Assessment and Plan (1) Streptococcal septicemia Status: Acute (2) Cellulitis of right leg without foot Status: Acute
[2017-05-26] MEDS ORDERED: Albumin Human 25% (12.5 gm/50 ml) IV ONE (20:05)
[2017-05-26] MEDS: Vancomycin 1 gm/NS 200 ml 1 GM/200 ML BAG IVPB SCH (20:25)
[2017-05-27] MEDS: Albuterol 0.083% Inhal Sol (2.5 mg/3 mL) UD INH SCH ×6 (00:35→19:14)
--- NOTE | 2017-05-27 02:34 | PN ---
DATE: 05/26/2017 SUBJECTIVE: Male nurse tells me that they had removed some peritoneal fluid, but he is not sure if it was sent for test as they were asked later on. PHYSICAL EXAMINATION: VITAL SIGNS: T-max is 98.1, pulse 98, blood pressure 129/77, respirations are 20. HEENT: Head is atraumatic. NECK: Supple. LUNGS: Clear. Decreased breath sounds. HEART: S1 and S2 regular. ABDOMEN: Remains prominent still. EXTREMITIES: Right leg has lot of edema, cellulitis and is doubled size of the left leg. Left leg also has edema. He also has stasis dermatitis. LABORATORY DATA: White count is 7.9, hemoglobin 8.8. His vanco trough was high this morning and IgG 1.5, mycoplasma and chemistry shows his BUN is 10, creatinine 0.8. I have decrease the vancomycin to 1 g q. 12 for now and will follow as the trough was high and so we will give lesser dose. He had beta strep and MRSA in wound and he has strep group B agalactiae septicemia most likely secondary to the cellulitis of the leg, which has stasis dermatitis, cellulitis, swelling, and we had ordered an echocardiogram. Echo report on 05/21/2017, was read as normal. He has mildly dilated normal LV function, LV diastolic dysfunction grade 1, normal aortic mitral and tricuspid valve, trace MR, no pericardial effusions. There is no vegetation reported. We will continue with the group B strep treatment and MRSA treatment for now. He has been on this treatment already, today is 24th, 5 days and will need repeat blood cultures to follow up on the septicemia. We will follow. Jana Bloom MD
[2017-05-27] MEDS: Piperacillin/Tazobact 3.375 GM in Sodium Chloride 0.9% 100 ML IVPB SCH ×3 (03:33→18:31)
[2017-05-27 07:30] LABS: ALB/GLOB RATIO 0.5 (1.0-2.1); ALBUMIN 2.2 g/dL (3.5-5.0); AST/SGOT 52 U/L (17-59); BLOOD UREA NITROGEN 11 mg/dL (9-20); CALCIUM 7.3 mg/dl (8.6-10.4); GFR AFRICAN-AMERICAN > 60; GFR NON-AFRICAN AMERICAN > 60; MAGNESIUM 1.4 mg/dL (1.6-2.3)
[2017-05-27 07:31] LABS: ALT/SGPT 28 U/L (21-72)
[2017-05-27 07:51] LABS: BASO # 0.1 K/uL (0.0-0.2); BASO % 1.5 % (0.0-2.0); EOS # 0.6 K/uL (0.0-0.7); EOS % 8.2 % (0.0-4.0); HEMOGLOBIN 8.1 g/dL (12.0-18.0); LYMPH # 1.8 K/uL (1.0-4.3); LYMPH % 23.2 % (20.0-40.0); MEAN CELL VOLUME 88.5 fL (80.0-94.0); MEAN CORPUSCULAR HEMOGLOBIN 30.1 pg (27.0-31.0); MEAN PLATELET VOLUME 8.2 fL (7.2-11.7); MONO # 1.1 K/uL (0.0-0.8); MONO % 13.4 % (0.0-10.0); NEUT # 4.2 K/uL (1.8-7.0); NEUT % 53.7 % (50.0-75.0); NRBC % 0.2 % (0.0-2.0); RBC 2.7 Mil/uL (4.40-5.90); RED CELL DISTRIBUTION WIDTH 20.6 % (11.5-14.5); WHITE BLOOD COUNT 7.9 K/uL (4.8-10.8)
[2017-05-27] MEDS: Vancomycin 1 gm/NS 200 ml 1 GM/200 ML BAG IVPB SCH ×2 (08:39→20:42)
--- NOTE | 2017-05-27 09:11 | CP.PCM.PN ---
Subjective - Date & Time of Evaluation Date of Evaluation: 05/27/17 Time of Evaluation: 09:07 - Subjective Subjective: F/U cirrhosis More alert today. Denies abdom pain, fever, chills, SZ, LOC, EAST, cough, SZ Objective - Vital Signs/Intake and Output Vital Signs (last 24 hours): Temp Pulse Resp BP Pulse Ox 97.6 F 81 20 115/71 100 05/27/17 08:32 05/27/17 08:32 05/27/17 08:32 05/27/17 08:32 05/27/17 08:32 Intake and Output: 05/27/17 05/27/17 06:59 18:59 Intake Total 540 475 Output Total 400 325 Balance 140 150 - Medications Medications: Current Medications Acetaminophen (Tylenol 325mg Tab) 650 mg PO Q6 PRN PRN Reason: Temperature Albuterol Sulfate (Albuterol 0.083% Inhal Laura (2.5 Mg/3 Ml) Ud) 2.5 mg INH RQ4 [facility] Last Admin: 05/27/17 08:16 Dose: Not Given Aspirin (Ecotrin) 81 mg PO DAILY [facility] Last Admin: 05/26/17 10:59 Dose: 81 mg Diltiazem HCl (Cardizem Cd) 120 mg PO DAILY [facility] Last Admin: 05/26/17 11:06 Dose: 120 mg Diphenhydramine HCl (Benadryl) 25 mg IVP PRN PRN PRN Reason: Allergy symptoms Ferrous Sulfate (Feosol) 325 mg PO DAILY [facility] Last Admin: 05/26/17 10:58 Dose: 325 mg Furosemide (Lasix) 40 mg IVP DAILY [facility] Last Admin: 05/26/17 10:59 Dose: 40 mg Guaifenesin/Dextromethorphan (Robitussin Dm) 5 ml PO Q4H PRN PRN Reason: Cough Piperacillin Sod/Tazobactam (Sod 3.375 gm/ Sodium Chloride) 100 mls @ 100 mls/ hr IVPB Q8H [facility] Last Admin: 05/27/17 03:33 Dose: 100 mls/hr Vancomycin/Sodium Chloride (Vancomycin 1 Gm/Ns 200 Ml) 1 gm in 200 mls @ 133 mls/hr IVPB Q12H [facility] Stop: 05/31/17 20:01 Last Admin: 05/26/17 20:25 Dose: 133 mls/hr Lactic Acid (Lac-Hydrin 12% Lotion (225 G)) 0 gm EXT DAILY [facility] Last Admin: 05/26/17 11:05 Dose: 1 applic Lorazepam (Ativan) 1 mg IVP Q6H PRN PRN Reason: Symptoms of alcohol withdrawl Ondansetron HCl (Zofran Inj) 4 mg IVP Q6 PRN PRN Reason: Nausea/Vomiting Pantoprazole Sodium (Protonix Ec Tab) 40 mg PO DAILY [facility] Last Admin: 05/26/17 11:05 Dose: 40 mg Saccharomyces Boulardii (Florastor) 250 mg PO BID [facility] Last Admin: 05/26/17 18:36 Dose: 250 mg - Labs Labs: 05/27/17 07:06 05/27/17 07:06 PT 23.0 SECONDS (9.7-12.2) H 05/26/17 11:44 INR 2.0 05/26/17 11:44 APTT 39 SECONDS (21-34) H 05/20/17 19:08 - Constitutional Appears: Non-toxic - Respiratory Exam Respiratory Exam: Clear to Ausculation Bilateral - Cardiovascular Exam Cardiovascular Exam: RRR - GI/Abdominal Exam GI & Abdominal Exam: Distended, Soft, Normal Bowel Sounds. absent: Tenderness, Mass Additional comments: + umb hernia - Extremities Exam Extremities Exam: Pedal Edema - Neurological Exam Neurological Exam: Alert, Awake - Psychiatric Exam Psychiatric exam: Normal Mood Assessment and Plan (1) Cellulitis of right leg without foot Status: Acute (2) Hyponatremia Assessment & Plan: improving Status: Acute (3) Sepsis Status: Acute (4) Alcohol abuse Status: Acute (5) Anemia Assessment & Plan: chronic Status: Chronic (6) Atrial fibrillation Status: Chronic (7) Liver cirrhosis, alcoholic Status: Chronic (8) Ascites Assessment & Plan: Treat with diuretics. Check lytes and weights Status: Acute (9) Liver function abnormality Assessment & Plan: Chr alcoholic liver disease. AST/ALT are ok. TB is elevated. Check DB. I doubt alc hepatitis. Status: Acute
[2017-05-27] MEDS: diltiaZEM 120 mg/24 Hours CD Cap PO SCH (09:38)
[2017-05-27] MEDS: Pantoprazole 40 mg EC Tab PO SCH (09:38)
[2017-05-27] MEDS: Saccharomyces Boulardi 250 mg Cap PO SCH ×2 (09:38→18:31)
[2017-05-27] MEDS: Ammonium Lactate 12% Lotion (225 g) EXT SCH (09:40)
--- NOTE | 2017-05-27 12:40 | CP.PCM.PN ---
<Jaydon Concepcion - Last Filed: 05/27/17 18:13> Subjective - Date & Time of Evaluation Date of Evaluation: 05/27/17 Time of Evaluation: 09:40 - Subjective Subjective: Jaydon Meléndez Customer Service [id number] Patient seen and examined at bedside. Per nursing no acute events occurred overnight. The patient still reports left leg extremity pain. However the patient says his left upper quadrant pain gone away and he feels overall better. The patient denies shortness of breath, fevers, chills, nausea, vomiting, changes in vision, syncopal episodes, or any other complaints. Objective - Vital Signs/Intake and Output Vital Signs (last 24 hours): Temp Pulse Resp BP Pulse Ox 97.6 F 81 20 127/70 100 05/27/17 08:32 05/27/17 08:32 05/27/17 08:32 05/27/17 09:38 05/27/17 08:32 Intake and Output: 05/27/17 05/27/17 06:59 18:59 Intake Total 540 475 Output Total 400 325 Balance 140 150 - Medications Medications: Current Medications Acetaminophen (Tylenol 325mg Tab) 650 mg PO Q6 PRN PRN Reason: Temperature Albuterol Sulfate (Albuterol 0.083% Inhal Laura (2.5 Mg/3 Ml) Ud) 2.5 mg INH RQ4 [facility] Last Admin: 05/27/17 11:00 Dose: Not Given Aspirin (Ecotrin) 81 mg PO DAILY [facility] Last Admin: 05/27/17 09:38 Dose: 81 mg Diltiazem HCl (Cardizem Cd) 120 mg PO DAILY [facility] Last Admin: 05/27/17 09:38 Dose: 120 mg Diphenhydramine HCl (Benadryl) 25 mg IVP PRN PRN PRN Reason: Allergy symptoms Ferrous Sulfate (Feosol) 325 mg PO DAILY [facility] Last Admin: 05/27/17 09:49 Dose: 325 mg Furosemide (Lasix) 40 mg IVP DAILY [facility] Last Admin: 05/27/17 09:38 Dose: 40 mg Guaifenesin/Dextromethorphan (Robitussin Dm) 5 ml PO Q4H PRN PRN Reason: Cough Piperacillin Sod/Tazobactam (Sod 3.375 gm/ Sodium Chloride) 100 mls @ 100 mls/ hr IVPB Q8H [facility] Last Admin: 05/27/17 03:33 Dose: 100 mls/hr Vancomycin/Sodium Chloride (Vancomycin 1 Gm/Ns 200 Ml) 1 gm in 200 mls @ 133 mls/hr IVPB Q12H [facility] Stop: 05/31/17 20:01 Last Admin: 05/27/17 08:39 Dose: 133 mls/hr Lactic Acid (Lac-Hydrin 12% Lotion (225 G)) 0 gm EXT DAILY [facility] Last Admin: 05/27/17 09:40 Dose: 1 applic Lorazepam (Ativan) 1 mg IVP Q6H PRN PRN Reason: Symptoms of alcohol withdrawl Ondansetron HCl (Zofran Inj) 4 mg IVP Q6 PRN PRN Reason: Nausea/Vomiting Pantoprazole Sodium (Protonix Ec Tab) 40 mg PO DAILY [facility] Last Admin: 05/27/17 09:38 Dose: 40 mg Saccharomyces Boulardii (Florastor) 250 mg PO BID [facility] Last Admin: 05/27/17 09:38 Dose: 250 mg - Labs Labs: 05/27/17 07:06 05/27/17 07:06 PT 23.0 SECONDS (9.7-12.2) H 05/26/17 11:44 INR 2.0 05/26/17 11:44 APTT 39 SECONDS (21-34) H 05/20/17 19:08 - Head Exam Head Exam: ATRAUMATIC, NORMAL INSPECTION, NORMOCEPHALIC - Eye Exam Eye Exam: EOMI, Normal appearance, PERRL. absent: Periorbital tenderness Pupil Exam: NORMAL ACCOMODATION, PERRL. absent: Irregular, Unequal - ENT Exam ENT Exam: Mucous Membranes Moist, Normal Exam, Normal Oropharynx - Neck Exam Neck Exam: Full ROM. absent: Lymphadenopathy, Thyromegaly - Respiratory Exam Respiratory Exam: Clear to Ausculation Bilateral, NORMAL BREATHING PATTERN. absent: Chest Wall Tenderness, Prolonged Expiratory Phase, Respiratory Distress - Cardiovascular Exam Cardiovascular Exam: REGULAR RHYTHM, RRR, +S1, +S2. absent: Gallop, Rubs - GI/Abdominal Exam GI & Abdominal Exam: Distended, Soft, Normal Bowel Sounds. absent: Tenderness - Back Exam Back Exam: NORMAL INSPECTION. absent: CVA tenderness (L), CVA tenderness (R), paraspinal tenderness - Neurological Exam Neurological Exam: Alert, Awake, CN II-XII Intact, Oriented x3 - Psychiatric Exam Psychiatric exam: Normal Affect, Normal Mood - Skin Skin Exam: Dry, Intact, Normal Color, Warm Assessment and Plan - Assessment and Plan (Free Text) Plan: Sepsis Bactermia RLE Cellulitis * On admission: Febrile, tachycardiac, leukocytosis with left shift, lactate 2.5 -> 1.3 * Tmax: 99.9F * Continue Zosyn 3.375gram IV Q8H (active since 05/21/17) * Vancomycin changed to 1gram IVPB Q24H (active since * Follow-up Vancomycin trough 15:30 on 05/27/17 * Blood Culture (05/20/17): Strep Agalactiae Final result * Wound Culture (05/21/17): Strep Agalactiae Group B, Staphylococcus Aureus * Urine culture (05/20/17): no growth * Throat Culture (05/21/17): no beta group A isolatedm, negative * Stool culture negative Shigella, Campylobacter. RLE Cellulitis with Chronic Venous Stasis * Right LE weeping puncture wound on admission -->no wound appreciated now on physical exam. * Wound culture: B-hemolytic strep Group B and MRSA. 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 * ASA 81 mg PO daily Hyponatremia SIADH * No intervention at this time.. * Serum osmolality: 281 * Urine osmolality:722 * Urine Random Sodium:7 Elevated T-bili -2.4 Today. Trending down -Most likely secondary to alcohol abuse. -Will continue to monitor. Diarrhea * Patient denies any more episodes. Will continue to monitor. * CT abdomen/Pelvis PO contrast shows nonobstructing left renal calculus, umbilical hernia, and cirrhotic liver Hypomagnesmia /hypokalemia -Unable to Magnesium replete today due to shortage in the hospital. Will monitor and follow up with laboratory in the [place]. Will continue to monitor with serial CMP's. -Potassium repleted. Will continue to monitor with serial CMP's. Anemia * Likely secondary to chronic disease * Baseline H/H: 01/25, on admission: 12/23.8 * Reticulocyte: 3.5 * Iron: 25 * TIBC: 266 * %saturation: 9 * Ferriti: 28.5 * Retic count:3.5 * Folate: 705 * B12: 7.3 Hx of Atrial Fibrillation * Not on any anticoagulation (Hx of varices and medication non-compliance) * CHADS-Vasc score of 1: Low-moderate risk and should consider antiplatelet or anticoagulation therapy * EKG showed a-fib with RVR following * Continue on Cardizem Alcohol Decompensated Cirrhosis * MELD 20 on admission * Hepatitis panel negative 11/10/16 * AFP 2.3 11/10/16 * INR 2.1 most likely 2/2 to liver failure. * Ammonia 34 Continue Lactulose 20mg POqHS * CT abdomen/Pelvis PO contrast shows nonobstructing left renal calculus, umbilical hernia, and cirrhotic liver * Fluid restriction (1.5 Liters a day) * S/P Parcentesis Day #1. Will continue to monitor. Hx Alcohol Abuse * Alcohol Serum <10 * UDS negative * Patient is not in acute withdrawal Prophylactic Measure * GI PPX: Protonix 40mg IVP daily * Contraindicated DVT PPx for history of varices, and downtrending hemoglobin * SCD c/i * Florastor 250mg PO BID Disposition: * Completed POLST Form. * DNR/DNI * Will follow up with Dr. Barbosa for rec's in regards to referral to Liver Clinic. <Serafin Reaves - Last Filed: 05/27/17 18:24> Objective - Vital Signs/Intake and Output Vital Signs (last 24 hours): Temp Pulse Resp BP Pulse Ox 97.8 F 76 20 138/83 98 05/27/17 15:40 05/27/17 15:40 05/27/17 15:40 05/27/17 15:40 05/27/17 15:40 Intake and Output: 05/27/17 05/27/17 06:59 18:59 Intake Total 540 1025 Output Total 400 325 Balance 140 700 - Medications Medications: Current Medications Acetaminophen (Tylenol 325mg Tab) 650 mg PO Q6 PRN PRN Reason: Temperature Albuterol Sulfate (Albuterol 0.083% Inhal Laura (2.5 Mg/3 Ml) Ud) 2.5 mg INH RQ4 [facility] Last Admin: 05/27/17 16:34 Dose: Not Given Aspirin (Ecotrin) 81 mg PO DAILY [facility] Last Admin: 05/27/17 09:38 Dose: 81 mg Diltiazem HCl (Cardizem Cd) 120 mg PO DAILY [facility] Last Admin: 05/27/17 09:38 Dose: 120 mg Diphenhydramine HCl (Benadryl) 25 mg IVP PRN PRN PRN Reason: Allergy symptoms Ferrous Sulfate (Feosol) 325 mg PO DAILY [facility] Last Admin: 05/27/17 09:49 Dose: 325 mg Furosemide (Lasix) 40 mg IVP DAILY [facility] Last Admin: 05/27/17 09:38 Dose: 40 mg Guaifenesin/Dextromethorphan (Robitussin Dm) 5 ml PO Q4H PRN PRN Reason: Cough Piperacillin Sod/Tazobactam (Sod 3.375 gm/ Sodium Chloride) 100 mls @ 100 mls/ hr IVPB Q8H [facility] Stop: 05/27/17 22:00 Last Admin: 05/27/17 11:30 Dose: 100 mls/hr Vancomycin/Sodium Chloride (Vancomycin 1 Gm/Ns 200 Ml) 1 gm in 200 mls @ 133 mls/hr IVPB Q12H [facility] Stop: 05/31/17 20:01 Last Admin: 05/27/17 08:39 Dose: 133 mls/hr Piperacillin Sod/Tazobactam Sod (Zosyn 3.375 Gm Iv Premix) 3.375 gm in 50 mls @ 100 mls/hr IVPB Q8H [facility] Lactic Acid (Lac-Hydrin 12% Lotion (225 G)) 0 gm EXT DAILY [facility] Last Admin: 05/27/17 09:40 Dose: 1 applic Lorazepam (Ativan) 1 mg IVP Q6H PRN PRN Reason: Symptoms of alcohol withdrawl Ondansetron HCl (Zofran Inj) 4 mg IVP Q6 PRN PRN Reason: Nausea/Vomiting Pantoprazole Sodium (Protonix Ec Tab) 40 mg PO DAILY [facility] Last Admin: 05/27/17 09:38 Dose: 40 mg Saccharomyces Boulardii (Florastor) 250 mg PO BID [facility] Last Admin: 05/27/17 09:38 Dose: 250 mg - Labs Labs: 05/27/17 07:06 05/27/17 07:06 PT 23.0 SECONDS (9.7-12.2) H 05/26/17 11:44 INR 2.0 05/26/17 11:44 APTT 39 SECONDS (21-34) H 05/20/17 19:08 Attending/Attestation - Attestation I have personally seen and examined this patient.: Yes I have fully participated in the care of the patient.: Yes I have reviewed all pertinent clinical information, including history, physical exam and plan: Yes Notes (Text): 05/27/17 18:15 Patient was seen and examined at 4:00 PM 05/27/17 667 A Currently FULL ROS Abdominal Pain is better and nonexistant since paracentesis on 05/26/17 Breathing much better after the paracentesis and no wheezing. NO coughing Complains of chronic left lateral upper thigh pain s/p injury as a younger man: states that this is unchanged and not new Moving bowels and no blood/black stools and well formed NO burning pain with urination NO chest pain NO new changes in vision NO new changes in hearing NO paresthesias NO headaches NO n/v and tolerating diet NO dysphagia/odynophagia Exam: General: AAOx3, NAD HEENT: EOMI, PERRLA, NCA, NO pharyngeal erythema/exudate, NO cervical/ supraclavicular/submandibular lymphadenopathy, NO thyromegaly, Nasal Turbinates are nonerythematous/nonedematous, Oral mucosa is moist and has poor dentition Cardio: NS1 and NS2, NO M/R/G Resp: CTA B/L, NO R/R/W GI: BSX4, Softer and NONtender (compared to prior exams), Liver and Spleen could not be palpated secondary to distention, NO guarding/rebound tenderness, Umbilical Hernia which is compressable/nontender/not warm/nonerythematous Ext: Pulses B/L UE are strong and equal, Pulses B/L LE are palpable but weaker than the UE, Capillary Refill is 2 seconds, 2+ Pitting edema B/L LE, Right Leg greater circumference compared to the Left Leg, Right Lower Leg with browner skin coloration compared to the Left Lower Leg is normal skin color to rest of body, Patchy areas of hyperkeratosis throughout the Right Lower Leg, NO open wounds noted on Right Lower Leg, NO warmth and NO erythema noted on Right Anterior Lower Leg that was demarcated with blue ink, Deformed toes bilateral feet. Neuro: CN II through XII are grossly intact Assessment/Plan 1) Sepsis Bactermia RLE Cellulitis * On admission: Febrile, tachycardiac, leukocytosis with left shift, lactate 2.5 -> 1.3 * Gentamicin Sulfate 8-mg IVPB Q 8H (active since 05/22/17 through 05/24/17) * Zosyn 3.375 IV Q Q8H (active since 05/21/17) * Vancomycin (active since 05/22/17) was increased to 2 grams IV Q12H on 05/24/17 for goal trough of 15. Vanco Trough elevated at 21+ on 05/26/17 therefore reduced to 1 gm IV Q12H * Follow-up Vancomycin trough 5:30 AM 05/28/17 * Tamiflu 75mg PO BID (05/21/17 through 05/26/17) * Procalcitonin 3.93 * Blood Culture (05/20/17): Strep Agalactiae Group B X2 * F/U Repeat Blood Culture 05/27/17 * Wound Culture (05/21/17): Strep Agalactiae Group B, Staphylococcus Aureus * Urine culture (05/20/17): no growth * Throat Culture (05/21/17): no beta group A isolated 2) RLE Cellulitis with Chronic Venous Stasis * Right LE weeping puncture wound on admission -->improved and not noted on exam 05/26/17 * Wound Culture (05/21/17): Strep Agalactiae Group B, MRSA * Venous doppler reveals no DVT bilaterally but 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 * ASA 81 mg PO daily * Lasix 40 mg IV 1x/day 3) Hyponatremia SIADH * 127 on admission and is currently stable * Serum osmolality: 281 * Urine osmolality * Urine Random Sodium * Fluid Restriction: 1200mL 4) Diarrhea * Stool Culture and O&P 05/21/17 are NEGATIVE * Diarrhea has resolved 5) Anemia * Likely secondary to chronic disease * Baseline H/H: 01/25, on admission: 12/23.8 * Reticulocyte: 3.5 * Iron: 25 * TIBC: 266 * %saturation: 9 * Ferritin: 28.5 * Retic count:3.5 * Folate: 705 * B12: 7.3 * Ferrous Sulfate 325 mg PO 1x/day 6) Hx of Atrial Fibrillation * Not on any anticoagulation (Hx of varices and medication non-compliance) and because his INR is 2+ (due to the Liver Failure) * Diltiazem CD 120 mg PO 1x/day 7) Alcohol Decompensated Cirrhosis * MELD 20 on admission * Discriminant Function is 63.1 * Hepatitis panel negative 11/10/16 * AFP 2.3 11/10/16 * Ammonia 34 on admission * CT Abdmon/Pelvis 05/23/17: cirrhotic liver without focal hepatic mass, ascites and anasarca, nonobstructing left renal calculus, umbilical hernia containing fluid and omentum without bowel * CT Chest 05/23/17: no infiltrate/effusion, ascites, hepatic cirrhosis, left upper pole renal hyerdense cyst * U/S Abdomen 05/23/17: cirrhosis, ascites, thickened gallbladder wall, bilateral cortical renal cysts * Extensive conversation with patient and ex- 05/25/17 about poor prognosis of his liver failure * GI Dr. Barbosa spoke with [facility] at [facility] and starting steroids is NOT recommended and patient is poor candidate for liver transplant considering his questionable continued alcohol use and homelessness. F/U with [facility] at [facility] as an outpatient. * 05/26/17: paracentesis by IR Dr. Romero and 1 liter of fluid removed with significant improvement in patient abdominal pain and breathing. F/U peritoneal fluid culture and cytology 8) Hx Alcohol Abuse * Alcohol Serum <10 * UDS negative * Patient is not in acute withdrawal 9). Hypomagnesemia * Given Magnesium Sulfate 1 gm x 2 on 05/23/17 and 05/24/17 but could not be given on 05/25/17 due to lack of Magnesium Sulfate in pharmacy * Magnesium 1.4 on 05/27/17 and 2 bags of Mag Sulfate ordered 10) Prophylactic Measure * Lac Hydrin 12% lotion bilateral legs daily * Zofran 4 mg IV Q6H PRN N/V * Protonix 40 mg PO 1x/day * Florastor 250 mg PO 2x/day * Duoneb 05/25/17: Palliative Care Nurse Katheryn met with patient and explained poor prognosis and I subsequently had same conversation with patient and his ex- . Patient has decided on DNR/DNI and POLST has been completed and placed in chart. 05/26/17: ANAND Barbosa spoke with [facility] at [facility] and starting steroids is NOT recommended and patient is poor candidate for liver transplant considering his questionable continued alcohol use and homelessness. F/U with [facility] at [facility] as an outpatient. Serafin Reaves D.O.
[2017-05-27] MEDS: Magnesium Sulfate 1 gm in D5W 1 GM/100 ML BAG IVPB SCH ×2 (19:00→20:00)
[2017-05-28] MEDS: Albuterol 0.083% Inhal Sol (2.5 mg/3 mL) UD INH SCH ×3 (00:11→16:01)
[2017-05-28] MEDS: Magnesium Sulfate 1 gm in D5W 1 GM/100 ML BAG IVPB SCH ×2 (00:34→01:58)
[2017-05-28] MEDS: Piperacill/Tazo 3.375gm in Dex 3.375 GM/50 ML BAG IVPB SCH ×3 (03:47→19:00)
[2017-05-28 08:32] LABS: BASO # 0.1 K/uL (0.0-0.2); HEMOGLOBIN 9.1 g/dL (12.0-18.0); NRBC % 0.1 % (0.0-2.0); RBC 2.96 Mil/uL (4.40-5.90)
[2017-05-28] MEDS: Vancomycin 1 gm/NS 200 ml 1 GM/200 ML BAG IVPB SCH ×2 (08:38→21:16)
[2017-05-28 08:41] LABS: ALBUMIN 2.4 g/dL (3.5-5.0); ALT/SGPT 27 U/L (21-72); AST/SGOT 56 U/L (17-59); BLOOD UREA NITROGEN 12 mg/dL (9-20); CALCIUM 7.4 mg/dl (8.6-10.4); GFR AFRICAN-AMERICAN > 60; GFR NON-AFRICAN AMERICAN > 60
[2017-05-28 08:47] LABS: ALB/GLOB RATIO 0.5 (1.0-2.1)
[2017-05-28 09:16] LABS: BASO % 1.4 % (0.0-2.0); EOS # 0.6 K/uL (0.0-0.7); EOS % 7.3 % (0.0-4.0); LYMPH # 2.1 K/uL (1.0-4.3); LYMPH % 26.5 % (20.0-40.0); MEAN CELL VOLUME 88.6 fL (80.0-94.0); MEAN CORPUSCULAR HEMOGLOBIN 30.6 pg (27.0-31.0); MEAN CORPUSCULAR HGB CONC 34.6 g/dL (33.0-37.0); MEAN PLATELET VOLUME 8.5 fL (7.2-11.7); MONO # 1.2 K/uL (0.0-0.8); MONO % 15.3 % (0.0-10.0); NEUT # 3.9 K/uL (1.8-7.0); NEUT % 49.5 % (50.0-75.0); RED CELL DISTRIBUTION WIDTH 20.5 % (11.5-14.5); WHITE BLOOD COUNT 7.8 K/uL (4.8-10.8)
[2017-05-28] MEDS: diltiaZEM 120 mg/24 Hours CD Cap PO SCH (09:27)
[2017-05-28] MEDS: Saccharomyces Boulardi 250 mg Cap PO SCH ×2 (09:28→21:09)
[2017-05-28] MEDS: Pantoprazole 40 mg EC Tab PO SCH (09:28)
[2017-05-28] MEDS: Ammonium Lactate 12% Lotion (225 g) EXT SCH (09:33)
--- NOTE | 2017-05-28 10:47 | US ---
Date of Procedure: 05/26/2017 PROCEDURE: Ultrasound-guided paracentesis, CPT 69820 Medications: 7 cc 1% Lidocaine HISTORY: Ascites, abdominal pain, cirrhosis TECHNIQUE: Following informed consent , the patient was placed supine on the stretcher and the site was marked. A limited abdominal ultrasound was performed that showed a large amount of intra-abdominal fluid. Procedural time out was called and the Pt's abdomen was marked and prepped and draped in the usual sterile fashion. Ultrasound-guided large volume paracentesis performed. A total of 800 cc of straw colored fluid was removed without complication. IMPRESSION: Ultrasound-guided paracentesis.
--- NOTE | 2017-05-28 11:31 | CP.PCM.PN ---
Subjective - Date & Time of Evaluation Date of Evaluation: 05/28/17 Time of Evaluation: 11:28 - Subjective Subjective: Denies abdominal pain Hyponatremic + Ascites. Paracentesis done, fluid lab values not available Weights not recorded Objective - Vital Signs/Intake and Output Vital Signs (last 24 hours): Temp Pulse Resp BP Pulse Ox 98.0 F 82 20 129/84 99 05/28/17 08:15 05/28/17 08:15 05/28/17 08:15 05/28/17 09:28 05/28/17 08:15 Intake and Output: 05/28/17 05/28/17 06:59 18:59 Intake Total 1080 Output Total 1500 Balance -420 - Medications Medications: Current Medications Albuterol Sulfate (Albuterol 0.083% Inhal Laura (2.5 Mg/3 Ml) Ud) 2.5 mg INH RQ4 [facility] Last Admin: 05/28/17 04:27 Dose: Not Given Aspirin (Ecotrin) 81 mg PO DAILY [facility] Last Admin: 05/28/17 09:28 Dose: 81 mg Diltiazem HCl (Cardizem Cd) 120 mg PO DAILY [facility] Last Admin: 05/28/17 09:27 Dose: 120 mg Diphenhydramine HCl (Benadryl) 25 mg IVP PRN PRN PRN Reason: Allergy symptoms Ferrous Sulfate (Feosol) 325 mg PO DAILY [facility] Last Admin: 05/28/17 09:28 Dose: 325 mg Furosemide (Lasix) 40 mg IVP DAILY [facility] Last Admin: 05/28/17 09:28 Dose: 40 mg Guaifenesin/Dextromethorphan (Robitussin Dm) 5 ml PO Q4H PRN PRN Reason: Cough Vancomycin/Sodium Chloride (Vancomycin 1 Gm/Ns 200 Ml) 1 gm in 200 mls @ 133 mls/hr IVPB Q12H [facility] Stop: 05/31/17 20:01 Last Admin: 05/28/17 08:38 Dose: 133 mls/hr Piperacillin Sod/Tazobactam Sod (Zosyn 3.375 Gm Iv Premix) 3.375 gm in 50 mls @ 100 mls/hr IVPB Q8H [facility] Last Admin: 05/28/17 03:47 Dose: 100 mls/hr Lactic Acid (Lac-Hydrin 12% Lotion (225 G)) 0 gm EXT DAILY [facility] Last Admin: 05/28/17 09:33 Dose: 1 applic Lorazepam (Ativan) 1 mg IVP Q6H PRN PRN Reason: Symptoms of alcohol withdrawl Ondansetron HCl (Zofran Inj) 4 mg IVP Q6 PRN PRN Reason: Nausea/Vomiting Pantoprazole Sodium (Protonix Ec Tab) 40 mg PO DAILY [facility] Last Admin: 05/28/17 09:28 Dose: 40 mg Saccharomyces Boulardii (Florastor) 250 mg PO BID [facility] Last Admin: 05/28/17 09:28 Dose: 250 mg - Labs Labs: 05/28/17 08:20 05/28/17 08:20 PT 23.0 SECONDS (9.7-12.2) H 05/26/17 11:44 INR 2.0 05/26/17 11:44 APTT 39 SECONDS (21-34) H 05/20/17 19:08 - Constitutional Appears: Chronically Ill - Head Exam Head Exam: NORMOCEPHALIC - Eye Exam Eye Exam: Scleral icterus - Respiratory Exam Respiratory Exam: NORMAL BREATHING PATTERN - GI/Abdominal Exam GI & Abdominal Exam: Distended, Soft. absent: Tenderness Additional comments: Nontender nonreducible umbilical hernia Ascites - Extremities Exam Additional comments: left leg discolored with chronic venous stasis changes Assessment and Plan (1) Ascites Assessment & Plan: Due to alcoholic cirrhosis Rec: Diuresis. Daily weights Status: Acute (2) Hyponatremia Assessment & Plan: Rec: Fluid restrict. Monitor Na Status: Acute (3) Streptococcal septicemia Assessment & Plan: Management per primary medical team Status: Acute (4) Alcoholic liver disease Assessment & Plan: Alcoholic cirrhosis with ascites and pancytopenia. 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 No need for endoscopic workup at present time. Status: Chronic
[2017-05-28] MEDS ORDERED: Magnesium Hydroxide Susp 30 ml UD PO ONE (15:00)
--- NOTE | 2017-05-28 18:25 | CP.PCM.PN ---
<Jaydon Concepcion - Last Filed: 05/28/17 19:08> Subjective - Date & Time of Evaluation Date of Evaluation: 05/28/17 Time of Evaluation: 06:25 - Subjective Subjective: Jaydon Meléndez Hand Drawer In-[id number] Patient seen and examined at bedside. Per nursing no acute events occurred overnight. The patient still reports left leg extremity pain. The patient is also reporting a reproducible left costal rib pain. The patient denies shortness of breath, fevers, chills, nausea, vomiting, changes in vision, syncopal episodes, or any other complaints. Objective - Vital Signs/Intake and Output Vital Signs (last 24 hours): Temp Pulse Resp BP Pulse Ox 97.6 F 84 20 126/79 100 05/28/17 15:49 05/28/17 15:49 05/28/17 15:49 05/28/17 15:49 05/28/17 15:49 Intake and Output: 05/28/17 05/28/17 06:59 18:59 Intake Total 1080 Output Total 1500 Balance -420 - Medications Medications: Current Medications Aspirin (Ecotrin) 81 mg PO DAILY [facility] Last Admin: 05/28/17 09:28 Dose: 81 mg Diltiazem HCl (Cardizem Cd) 120 mg PO DAILY [facility] Last Admin: 05/28/17 09:27 Dose: 120 mg Diphenhydramine HCl (Benadryl) 25 mg IVP PRN PRN PRN Reason: Allergy symptoms Ferrous Sulfate (Feosol) 325 mg PO DAILY [facility] Last Admin: 05/28/17 09:28 Dose: 325 mg Furosemide (Lasix) 40 mg IVP DAILY [facility] Last Admin: 05/28/17 09:28 Dose: 40 mg Guaifenesin/Dextromethorphan (Robitussin Dm) 5 ml PO Q4H PRN PRN Reason: Cough Vancomycin/Sodium Chloride (Vancomycin 1 Gm/Ns 200 Ml) 1 gm in 200 mls @ 133 mls/hr IVPB Q12H [facility] Stop: 05/31/17 20:01 Last Admin: 05/28/17 08:38 Dose: 133 mls/hr Piperacillin Sod/Tazobactam Sod (Zosyn 3.375 Gm Iv Premix) 3.375 gm in 50 mls @ 100 mls/hr IVPB Q8H [facility] Last Admin: 05/28/17 11:43 Dose: 100 mls/hr Lactic Acid (Lac-Hydrin 12% Lotion (225 G)) 0 gm EXT DAILY [facility] Last Admin: 05/28/17 09:33 Dose: 1 applic Lorazepam (Ativan) 1 mg IVP Q6H PRN PRN Reason: Symptoms of alcohol withdrawl Ondansetron HCl (Zofran Inj) 4 mg IVP Q6 PRN PRN Reason: Nausea/Vomiting Pantoprazole Sodium (Protonix Ec Tab) 40 mg PO DAILY [facility] Last Admin: 05/28/17 09:28 Dose: 40 mg Saccharomyces Boulardii (Florastor) 250 mg PO BID [facility] Last Admin: 05/28/17 09:28 Dose: 250 mg Spironolactone (Aldactone) 50 mg PO DAILY [facility] Last Admin: 05/28/17 12:12 Dose: 50 mg - Labs Labs: 05/28/17 08:20 05/28/17 08:20 PT 23.0 SECONDS (9.7-12.2) H 05/26/17 11:44 INR 2.0 05/26/17 11:44 APTT 39 SECONDS (21-34) H 05/20/17 19:08 - Head Exam Head Exam: ATRAUMATIC, NORMAL INSPECTION, NORMOCEPHALIC - Eye Exam Eye Exam: EOMI, Normal appearance, PERRL. absent: Periorbital tenderness Pupil Exam: NORMAL ACCOMODATION, PERRL. absent: Mydriatic - ENT Exam ENT Exam: Mucous Membranes Moist, Normal Exam, Normal Oropharynx - Neck Exam Neck Exam: Full ROM, Normal Inspection. absent: Lymphadenopathy - Respiratory Exam Respiratory Exam: Clear to Ausculation Bilateral, NORMAL BREATHING PATTERN. absent: Chest Wall Tenderness, Prolonged Expiratory Phase, Wheezes, Respiratory Distress - Cardiovascular Exam Cardiovascular Exam: REGULAR RHYTHM, +S1, +S2 - GI/Abdominal Exam GI & Abdominal Exam: Tenderness, Normal Bowel Sounds. absent: Guarding, Soft, Mass, Rebound - Extremities Exam Extremities Exam: Pedal Edema - Back Exam Back Exam: NORMAL INSPECTION. absent: CVA tenderness (L), CVA tenderness (R), paraspinal tenderness - Neurological Exam Neurological Exam: Alert, Awake, CN II-XII Intact, Oriented x3 - Psychiatric Exam Psychiatric exam: Normal Affect, Normal Mood - Skin Skin Exam: Dry, Intact Additional comments: Right lower extremity swelling improved. Assessment and Plan - Assessment and Plan (Free Text) Plan: Sepsis Bactermia RLE Cellulitis * On admission: Febrile, tachycardiac, leukocytosis with left shift, lactate 2.5 -> 1.3 * Tmax: 99.9F * Continue Zosyn 3.375gram IV Q8H (active since 05/21/17) * Vancomycin changed to 1gram IVPB Q12H * Follow-up Vancomycin trough 15.2. Will keep current dose. Will continue to monitor. * Blood Culture (05/20/17): Strep Agalactiae Final result * Wound Culture (05/21/17): Strep Agalactiae Group B, Staphylococcus Aureus * Urine culture (05/20/17): no growth * Throat Culture (05/21/17): no beta group A isolatedm, negative * Stool culture negative Shigella, Campylobacter. RLE Cellulitis with Chronic Venous Stasis * Right LE weeping puncture wound on admission -->no wound appreciated now on physical exam. * Leg improving in comparison to initial presentation. Will continue to monitor. * Wound culture: B-hemolytic strep Group B and MRSA. 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 * ASA 81 mg PO daily Hyponatremia SIADH * No intervention at this time.. * Serum osmolality: 281 * Urine osmolality:722 * Urine Random Sodium:7 Elevated T-bili -3.2Today. Trending down -Most likely secondary to alcohol abuse. -Will continue to monitor. Constipation. * Milk of magnesia added on. Will continue to monnitor. * CT abdomen/Pelvis PO contrast shows nonobstructing left renal calculus, umbilical hernia, and cirrhotic liver Hypomagnesmia /hypokalemia -Unable to Magnesium replete today due to shortage in the hospital. Will monitor and follow up with laboratory in the A.M. Will continue to monitor with serial CMP's. -Will continue to monitor with serial CMP's. Anemia * Likely secondary to chronic disease * Baseline H/H: 01/25, on admission: 12/23.8 * Reticulocyte: 3.5 * Iron: 25 * TIBC: 266 * %saturation: 9 * Ferriti: 28.5 * Retic count:3.5 * Folate: 705 * B12: 7.3 Hx of Atrial Fibrillation * Not on any anticoagulation (Hx of varices and medication non-compliance) * CHADS-Vasc score of 1: Low-moderate risk and should consider antiplatelet or anticoagulation therapy * EKG showed a-fib with RVR following * Continue on Cardizem Alcohol Decompensated Cirrhosis * MELD 20 on admission * Hepatitis panel negative 11/10/16 * AFP 2.3 11/10/16 * Ammonia 50 Another dose of Lactulose given today. * CT abdomen/Pelvis PO contrast shows nonobstructing left renal calculus, umbilical hernia, and cirrhotic liver * Fluid restriction (1 Liters a day) * S/P Parcentesis Day #2. Will continue to monitor. * Start Spironolactone * 90.2 kg today upon examination * Daily Weights. Please have nursing staff weigh him daily to track possible fluid retention. Hx Alcohol Abuse * Alcohol Serum <10 * UDS negative * Patient is not in acute withdrawal Prophylactic Measure * GI PPX: Protonix 40mg IVP daily * Contraindicated DVT PPx for history of varices, and downtrending hemoglobin * SCD c/i * Florastor 250mg PO BID Disposition: * Completed POLST Form. * DNR/DNI * Will follow up with Dr. Barbosa for rec's in regards to referral to Liver Clinic. <Serafin Reaves - Last Filed: 05/28/17 20:27> Objective - Vital Signs/Intake and Output Vital Signs (last 24 hours): Temp Pulse Resp BP Pulse Ox 97.6 F 84 20 126/79 100 05/28/17 15:49 05/28/17 15:49 05/28/17 15:49 05/28/17 15:49 05/28/17 15:49 - Medications Medications: Current Medications Aspirin (Ecotrin) 81 mg PO DAILY [facility] Last Admin: 05/28/17 09:28 Dose: 81 mg Diltiazem HCl (Cardizem Cd) 120 mg PO DAILY [facility] Last Admin: 05/28/17 09:27 Dose: 120 mg Diphenhydramine HCl (Benadryl) 25 mg IVP PRN PRN PRN Reason: Allergy symptoms Ferrous Sulfate (Feosol) 325 mg PO DAILY [facility] Last Admin: 05/28/17 09:28 Dose: 325 mg Furosemide (Lasix) 40 mg IVP DAILY [facility] Last Admin: 05/28/17 09:28 Dose: 40 mg Guaifenesin/Dextromethorphan (Robitussin Dm) 5 ml PO Q4H PRN PRN Reason: Cough Vancomycin/Sodium Chloride (Vancomycin 1 Gm/Ns 200 Ml) 1 gm in 200 mls @ 133 mls/hr IVPB Q12H [facility] Stop: 05/31/17 20:01 Last Admin: 05/28/17 08:38 Dose: 133 mls/hr Piperacillin Sod/Tazobactam Sod (Zosyn 3.375 Gm Iv Premix) 3.375 gm in 50 mls @ 100 mls/hr IVPB Q8H [facility] Last Admin: 05/28/17 11:43 Dose: 100 mls/hr Lactic Acid (Lac-Hydrin 12% Lotion (225 G)) 0 gm EXT DAILY [facility] Last Admin: 05/28/17 09:33 Dose: 1 applic Lorazepam (Ativan) 1 mg IVP Q6H PRN PRN Reason: Symptoms of alcohol withdrawl Ondansetron HCl (Zofran Inj) 4 mg IVP Q6 PRN PRN Reason: Nausea/Vomiting Pantoprazole Sodium (Protonix Ec Tab) 40 mg PO DAILY [facility] Last Admin: 05/28/17 09:28 Dose: 40 mg Saccharomyces Boulardii (Florastor) 250 mg PO BID [facility] Last Admin: 05/28/17 09:28 Dose: 250 mg Spironolactone (Aldactone) 50 mg PO DAILY [facility] Last Admin: 05/28/17 12:12 Dose: 50 mg - Labs Labs: 05/28/17 08:20 05/28/17 08:20 PT 23.0 SECONDS (9.7-12.2) H 05/26/17 11:44 INR 2.0 05/26/17 11:44 APTT 39 SECONDS (21-34) H 05/20/17 19:08 Attending/Attestation - Attestation I have personally seen and examined this patient.: Yes I have fully participated in the care of the patient.: Yes I have reviewed all pertinent clinical information, including history, physical exam and plan: Yes Notes (Text): 05/28/17 20:17 Patient was seen and examined at 12:45 PM 05/28/17 667 A Currently FULL ROS Complaine of lateral left rib pain lateral and slightly inferior to the left nipple that was reproducible on exam Abdominal Pain is better and nonexistant since paracentesis on 05/26/17 Breathing much better after the paracentesis and no wheezing. NO coughing Complains of chronic left lateral upper thigh pain s/p injury as a younger man: states that this is unchanged and not new Moving bowels and no blood/black stools and well formed NO burning pain with urination NO chest pain NO new changes in vision NO new changes in hearing NO paresthesias NO headaches NO n/v and tolerating diet NO dysphagia/odynophagia Exam: General: AAOx3, NAD HEENT: EOMI, PERRLA, NCA, NO pharyngeal erythema/exudate, NO cervical/ supraclavicular/submandibular lymphadenopathy, NO thyromegaly, Nasal Turbinates are nonerythematous/nonedematous, Oral mucosa is moist and has poor dentition Cardio: NS1 and NS2, NO M/R/G Resp: CTA B/L, NO R/R/W GI: BSX4, Softer and NONtender (compared to prior exams), Liver and Spleen could not be palpated secondary to distention, NO guarding/rebound tenderness, Umbilical Hernia which is compressable/nontender/not warm/nonerythematous Ext: Pulses B/L UE are strong and equal, Pulses B/L LE are palpable but weaker than the UE, Capillary Refill is 2 seconds, 2+ Pitting edema B/L LE, Right Leg greater circumference compared to the Left Leg, Right Lower Leg with browner skin coloration compared to the Left Lower Leg is normal skin color to rest of body, Patchy areas of hyperkeratosis throughout the Right Lower Leg, NO open wounds noted on Right Lower Leg, NO warmth and NO erythema noted on Right Anterior Lower Leg that was demarcated with blue ink, Deformed toes bilateral feet. Neuro: CN II through XII are grossly intact Assessment/Plan 1) Sepsis Bactermia RLE Cellulitis * On admission: Febrile, tachycardiac, leukocytosis with left shift, lactate 2.5 -> 1.3 * Gentamicin Sulfate 8-mg IVPB Q 8H (active since 05/22/17 through 05/24/17) * Zosyn 3.375 IV Q Q8H (active since 05/21/17) * Vancomycin (active since 05/22/17) was increased to 2 grams IV Q12H on 05/24/17 for goal trough of 15. Vanco Trough elevated at 21+ on 05/26/17 therefore reduced to 1 gm IV Q12H * Vancomycin trough 5:30 AM 05/28/17 is withing range of 15-20 * Tamiflu 75mg PO BID (05/21/17 through 05/26/17) * Procalcitonin 3.93 * Blood Culture (05/20/17): Strep Agalactiae Group B X2 * Repeat Blood Culture 05/27/17 is negative to date * Wound Culture (05/21/17): Strep Agalactiae Group B, Staphylococcus Aureus * Urine culture (05/20/17): no growth * Throat Culture (05/21/17): no beta group A isolated 2) RLE Cellulitis with Chronic Venous Stasis * Right LE weeping puncture wound on admission -->improved and not noted on exam 05/26/17 * Wound Culture (05/21/17): Strep Agalactiae Group B, MRSA * Venous doppler reveals no DVT bilaterally but 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 * ASA 81 mg PO daily * Lasix 40 mg IV 1x/day 3) Hypervolemic Hyponatremia SIADH * 127 on admission and is currently stable * Serum osmolality: 281 * Urine osmolality 722 * Urine Random Sodium 7 * Fluid Restriction: 1200mL 4) Diarrhea * Stool Culture and O&P 05/21/17 are NEGATIVE * Diarrhea has resolved 5) Anemia * Likely secondary to chronic disease * Baseline H/H: 01/25, on admission: 12/23.8 * Reticulocyte: 3.5 * Iron: 25 * TIBC: 266 * %saturation: 9 * Ferritin: 28.5 * Retic count:3.5 * Folate: 705 * B12: 7.3 * Ferrous Sulfate 325 mg PO 1x/day 6) Hx of Atrial Fibrillation * Not on any anticoagulation (Hx of varices and medication non-compliance) and because his INR is 2+ (due to the Liver Failure) * Diltiazem CD 120 mg PO 1x/day 7) Alcohol Decompensated Cirrhosis * MELD 20 on admission * Discriminant Function is 63.1 * Hepatitis panel negative 11/10/16 * AFP 2.3 11/10/16 * Ammonia 34 on admission and elevated to 54 and therefore Lactulose 20 gm PO x 1 dose given 05/28/17 * CT Abdmon/Pelvis 05/23/17: cirrhotic liver without focal hepatic mass, ascites and anasarca, nonobstructing left renal calculus, umbilical hernia containing fluid and omentum without bowel * CT Chest 05/23/17: no infiltrate/effusion, ascites, hepatic cirrhosis, left upper pole renal hyerdense cyst * U/S Abdomen 05/23/17: cirrhosis, ascites, thickened gallbladder wall, bilateral cortical renal cysts * Extensive conversation with patient and ex- 05/25/17 about poor prognosis of his liver failure * GI Dr. Barbosa spoke with [facility] at [facility] and starting steroids is NOT recommended and patient is poor candidate for liver transplant considering his questionable continued alcohol use and homelessness. F/U with [facility] at [facility] as an outpatient. * 05/26/17: paracentesis by IR Dr. Romero and 1 liter of fluid removed with significant improvement in patient abdominal pain and breathing. F/U peritoneal fluid culture and cytology * Follow Daily Weights and he is currently at 190.2 pounds 05/28/17 * Lasix 40 mg IV 1x/day * Spironolactone 50 mg PO 1x/day 8) Hx Alcohol Abuse * Alcohol Serum <10 * UDS negative * Patient is not in acute withdrawal 9). Hypomagnesemia * Given Magnesium Sulfate 1 gm x 2 on 05/23/17 and 05/24/17 but could not be given on 05/25/17 due to lack of Magnesium Sulfate in pharmacy * Magnesium 1.4 on 05/27/17 and 2 bags of Mag Sulfate ordered 05/28/17. F/U Mag level. 10) Prophylactic Measure * Lac Hydrin 12% lotion bilateral legs daily * Zofran 4 mg IV Q6H PRN N/V * Protonix 40 mg PO 1x/day * Florastor 250 mg PO 2x/day * Robitussin DM 5 ml PO Q6H PRN cough * Duoneb 05/25/17: Palliative Care Nurse Katheryn met with patient and explained poor prognosis and I subsequently had same conversation with patient and his ex- . Patient has decided on DNR/DNI and POLST has been completed and placed in chart. 05/26/17: ANAND Barbosa spoke with [facility] at [facility] and starting steroids is NOT recommended and patient is poor candidate for liver transplant considering his questionable continued alcohol use and homelessness. F/U with [facility] at [facility] as an outpatient. Serafin Reaves D.O.
--- NOTE | 2017-05-29 00:37 | CARD ---
APPROVED REPORT EKG Measurement Heart [id number] <Conclusion> Atrial fibrillation Abnormal ECG
[2017-05-29] MEDS: Piperacill/Tazo 3.375gm in Dex 3.375 GM/50 ML BAG IVPB SCH ×3 (03:06→19:25)
--- NOTE | 2017-05-29 07:17 | CP.PCM.PN ---
<EdgarBobby Augustine - Last Filed: 05/29/17 07:55> Subjective - Date & Time of Evaluation Date of Evaluation: 05/29/17 Time of Evaluation: 06:50 - Subjective Subjective: Medicine progress note for Dr. Charlene Reaves Patient seen and examined. Patient complaining of left leg pain and rib pain due to coughing. Objective - Vital Signs/Intake and Output Vital Signs (last 24 hours): Temp Pulse Resp BP Pulse Ox 98.7 F 94 H 20 141/84 96 05/28/17 23:25 05/29/17 01:00 05/28/17 23:25 05/29/17 04:00 05/28/17 23:25 Intake and Output: 05/29/17 05/29/17 06:59 18:59 Intake Total 250 Balance 250 - Medications Medications: Current Medications Aspirin (Ecotrin) 81 mg PO DAILY [facility] Last Admin: 05/28/17 09:28 Dose: 81 mg Diltiazem HCl (Cardizem Cd) 120 mg PO DAILY [facility] Last Admin: 05/28/17 09:27 Dose: 120 mg Diphenhydramine HCl (Benadryl) 25 mg IVP PRN PRN PRN Reason: Allergy symptoms Ferrous Sulfate (Feosol) 325 mg PO DAILY [facility] Last Admin: 05/28/17 09:28 Dose: 325 mg Furosemide (Lasix) 40 mg IVP DAILY [facility] Last Admin: 05/28/17 09:28 Dose: 40 mg Guaifenesin/Dextromethorphan (Robitussin Dm) 5 ml PO Q4H PRN PRN Reason: Cough Vancomycin/Sodium Chloride (Vancomycin 1 Gm/Ns 200 Ml) 1 gm in 200 mls @ 133 mls/hr IVPB Q12H [facility] Stop: 05/31/17 20:01 Last Admin: 05/28/17 21:16 Dose: 133 mls/hr Piperacillin Sod/Tazobactam Sod (Zosyn 3.375 Gm Iv Premix) 3.375 gm in 50 mls @ 100 mls/hr IVPB Q8H [facility] Last Admin: 05/29/17 03:06 Dose: 100 mls/hr Lactic Acid (Lac-Hydrin 12% Lotion (225 G)) 0 gm EXT DAILY [facility] Last Admin: 05/28/17 09:33 Dose: 1 applic Lorazepam (Ativan) 1 mg IVP Q6H PRN PRN Reason: Symptoms of alcohol withdrawl Ondansetron HCl (Zofran Inj) 4 mg IVP Q6 PRN PRN Reason: Nausea/Vomiting Pantoprazole Sodium (Protonix Ec Tab) 40 mg PO DAILY [facility] Last Admin: 05/28/17 09:28 Dose: 40 mg Saccharomyces Boulardii (Florastor) 250 mg PO BID [facility] Last Admin: 05/28/17 21:09 Dose: 250 mg Spironolactone (Aldactone) 50 mg PO DAILY [facility] Last Admin: 05/28/17 12:12 Dose: 50 mg - Labs Labs: 05/28/17 08:20 05/28/17 08:20 PT 23.0 SECONDS (9.7-12.2) H 05/26/17 11:44 INR 2.0 05/26/17 11:44 APTT 39 SECONDS (21-34) H 05/20/17 19:08 - Constitutional Appears: No Acute Distress - Head Exam Head Exam: ATRAUMATIC, NORMOCEPHALIC - Eye Exam Eye Exam: EOMI, Normal appearance - ENT Exam ENT Exam: Mucous Membranes Moist - Respiratory Exam Respiratory Exam: Clear to Ausculation Bilateral, NORMAL BREATHING PATTERN. absent: Rales, Rhonchi, Wheezes - Cardiovascular Exam Cardiovascular Exam: REGULAR RHYTHM, +S1, +S2 - GI/Abdominal Exam GI & Abdominal Exam: Tenderness, Normal Bowel Sounds. absent: Guarding - Extremities Exam Extremities Exam: Pedal Edema - Neurological Exam Neurological Exam: Alert, Awake, Oriented x3 - Psychiatric Exam Psychiatric exam: Normal Affect, Normal Mood - Skin Skin Exam: Dry, Warm Assessment and Plan - Assessment and Plan (Free Text) Plan: Sepsis Bactermia RLE Cellulitis * On admission: Febrile, tachycardiac, leukocytosis with left shift, lactate 2.5 -> 1.3 * Tmax: 99.9F * Continue Zosyn 3.375gram IV Q8H (active since 05/21/17) * Vancomycin changed to 1gram IVPB Q12H * Follow-up Vancomycin trough 15.2. Will keep current dose. Will continue to monitor. * Blood Culture (05/20/17): Strep Agalactiae Final result * Wound Culture (05/21/17): Strep Agalactiae Group B, Staphylococcus Aureus * Urine culture (05/20/17): no growth * Throat Culture (05/21/17): no beta group A isolatedm, negative * Stool culture negative Shigella, Campylobacter. RLE Cellulitis with Chronic Venous Stasis * Right LE weeping puncture wound on admission -->no wound appreciated now on physical exam. * Leg improving in comparison to initial presentation. Will continue to monitor. * Wound culture: B-hemolytic strep Group B and MRSA. 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 * ASA 81 mg PO daily Hyponatremia SIADH * No intervention at this time.. * Serum osmolality: 281 * Urine osmolality:722 * Urine Random Sodium:7 Elevated T-bili -3.2Today. Trending down -Most likely secondary to alcohol abuse. -Will continue to monitor. Constipation. * Milk of magnesia added on. Will continue to monnitor. * CT abdomen/Pelvis PO contrast shows nonobstructing left renal calculus, umbilical hernia, and cirrhotic liver Hypomagnesmia /hypokalemia -Unable to Magnesium replete today due to shortage in the hospital. Will monitor and follow up with laboratory in the A.M. Will continue to monitor with serial CMP's. -Will continue to monitor with serial CMP's. Anemia * Likely secondary to chronic disease * Baseline H/H: 01/25, on admission: 12/23.8 * Reticulocyte: 3.5 * Iron: 25 * TIBC: 266 * %saturation: 9 * Ferriti: 28.5 * Retic count:3.5 * Folate: 705 * B12: 7.3 Hx of Atrial Fibrillation * Not on any anticoagulation (Hx of varices and medication non-compliance) * CHADS-Vasc score of 1: Low-moderate risk and should consider antiplatelet or anticoagulation therapy * EKG showed a-fib with RVR following * Continue on Cardizem Alcohol Decompensated Cirrhosis * MELD 20 on admission * Hepatitis panel negative 11/10/16 * AFP 2.3 11/10/16 * Ammonia 50 Another dose of Lactulose given today. * CT abdomen/Pelvis PO contrast shows nonobstructing left renal calculus, umbilical hernia, and cirrhotic liver * Fluid restriction (1 Liters a day) * S/P Parcentesis Day #2. Will continue to monitor. * Start Spironolactone * 90.2 kg today upon examination * Daily Weights. Please have nursing staff weigh him daily to track possible fluid retention. Hx Alcohol Abuse * Alcohol Serum <10 * UDS negative * Patient is not in acute withdrawal Prophylactic Measure * GI PPX: Protonix 40mg IVP daily * Contraindicated DVT PPx for history of varices, and downtrending hemoglobin * SCD c/i * Florastor 250mg PO BID Disposition: * Completed POLST Form. * DNR/DNI * Will follow up with Dr. Barbosa for rec's in regards to referral to Liver Clinic. Will discuss case with Dr. Charlene Hernández PGY-1 <Serafin Reaves - Last Filed: 05/29/17 21:01> Objective - Vital Signs/Intake and Output Vital Signs (last 24 hours): Temp Pulse Resp BP Pulse Ox 98.2 F 90 20 117/74 98 05/29/17 15:00 05/29/17 15:00 05/29/17 15:00 05/29/17 15:00 05/29/17 15:00 Intake and Output: 05/29/17 05/30/17 18:59 06:59 Intake Total 300 Output Total 400 Balance -100 - Medications Medications: Current Medications Aspirin (Ecotrin) 81 mg PO DAILY [facility] Last Admin: 05/29/17 10:05 Dose: 81 mg Diltiazem HCl (Cardizem Cd) 120 mg PO DAILY [facility] Last Admin: 05/29/17 10:05 Dose: 120 mg Diphenhydramine HCl (Benadryl) 25 mg IVP PRN PRN PRN Reason: Allergy symptoms Ferrous Sulfate (Feosol) 325 mg PO DAILY [facility] Last Admin: 05/29/17 10:05 Dose: 325 mg Furosemide (Lasix) 40 mg IVP DAILY [facility] Last Admin: 05/29/17 10:06 Dose: 40 mg Guaifenesin/Dextromethorphan (Robitussin Dm) 5 ml PO Q4H PRN PRN Reason: Cough Vancomycin/Sodium Chloride (Vancomycin 1 Gm/Ns 200 Ml) 1 gm in 200 mls @ 133 mls/hr IVPB Q12H [facility] Stop: 05/31/17 20:01 Last Admin: 05/29/17 20:32 Dose: 133 mls/hr Piperacillin Sod/Tazobactam Sod (Zosyn 3.375 Gm Iv Premix) 3.375 gm in 50 mls @ 100 mls/hr IVPB Q8H [facility] Last Admin: 05/29/17 19:25 Dose: 100 mls/hr Lactic Acid (Lac-Hydrin 12% Lotion (225 G)) 0 gm EXT DAILY [facility] Last Admin: 05/29/17 10:06 Dose: 1 applic Lorazepam (Ativan) 1 mg IVP Q6H PRN PRN Reason: Symptoms of alcohol withdrawl Ondansetron HCl (Zofran Inj) 4 mg IVP Q6 PRN PRN Reason: Nausea/Vomiting Pantoprazole Sodium (Protonix Ec Tab) 40 mg PO DAILY [facility] Last Admin: 05/29/17 10:07 Dose: 40 mg Saccharomyces Boulardii (Florastor) 250 mg PO BID [facility] Last Admin: 05/29/17 17:29 Dose: 250 mg Spironolactone (Aldactone) 50 mg PO DAILY [facility] Last Admin: 05/29/17 10:45 Dose: 50 mg - Labs Labs: 05/29/17 07:17 05/29/17 07:17 PT 23.0 SECONDS (9.7-12.2) H 05/26/17 11:44 INR 2.0 05/26/17 11:44 APTT 39 SECONDS (21-34) H 05/20/17 19:08 Attending/Attestation - Attestation I have personally seen and examined this patient.: Yes I have fully participated in the care of the patient.: Yes I have reviewed all pertinent clinical information, including history, physical exam and plan: Yes Notes (Text): 05/29/17 20:55 Patient was seen and examined at 3:00 PM 05/29/17 667 A Currently FULL ROS NO longer experiencing lateral left rib pain lateral and slightly inferior to the left nipple that was reproducible on exam on 05/28/17 Abdominal Pain is better and nonexistant since paracentesis on 05/26/17 Breathing much better after the paracentesis and no wheezing. NO coughing Complains of chronic left lateral upper thigh pain s/p injury as a younger man: states that this is unchanged and not new Moving bowels and no blood/black stools and well formed NO burning pain with urination NO chest pain NO new changes in vision NO new changes in hearing NO paresthesias NO headaches NO n/v and tolerating diet NO dysphagia/odynophagia Exam: General: AAOx3, NAD HEENT: EOMI, PERRLA, NCA, NO pharyngeal erythema/exudate, NO cervical/ supraclavicular/submandibular lymphadenopathy, NO thyromegaly, Nasal Turbinates are nonerythematous/nonedematous, Oral mucosa is moist and has poor dentition Cardio: NS1 and NS2, NO M/R/G Resp: CTA B/L, NO R/R/W GI: BSX4, Softer and NONtender (compared to prior exams), Liver and Spleen could not be palpated secondary to distention, NO guarding/rebound tenderness, Umbilical Hernia which is compressable/nontender/not warm/nonerythematous Ext: Pulses B/L UE are strong and equal, Pulses B/L LE are palpable but weaker than the UE, Capillary Refill is 2 seconds, 1+ Pitting edema B/L LE, Right Leg greater circumference compared to the Left Leg, Right Lower Leg with browner skin coloration compared to the Left Lower Leg is normal skin color to rest of body, Patchy areas of hyperkeratosis throughout the Right Lower Leg, NO open wounds noted on Right Lower Leg, NO warmth and NO erythema noted on Right Anterior Lower Leg that was demarcated with blue ink, Deformed toes bilateral feet. Neuro: CN II through XII are grossly intact Assessment/Plan 1) Sepsis Bactermia RLE Cellulitis * On admission: Febrile, tachycardiac, leukocytosis with left shift, lactate 2.5 -> 1.3 * Gentamicin Sulfate 8-mg IVPB Q 8H (active since 05/22/17 through 05/24/17) * Zosyn 3.375 IV Q Q8H (active since 05/21/17) * Vancomycin (active since 05/22/17) was increased to 2 grams IV Q12H on 05/24/17 for goal trough of 15. Vanco Trough elevated at 21+ on 05/26/17 therefore reduced to 1 gm IV Q12H * Vancomycin trough 5:30 AM 05/28/17 and 5:30 PM 05/29/17 is roughly within range of 15-20 * Follow up Vancomycin trough 5:30 AM 05/31/17 * Tamiflu 75mg PO BID (1/19/18 through 05/26/17) * Procalcitonin 3.93 * Blood Culture (05/20/17): Strep Agalactiae Group B X2 * Repeat Blood Culture 05/27/17 is negative to date * Wound Culture (05/21/17): Strep Agalactiae Group B, Staphylococcus Aureus * Urine culture (05/20/17): no growth * Throat Culture (05/21/17): no beta group A isolated 2) RLE Cellulitis with Chronic Venous Stasis * Right LE weeping puncture wound on admission -->improved and not noted on exam 05/26/17 * Wound Culture (05/21/17): Strep Agalactiae Group B, MRSA * Venous doppler reveals no DVT bilaterally but 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 * ASA 81 mg PO daily * Lasix 40 mg IV 1x/day 3) Hypervolemic Hyponatremia SIADH * 127 on admission and is currently stable * Serum osmolality: 281 * Urine osmolality 722 * Urine Random Sodium 7 * Fluid Restriction: 1200mL 4) Diarrhea * Stool Culture and O&P 05/21/17 are NEGATIVE * Diarrhea has resolved 5) Anemia * Likely secondary to chronic disease * Baseline H/H: 01/25, on admission: 12/23.8 * Reticulocyte: 3.5 * Iron: 25 * TIBC: 266 * %saturation: 9 * Ferritin: 28.5 * Retic count:3.5 * Folate: 705 * B12: 7.3 * Ferrous Sulfate 325 mg PO 1x/day 6) Hx of Atrial Fibrillation * Not on any anticoagulation (Hx of varices and medication non-compliance) and because his INR is 2+ (due to the Liver Failure) * Diltiazem CD 120 mg PO 1x/day 7) Alcohol Decompensated Cirrhosis * MELD 20 on admission * Discriminant Function is 63.1 * Hepatitis panel negative 11/10/16 * AFP 2.3 11/10/16 * Ammonia 34 on admission and elevated to 54 and therefore Lactulose 20 gm PO x 1 dose given 05/28/17 and 05/29/17 * CT Abdmon/Pelvis 05/23/17: cirrhotic liver without focal hepatic mass, ascites and anasarca, nonobstructing left renal calculus, umbilical hernia containing fluid and omentum without bowel * CT Chest 05/23/17: no infiltrate/effusion, ascites, hepatic cirrhosis, left upper pole renal hyerdense cyst * U/S Abdomen 05/23/17: cirrhosis, ascites, thickened gallbladder wall, bilateral cortical renal cysts * Extensive conversation with patient and ex- 05/25/17 about poor prognosis of his liver failure * ANAND Barbosa spoke with [facility] at [facility] and starting steroids is NOT recommended and patient is poor candidate for liver transplant considering his questionable continued alcohol use and homelessness. F/U with [facility] at [facility] as an outpatient. * 05/26/17: paracentesis by IR Dr. Romero and 1 liter of fluid removed with significant improvement in patient abdominal pain and breathing. F/U peritoneal fluid culture and cytology * Follow Daily Weights and he is currently at 187 pounds 05/29/17 * Lasix 40 mg IV 1x/day * Spironolactone 50 mg PO 1x/day 8) Hx Alcohol Abuse * Alcohol Serum <10 * UDS negative * Patient is not in acute withdrawal 9). Hypomagnesemia * Given Magnesium Sulfate 1 gm x 2 on 05/23/17 and 05/24/17 but could not be given on 05/25/17 due to lack of Magnesium Sulfate in pharmacy * Magnesium 1.5 and Mag Sulfate 1 gm given on 05/29/17. F/U Mag level. 10) Prophylactic Measure * Lac Hydrin 12% lotion bilateral legs daily * Zofran 4 mg IV Q6H PRN N/V * Protonix 40 mg PO 1x/day * Florastor 250 mg PO 2x/day * Robitussin DM 5 ml PO Q6H PRN cough * Duoneb 05/25/17: Palliative Care Nurse Katheryn met with patient and explained poor prognosis and I subsequently had same conversation with patient and his ex- . Patient has decided on DNR/DNI and POLST has been completed and placed in chart. 05/26/17: ANAND Barbosa spoke with [facility] at [facility] and starting steroids is NOT recommended and patient is poor candidate for liver transplant considering his questionable continued alcohol use and homelessness. F/U with [facility] at [facility] as an outpatient. Serafin Reaves D.O.
[2017-05-29] MEDS: Vancomycin 1 gm/NS 200 ml 1 GM/200 ML BAG IVPB SCH ×2 (07:20→20:32)
[2017-05-29 07:57] LABS: BASO # 0.1 K/uL (0.0-0.2); BASO % 1.6 % (0.0-2.0); EOS # 0.5 K/uL (0.0-0.7); EOS % 5.6 % (0.0-4.0); HEMOGLOBIN 8.7 g/dL (12.0-18.0); LYMPH # 1.8 K/uL (1.0-4.3); LYMPH % 21.5 % (20.0-40.0); MEAN CORPUSCULAR HEMOGLOBIN 30.2 pg (27.0-31.0); MEAN PLATELET VOLUME 8.2 fL (7.2-11.7); MONO % 12.2 % (0.0-10.0); NEUT # 4.9 K/uL (1.8-7.0); NEUT % 59.1 % (50.0-75.0); RBC 2.86 Mil/uL (4.40-5.90); RED CELL DISTRIBUTION WIDTH 20.6 % (11.5-14.5); WHITE BLOOD COUNT 8.3 K/uL (4.8-10.8)
[2017-05-29 08:00] LABS: ALB/GLOB RATIO 0.5 (1.0-2.1); ALBUMIN 2.3 g/dL (3.5-5.0); ALT/SGPT 26 U/L (21-72); AST/SGOT 58 U/L (17-59); BLOOD UREA NITROGEN 12 mg/dL (9-20); CALCIUM 7.3 mg/dl (8.6-10.4); GFR AFRICAN-AMERICAN > 60; GFR NON-AFRICAN AMERICAN > 60; MAGNESIUM 1.5 mg/dL (1.6-2.3)
[2017-05-29] MEDS: diltiaZEM 120 mg/24 Hours CD Cap PO SCH (10:05)
[2017-05-29] MEDS: Saccharomyces Boulardi 250 mg Cap PO SCH ×2 (10:06→17:29)
[2017-05-29] MEDS: Ammonium Lactate 12% Lotion (225 g) EXT SCH (10:06)
[2017-05-29] MEDS: Pantoprazole 40 mg EC Tab PO SCH (10:07)
--- NOTE | 2017-05-29 10:18 | CP.PCM.PN ---
Subjective - Date & Time of Evaluation Date of Evaluation: 05/29/17 Time of Evaluation: 10:10 - Subjective Subjective: F/U cirrhosis Pt seen with RN Denies CP, SOB, fever, chills, SZ, RB, melena, EAST, cough Objective - Vital Signs/Intake and Output Vital Signs (last 24 hours): Temp Pulse Resp BP Pulse Ox 98.1 F 86 20 145/80 100 05/29/17 08:32 05/29/17 09:11 05/29/17 08:32 05/29/17 10:06 05/29/17 08:32 Intake and Output: 05/29/17 05/29/17 06:59 18:59 Intake Total 250 Balance 250 - Medications Medications: Current Medications Aspirin (Ecotrin) 81 mg PO DAILY [facility] Last Admin: 05/29/17 10:05 Dose: 81 mg Diltiazem HCl (Cardizem Cd) 120 mg PO DAILY [facility] Last Admin: 05/29/17 10:05 Dose: 120 mg Diphenhydramine HCl (Benadryl) 25 mg IVP PRN PRN PRN Reason: Allergy symptoms Ferrous Sulfate (Feosol) 325 mg PO DAILY [facility] Last Admin: 05/29/17 10:05 Dose: 325 mg Furosemide (Lasix) 40 mg IVP DAILY [facility] Last Admin: 05/29/17 10:06 Dose: 40 mg Guaifenesin/Dextromethorphan (Robitussin Dm) 5 ml PO Q4H PRN PRN Reason: Cough Vancomycin/Sodium Chloride (Vancomycin 1 Gm/Ns 200 Ml) 1 gm in 200 mls @ 133 mls/hr IVPB Q12H [facility] Stop: 05/31/17 20:01 Last Admin: 05/29/17 07:20 Dose: 133 mls/hr Piperacillin Sod/Tazobactam Sod (Zosyn 3.375 Gm Iv Premix) 3.375 gm in 50 mls @ 100 mls/hr IVPB Q8H [facility] Last Admin: 05/29/17 10:07 Dose: 100 mls/hr Lactic Acid (Lac-Hydrin 12% Lotion (225 G)) 0 gm EXT DAILY [facility] Last Admin: 05/29/17 10:06 Dose: 1 applic Lorazepam (Ativan) 1 mg IVP Q6H PRN PRN Reason: Symptoms of alcohol withdrawl Ondansetron HCl (Zofran Inj) 4 mg IVP Q6 PRN PRN Reason: Nausea/Vomiting Pantoprazole Sodium (Protonix Ec Tab) 40 mg PO DAILY [facility] Last Admin: 05/29/17 10:07 Dose: 40 mg Saccharomyces Boulardii (Florastor) 250 mg PO BID [facility] Last Admin: 05/29/17 10:06 Dose: 250 mg Spironolactone (Aldactone) 50 mg PO DAILY [facility] Last Admin: 05/28/17 12:12 Dose: 50 mg - Labs Labs: 05/29/17 07:17 05/29/17 07:17 PT 23.0 SECONDS (9.7-12.2) H 05/26/17 11:44 INR 2.0 05/26/17 11:44 APTT 39 SECONDS (21-34) H 05/20/17 19:08 - Constitutional Appears: Non-toxic - Respiratory Exam Respiratory Exam: Clear to Ausculation Bilateral - Cardiovascular Exam Cardiovascular Exam: RRR - GI/Abdominal Exam GI & Abdominal Exam: Distended, Normal Bowel Sounds. absent: Tenderness, Mass, Rebound Additional comments: +Umbil hernia - Extremities Exam Extremities Exam: Pedal Edema - Neurological Exam Neurological Exam: Alert Assessment and Plan (1) Cellulitis of right leg without foot Status: Acute (2) Hyponatremia Status: Acute (3) Sepsis Status: Acute (4) Alcohol abuse Status: Acute (5) Anemia Status: Chronic (6) Atrial fibrillation Status: Chronic (7) Liver cirrhosis, alcoholic Status: Chronic (8) Ascites Assessment & Plan: Wts 190 to 187 Follow wts and lytes On Diuretics Status: Acute (9) Liver function abnormality Status: Acute
[2017-05-29] MEDS ORDERED: Magnesium Sulfate 1 gm in D5W 1 GM/100 ML BAG IVPB ONE (16:14)
--- NOTE | 2017-05-30 00:04 | CP.PCM.PN ---
<Bobby Hrenández - Last Filed: 05/30/17 07:35> Subjective - Date & Time of Evaluation Date of Evaluation: 05/30/17 Time of Evaluation: 06:30 - Subjective Subjective: Medicine progress note for Dr. Charlene Reaves Patient seen and examined. Patient complaining of ongoing left leg pain and cough. Objective - Vital Signs/Intake and Output Vital Signs (last 24 hours): Temp Pulse Resp BP Pulse Ox 98.2 F 90 20 117/74 98 05/29/17 15:00 05/29/17 15:00 05/29/17 15:00 05/29/17 15:00 05/29/17 15:00 Intake and Output: 05/29/17 05/30/17 18:59 06:59 Intake Total 300 Output Total 400 Balance -100 - Medications Medications: Current Medications Aspirin (Ecotrin) 81 mg PO DAILY [facility] Last Admin: 05/29/17 10:05 Dose: 81 mg Diltiazem HCl (Cardizem Cd) 120 mg PO DAILY [facility] Last Admin: 05/29/17 10:05 Dose: 120 mg Diphenhydramine HCl (Benadryl) 25 mg IVP PRN PRN PRN Reason: Allergy symptoms Ferrous Sulfate (Feosol) 325 mg PO DAILY [facility] Last Admin: 05/29/17 10:05 Dose: 325 mg Furosemide (Lasix) 40 mg IVP DAILY [facility] Last Admin: 05/29/17 10:06 Dose: 40 mg Guaifenesin/Dextromethorphan (Robitussin Dm) 5 ml PO Q4H PRN PRN Reason: Cough Vancomycin/Sodium Chloride (Vancomycin 1 Gm/Ns 200 Ml) 1 gm in 200 mls @ 133 mls/hr IVPB Q12H [facility] Stop: 05/31/17 20:01 Last Admin: 05/29/17 20:32 Dose: 133 mls/hr Piperacillin Sod/Tazobactam Sod (Zosyn 3.375 Gm Iv Premix) 3.375 gm in 50 mls @ 100 mls/hr IVPB Q8H [facility] Last Admin: 05/29/17 19:25 Dose: 100 mls/hr Lactic Acid (Lac-Hydrin 12% Lotion (225 G)) 0 gm EXT DAILY [facility] Last Admin: 05/29/17 10:06 Dose: 1 applic Lorazepam (Ativan) 1 mg IVP Q6H PRN PRN Reason: Symptoms of alcohol withdrawl Ondansetron HCl (Zofran Inj) 4 mg IVP Q6 PRN PRN Reason: Nausea/Vomiting Pantoprazole Sodium (Protonix Ec Tab) 40 mg PO DAILY [facility] Last Admin: 05/29/17 10:07 Dose: 40 mg Saccharomyces Boulardii (Florastor) 250 mg PO BID [facility] Last Admin: 05/29/17 17:29 Dose: 250 mg Spironolactone (Aldactone) 50 mg PO DAILY [facility] Last Admin: 05/29/17 10:45 Dose: 50 mg - Labs Labs: 05/29/17 07:17 05/29/17 07:17 PT 23.0 SECONDS (9.7-12.2) H 05/26/17 11:44 INR 2.0 05/26/17 11:44 APTT 39 SECONDS (21-34) H 05/20/17 19:08 - Additional Findings Additional findings: - Constitutional Appears: No Acute Distress - Head Exam Head Exam: ATRAUMATIC, NORMOCEPHALIC - Eye Exam Eye Exam: EOMI, Normal appearance - ENT Exam ENT Exam: Mucous Membranes Moist - Respiratory Exam Respiratory Exam: Clear to Ausculation Bilateral, NORMAL BREATHING PATTERN. absent: Rales, Rhonchi, Wheezes - Cardiovascular Exam Cardiovascular Exam: REGULAR RHYTHM, +S1, +S2 - GI/Abdominal Exam GI & Abdominal Exam: Tenderness, Normal Bowel Sounds. absent: Guarding - Extremities Exam Extremities Exam: Pedal Edema - Neurological Exam Neurological Exam: Alert, Awake, Oriented x3 - Psychiatric Exam Psychiatric exam: Normal Affect, Normal Mood - Skin Skin Exam: Dry, Warm Assessment and Plan - Assessment and Plan (Free Text) Plan: Sepsis Bactermia RLE Cellulitis * On admission: Febrile, tachycardiac, leukocytosis with left shift, lactate 2.5 -> 1.3 * Tmax: 99.9F * Continue Zosyn 3.375gram IV Q8H (active since 05/21/17) * Vancomycin changed to 1gram IVPB Q12H * Follow-up Vancomycin trough 15.2. Will keep current dose. Will continue to monitor. * Blood Culture (05/20/17): Strep Agalactiae Final result * Wound Culture (05/21/17): Strep Agalactiae Group B, Staphylococcus Aureus * Urine culture (05/20/17): no growth * Throat Culture (05/21/17): no beta group A isolatedm, negative * Stool culture negative Shigella, Campylobacter. RLE Cellulitis with Chronic Venous Stasis * Right LE weeping puncture wound on admission -->no wound appreciated now on physical exam. * Leg improving in comparison to initial presentation. Will continue to monitor. * Wound culture: B-hemolytic strep Group B and MRSA. 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 * ASA 81 mg PO daily Hyponatremia SIADH * No intervention at this time.. * Serum osmolality: 281 * Urine osmolality:722 * Urine Random Sodium:7 Elevated T-bili -3.2Today. Trending down -Most likely secondary to alcohol abuse. -Will continue to monitor. Constipation. * Milk of magnesia added on. Will continue to monnitor. * CT abdomen/Pelvis PO contrast shows nonobstructing left renal calculus, umbilical hernia, and cirrhotic liver Hypomagnesmia /hypokalemia -Unable to Magnesium replete today due to shortage in the hospital. Will monitor and follow up with laboratory in the A.M. Will continue to monitor with serial CMP's. -Will continue to monitor with serial CMP's. Anemia * Likely secondary to chronic disease * Baseline H/H: 01/25, on admission: 12/23.8 * Reticulocyte: 3.5 * Iron: 25 * TIBC: 266 * %saturation: 9 * Ferriti: 28.5 * Retic count:3.5 * Folate: 705 * B12: 7.3 Hx of Atrial Fibrillation * Not on any anticoagulation (Hx of varices and medication non-compliance) * CHADS-Vasc score of 1: Low-moderate risk and should consider antiplatelet or anticoagulation therapy * EKG showed a-fib with RVR following * Continue on Cardizem Alcohol Decompensated Cirrhosis * MELD 20 on admission * Hepatitis panel negative 11/10/16 * AFP 2.3 11/10/16 * Ammonia 50 Another dose of Lactulose given today. * CT abdomen/Pelvis PO contrast shows nonobstructing left renal calculus, umbilical hernia, and cirrhotic liver * Fluid restriction (1 Liters a day) * S/P Parcentesis Day #2. Will continue to monitor. * Start Spironolactone * 90.2 kg today upon examination * Daily Weights. Please have nursing staff weigh him daily to track possible fluid retention. Hx Alcohol Abuse * Alcohol Serum <10 * UDS negative * Patient is not in acute withdrawal Prophylactic Measure * GI PPX: Protonix 40mg IVP daily * Contraindicated DVT PPx for history of varices, and downtrending hemoglobin * SCD c/i * Florastor 250mg PO BID Disposition: * Completed POLST Form. * DNR/DNI * Will follow up with Dr. Barbosa for rec's in regards to referral to Liver Clinic. Will discuss case with Dr. Charlene Hernández PGY-1 <Serafin Reaves - Last Filed: 05/30/17 09:22> Objective - Vital Signs/Intake and Output Vital Signs (last 24 hours): Temp Pulse Resp BP Pulse Ox 98.4 F 91 H 20 123/76 96 05/29/17 23:24 05/29/17 23:24 05/29/17 23:24 05/29/17 23:24 05/29/17 23:24 Intake and Output: 05/30/17 05/30/17 06:59 18:59 Intake Total 1010 Output Total 250 Balance 760 - Medications Medications: Current Medications Aspirin (Ecotrin) 81 mg PO DAILY [facility] Last Admin: 05/29/17 10:05 Dose: 81 mg Diltiazem HCl (Cardizem Cd) 120 mg PO DAILY [facility] Last Admin: 05/29/17 10:05 Dose: 120 mg Diphenhydramine HCl (Benadryl) 25 mg IVP PRN PRN PRN Reason: Allergy symptoms Ferrous Sulfate (Feosol) 325 mg PO DAILY [facility] Last Admin: 05/29/17 10:05 Dose: 325 mg Furosemide (Lasix) 40 mg IVP DAILY [facility] Last Admin: 05/29/17 10:06 Dose: 40 mg Guaifenesin/Dextromethorphan (Robitussin Dm) 5 ml PO Q4H PRN PRN Reason: Cough Vancomycin/Sodium Chloride (Vancomycin 1 Gm/Ns 200 Ml) 1 gm in 200 mls @ 133 mls/hr IVPB Q12H [facility] Stop: 05/31/17 20:01 Last Admin: 05/30/17 08:01 Dose: 133 mls/hr Piperacillin Sod/Tazobactam Sod (Zosyn 3.375 Gm Iv Premix) 3.375 gm in 50 mls @ 100 mls/hr IVPB Q8H [facility] Last Admin: 05/30/17 03:37 Dose: 100 mls/hr Lactic Acid (Lac-Hydrin 12% Lotion (225 G)) 0 gm EXT DAILY [facility] Last Admin: 05/29/17 10:06 Dose: 1 applic Lorazepam (Ativan) 1 mg IVP Q6H PRN PRN Reason: Symptoms of alcohol withdrawl Ondansetron HCl (Zofran Inj) 4 mg IVP Q6 PRN PRN Reason: Nausea/Vomiting Pantoprazole Sodium (Protonix Ec Tab) 40 mg PO DAILY [facility] Last Admin: 05/29/17 10:07 Dose: 40 mg Saccharomyces Boulardii (Florastor) 250 mg PO BID [facility] Last Admin: 05/29/17 17:29 Dose: 250 mg Spironolactone (Aldactone) 50 mg PO DAILY [facility] Last Admin: 05/29/17 10:45 Dose: 50 mg - Labs Labs: 05/29/17 07:17 05/29/17 07:17 PT 23.0 SECONDS (9.7-12.2) H 05/26/17 11:44 INR 2.0 05/26/17 11:44 APTT 39 SECONDS (21-34) H 05/20/17 19:08 Attending/Attestation - Attestation I have personally seen and examined this patient.: Yes I have fully participated in the care of the patient.: Yes I have reviewed all pertinent clinical information, including history, physical exam and plan: Yes Notes (Text): 05/30/17 08:31 Patient was seen and examined at 8:30 AM 05/30/17 667 A Currently FULL ROS NO longer experiencing lateral left rib pain lateral and slightly inferior to the left nipple that was reproducible on exam on 05/28/17 Abdominal Pain is better and nonexistant since paracentesis on 05/26/17 Breathing much better after the paracentesis and no wheezing. NO coughing Continues to complain of chronic left lateral upper thigh pain s/p injury as a younger man: states that this is unchanged and not new Moving bowels and no blood/black stools and well formed to soft NO burning pain with urination NO chest pain NO new changes in vision NO new changes in hearing NO paresthesias NO headaches NO n/v and tolerating diet NO dysphagia/odynophagia Exam: General: AAOx3, NAD HEENT: EOMI, PERRLA, NCA, NO pharyngeal erythema/exudate, NO cervical/ supraclavicular/submandibular lymphadenopathy, NO thyromegaly, Nasal Turbinates are nonerythematous/nonedematous, Oral mucosa is moist and has poor dentition Cardio: NS1 and NS2, NO M/R/G Resp: CTA B/L, NO R/R/W GI: BSX4, Softer and NONtender (compared to prior exams), Liver and Spleen could not be palpated secondary to distention, NO guarding/rebound tenderness, Umbilical Hernia which is compressable/nontender/not warm/nonerythematous Ext: Pulses B/L UE are strong and equal, Pulses B/L LE are palpable but weaker than the UE, Capillary Refill is 2 seconds, 1+ Pitting edema B/L LE, Right Leg greater circumference compared to the Left Leg however continues to reduce in size upon daily exam, Right Lower Leg with browner skin coloration compared to the Left Lower Leg is normal skin color to rest of body, Patchy areas of hyperkeratosis throughout the Right Lower Leg, NO open wounds noted on Right Lower Leg, NO warmth and NO erythema noted on Right Anterior Lower Leg that was demarcated with blue ink, Deformed toes bilateral feet. Neuro: CN II through XII are grossly intact Assessment/Plan 1) Sepsis Bactermia RLE Cellulitis * On admission: Febrile, tachycardiac, leukocytosis with left shift, lactate 2.5 -> 1.3 * Gentamicin Sulfate 8-mg IVPB Q 8H (active since 05/22/17 through 05/24/17) * Zosyn 3.375 IV Q Q8H (active since 05/21/17) * Vancomycin (active since 05/22/17) was increased to 2 grams IV Q12H on 05/24/17 for goal trough of 15. Vanco Trough elevated at 21+ on 05/26/17 therefore reduced to 1 gm IV Q12H * Vancomycin trough 5:30 AM 05/28/17 and 5:30 PM 05/29/17 is roughly within range of 15-20 * Follow up Vancomycin trough 5:30 AM 05/31/17 * Tamiflu 75mg PO BID (05/21/17 through 05/26/17) * Procalcitonin 3.93 * Blood Culture (05/20/17): Strep Agalactiae Group B X2 * Repeat Blood Culture 05/27/17 is negative to date * Wound Culture (05/21/17): Strep Agalactiae Group B, Staphylococcus Aureus * Urine culture (05/20/17): no growth * Throat Culture (05/21/17): no beta group A isolated 2) RLE Cellulitis with Chronic Venous Stasis * Right LE weeping puncture wound on admission -->improved and not noted on exam 05/26/17 * Wound Culture (05/21/17): Strep Agalactiae Group B, MRSA * Venous doppler reveals no DVT bilaterally but 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 * ASA 81 mg PO daily * Lasix 40 mg PO 1x/day 3) Hypervolemic Hyponatremia SIADH * 127 on admission and is currently stable * Serum osmolality: 281 * Urine osmolality 722 * Urine Random Sodium 7 * Fluid Restriction: 1200mL 4) Diarrhea * Stool Culture and O&P 05/21/17 are NEGATIVE * Diarrhea has resolved and stools have been soft to well formed as per patient 5) Anemia * Likely secondary to chronic disease * Baseline H/H: 01/25, on admission: 12/23.8 * Reticulocyte: 3.5 * Iron: 25 * TIBC: 266 * %saturation: 9 * Ferritin: 28.5 * Retic count:3.5 * Folate: 705 * B12: 7.3 * Ferrous Sulfate 325 mg PO 1x/day 6) Hx of Atrial Fibrillation * Not on any anticoagulation (Hx of varices and medication non-compliance) and because his INR is 2+ (due to the Liver Failure) * Diltiazem CD 120 mg PO 1x/day 7) Alcohol Decompensated Cirrhosis * MELD 20 on admission * Discriminant Function is 63.1 * Hepatitis panel negative 11/10/16 * AFP 2.3 11/10/16 * Ammonia 34 on admission and elevated to 54 and therefore Lactulose 20 gm PO x 1 dose given 05/28/17 and 05/29/17. Ammonia level normal at 19 05/30/17. Monitor Ammonia level and give lactulose as needed. There have been NO signs of hepatic encephalopathy on exams. * CT Abdmon/Pelvis 05/23/17: cirrhotic liver without focal hepatic mass, ascites and anasarca, nonobstructing left renal calculus, umbilical hernia containing fluid and omentum without bowel * CT Chest 05/23/17: no infiltrate/effusion, ascites, hepatic cirrhosis, left upper pole renal hyerdense cyst * U/S Abdomen 05/23/17: cirrhosis, ascites, thickened gallbladder wall, bilateral cortical renal cysts * Extensive conversation with patient and ex- 05/25/17 about poor prognosis of his liver failure * GI Dr. Barbosa spoke with [facility] at [facility] and starting steroids is NOT recommended and patient is poor candidate for liver transplant considering his questionable continued alcohol use and homelessness. F/U with [facility] Clinic at [facility] as an outpatient. * 05/26/17: paracentesis by IR Dr. Romero and 1 liter of fluid removed with significant improvement in patient abdominal pain and breathing. Medicine Team as well as Nurse caring for patient on 05/26/17, contacted Ultrasound on day of paracentesis to make sure that paracentesis fluid was not discarded and sent for these studies. F/U peritoneal fluid culture and cytology * Follow Daily Weights and he is currently at 186 pounds 05/30/17 * Lasix 40 mg PO 1x/day * Spironolactone 50 mg PO 1x/day 8) Hx Alcohol Abuse * Alcohol Serum <10 * UDS negative * Patient is not in acute withdrawal 9). Hypomagnesemia * Given Magnesium Sulfate 1 gm x 2 on 05/23/17 and 05/24/17 but could not be given on 05/25/17 due to lack of Magnesium Sulfate in pharmacy * Magnesium 1.4 and 1 gm x 1 dose given 05/30/17 10) Prophylactic Measure * Lac Hydrin 12% lotion bilateral legs daily * Zofran 4 mg IV Q6H PRN N/V * Protonix 40 mg PO 1x/day * Florastor 250 mg PO 2x/day * Robitussin DM 5 ml PO Q6H PRN cough * Duoneb 05/25/17: Palliative Care Nurse Katheryn met with patient and explained poor prognosis and I subsequently had same conversation with patient and his ex- . Patient has decided on DNR/DNI and POLST has been completed and placed in chart. 05/26/17: ANAND Barbosa spoke with [facility] at [facility] and starting steroids is NOT recommended and patient is poor candidate for liver transplant considering his questionable continued alcohol use and homelessness. F/U with [facility] Clinic at [facility] as an outpatient. Medicine Team speak with ID Dr. Sanchez concerning length of antibiotic treatment as the Right Lower Leg Cellulitis has vastly improved. He is homeless and his discharge to long-term will have to be coordinated with [employer]. Serafin Reaves D.O.
[2017-05-30] MEDS: Piperacill/Tazo 3.375gm in Dex 3.375 GM/50 ML BAG IVPB SCH ×2 (03:37→11:51)
[2017-05-30] MEDS: Vancomycin 1 gm/NS 200 ml 1 GM/200 ML BAG IVPB SCH ×2 (08:01→20:23)
[2017-05-30 08:50] LABS: BASO # 0.2 K/uL (0.0-0.2); BASO % 2.5 % (0.0-2.0); EOS # 0.5 K/uL (0.0-0.7); EOS % 5.7 % (0.0-4.0); HEMOGLOBIN 9.1 g/dL (12.0-18.0); LYMPH # 2.3 K/uL (1.0-4.3); LYMPH % 27.6 % (20.0-40.0); MEAN CELL VOLUME 88.7 fL (80.0-94.0); MEAN CORPUSCULAR HEMOGLOBIN 30.3 pg (27.0-31.0); MEAN CORPUSCULAR HGB CONC 34.1 g/dL (33.0-37.0); MEAN PLATELET VOLUME 8.1 fL (7.2-11.7); MONO # 1.3 K/uL (0.0-0.8); NEUT # 4.1 K/uL (1.8-7.0); NEUT % 49.2 % (50.0-75.0); NRBC % 0.1 % (0.0-2.0); RBC 3.02 Mil/uL (4.40-5.90); WHITE BLOOD COUNT 8.4 K/uL (4.8-10.8)
[2017-05-30 08:56] LABS: INR 1.9; PROTHROMBIN TIME 21.9 SECONDS (9.7-12.2)
[2017-05-30 09:05] LABS: ALB/GLOB RATIO 0.5 (1.0-2.1); ALBUMIN 2.6 g/dL (3.5-5.0); ALT/SGPT 26 U/L (21-72); AST/SGOT 65 U/L (17-59); BLOOD UREA NITROGEN 12 mg/dL (9-20); CALCIUM 7.4 mg/dl (8.6-10.4); GFR AFRICAN-AMERICAN > 60; GFR NON-AFRICAN AMERICAN > 60; MAGNESIUM 1.4 mg/dL (1.6-2.3)
[2017-05-30] MEDS: Saccharomyces Boulardi 250 mg Cap PO SCH ×2 (09:46→20:23)
[2017-05-30] MEDS: diltiaZEM 120 mg/24 Hours CD Cap PO SCH (09:47)
[2017-05-30] MEDS: Pantoprazole 40 mg EC Tab PO SCH (09:48)
[2017-05-30] MEDS: Ammonium Lactate 12% Lotion (225 g) EXT SCH (09:48)
[2017-05-30] MEDS ORDERED: Magnesium Sulfate 1 gm in D5W 1 GM/100 ML BAG IVPB ONE (10:00)
--- NOTE | 2017-05-30 11:35 | CP.PCM.PN ---
Subjective - Date & Time of Evaluation Date of Evaluation: 05/30/17 Time of Evaluation: 11:10 - Subjective Subjective: F/U cirrhosis. Constipation No RB, melena, abdom pain, fever, chills , SZ,LOC, EAST, cough Objective - Vital Signs/Intake and Output Vital Signs (last 24 hours): Temp Pulse Resp BP Pulse Ox 98.8 F 114 H 20 124/77 95 05/30/17 07:40 05/30/17 07:40 05/30/17 07:40 05/30/17 09:47 05/30/17 07:40 Intake and Output: 05/30/17 05/30/17 06:59 18:59 Intake Total 1010 Output Total 250 Balance 760 - Medications Medications: Current Medications Aspirin (Ecotrin) 81 mg PO DAILY [facility] Last Admin: 05/30/17 09:48 Dose: 81 mg Diltiazem HCl (Cardizem Cd) 120 mg PO DAILY [facility] Last Admin: 05/30/17 09:47 Dose: 120 mg Diphenhydramine HCl (Benadryl) 25 mg IVP PRN PRN PRN Reason: Allergy symptoms Ferrous Sulfate (Feosol) 325 mg PO DAILY [facility] Last Admin: 05/30/17 09:47 Dose: 325 mg Furosemide (Lasix) 40 mg PO DAILY [facility] Last Admin: 05/30/17 09:47 Dose: 40 mg Guaifenesin/Dextromethorphan (Robitussin Dm) 5 ml PO Q4H PRN PRN Reason: Cough Vancomycin/Sodium Chloride (Vancomycin 1 Gm/Ns 200 Ml) 1 gm in 200 mls @ 133 mls/hr IVPB Q12H [facility] Stop: 05/31/17 20:01 Last Admin: 05/30/17 08:01 Dose: 133 mls/hr Piperacillin Sod/Tazobactam (Sod 3.375 gm/ Sodium Chloride) 100 mls @ 100 mls/ hr IVPB Q8H [facility] Lactic Acid (Lac-Hydrin 12% Lotion (225 G)) 0 gm EXT DAILY [facility] Last Admin: 05/30/17 09:48 Dose: 1 applic Lorazepam (Ativan) 1 mg IVP Q6H PRN PRN Reason: Symptoms of alcohol withdrawl Ondansetron HCl (Zofran Inj) 4 mg IVP Q6 PRN PRN Reason: Nausea/Vomiting Pantoprazole Sodium (Protonix Ec Tab) 40 mg PO DAILY [facility] Last Admin: 05/30/17 09:48 Dose: 40 mg Saccharomyces Boulardii (Florastor) 250 mg PO BID [facility] Last Admin: 05/30/17 09:46 Dose: 250 mg Spironolactone (Aldactone) 50 mg PO DAILY [facility] Last Admin: 05/30/17 10:44 Dose: 50 mg - Labs Labs: 05/30/17 08:43 05/30/17 08:43 PT 21.9 SECONDS (9.7-12.2) H 05/30/17 08:43 INR 1.9 05/30/17 08:43 APTT 36 SECONDS (21-34) H 05/30/17 08:43 - Constitutional Appears: Non-toxic - Respiratory Exam Respiratory Exam: Clear to Ausculation Bilateral - Cardiovascular Exam Cardiovascular Exam: RRR - GI/Abdominal Exam GI & Abdominal Exam: Soft, Normal Bowel Sounds. absent: Tenderness - Extremities Exam Extremities Exam: Pedal Edema - Neurological Exam Neurological Exam: Alert, Oriented x3 Assessment and Plan (1) Cellulitis of right leg without foot Status: Acute (2) Hyponatremia Status: Acute (3) Sepsis Status: Acute (4) Alcohol abuse Status: Acute (5) Anemia Status: Chronic (6) Atrial fibrillation Status: Chronic (7) Liver cirrhosis, alcoholic Assessment & Plan: TB about same: 2.5. NH3 better- 19 Status: Chronic (8) Ascites Assessment & Plan: Diuretics. Follow wts, lytes Status: Acute (9) Liver function abnormality Status: Acute
[2017-05-30] MEDS: Piperacillin/Tazobact 3.375 GM in Sodium Chloride 0.9% 100 ML IVPB SCH (18:53)
[2017-05-31] MEDS: Piperacillin/Tazobact 3.375 GM in Sodium Chloride 0.9% 100 ML IVPB SCH ×3 (03:30→19:30)
[2017-05-31 07:30] LABS: HEMOGLOBIN 8.2 g/dL (12.0-18.0); MEAN CELL VOLUME 88.7 fL (80.0-94.0); MEAN CORPUSCULAR HEMOGLOBIN 30.3 pg (27.0-31.0); MEAN CORPUSCULAR HGB CONC 34.2 g/dL (33.0-37.0); RBC 2.69 Mil/uL (4.40-5.90); RED CELL DISTRIBUTION WIDTH 21.2 % (11.5-14.5); WHITE BLOOD COUNT 8.9 K/uL (4.8-10.8)
[2017-05-31 08:26] LABS: ALB/GLOB RATIO 0.5 (1.0-2.1); ALBUMIN 2.3 g/dL (3.5-5.0); ALT/SGPT 26 U/L (21-72); AST/SGOT 52 U/L (17-59); BLOOD UREA NITROGEN 11 mg/dL (9-20); CALCIUM 7.4 mg/dl (8.6-10.4); GFR AFRICAN-AMERICAN > 60; GFR NON-AFRICAN AMERICAN > 60; MAGNESIUM 1.4 mg/dL (1.6-2.3)
[2017-05-31] MEDS: Vancomycin 1 gm/NS 200 ml 1 GM/200 ML BAG IVPB SCH ×2 (08:35→20:24)
[2017-05-31] MEDS ORDERED: Magnesium Sulfate 1 gm in D5W 1 GM/100 ML BAG IVPB ONE ×2 (09:20→13:00)
[2017-05-31 09:36] LABS: EOS # 0.5 K/uL (0.0-0.7); LYMPH # 2.4 K/uL (1.0-4.3); MONO # 1.2 K/uL (0.0-0.8); NEUT # 4.8 K/uL (1.8-7.0)
[2017-05-31] MEDS: Pantoprazole 40 mg EC Tab PO SCH (09:47)
[2017-05-31] MEDS: Saccharomyces Boulardi 250 mg Cap PO SCH ×2 (09:48→17:51)
[2017-05-31] MEDS: diltiaZEM 120 mg/24 Hours CD Cap PO SCH (09:48)
[2017-05-31] MEDS: Ammonium Lactate 12% Lotion (225 g) EXT SCH (09:49)
--- NOTE | 2017-05-31 16:43 | CP.PCM.PN ---
Subjective - Date & Time of Evaluation Date of Evaluation: 05/31/17 Time of Evaluation: 03:00 - Subjective Subjective: dictated Objective - Vital Signs/Intake and Output Vital Signs (last 24 hours): Temp Pulse Resp BP Pulse Ox 98 F 83 18 127/67 98 05/31/17 16:00 05/31/17 16:00 05/31/17 16:00 05/31/17 16:00 05/31/17 16:00 Intake and Output: 05/31/17 05/31/17 06:59 18:59 Intake Total 300 Output Total 200 250 Balance -200 50 - Medications Medications: Current Medications Aspirin (Ecotrin) 81 mg PO DAILY [facility] Last Admin: 05/31/17 09:48 Dose: 81 mg Diltiazem HCl (Cardizem Cd) 120 mg PO DAILY [facility] Last Admin: 05/31/17 09:48 Dose: 120 mg Ferrous Sulfate (Feosol) 325 mg PO DAILY [facility] Last Admin: 05/31/17 09:48 Dose: 325 mg Furosemide (Lasix) 40 mg PO DAILY [facility] Last Admin: 05/31/17 09:48 Dose: 40 mg Vancomycin/Sodium Chloride (Vancomycin 1 Gm/Ns 200 Ml) 1 gm in 200 mls @ 133 mls/hr IVPB Q12H [facility] Stop: 05/31/17 20:01 Last Admin: 05/31/17 08:35 Dose: 133 mls/hr Piperacillin Sod/Tazobactam (Sod 3.375 gm/ Sodium Chloride) 100 mls @ 100 mls/ hr IVPB Q8H [facility] Last Admin: 05/31/17 12:22 Dose: 100 mls/hr Lactic Acid (Lac-Hydrin 12% Lotion (225 G)) 0 gm EXT DAILY [facility] Last Admin: 05/31/17 09:49 Dose: 1 applic Ondansetron HCl (Zofran Inj) 4 mg IVP Q6 PRN PRN Reason: Nausea/Vomiting Pantoprazole Sodium (Protonix Ec Tab) 40 mg PO DAILY [facility] Last Admin: 05/31/17 09:47 Dose: 40 mg Saccharomyces Boulardii (Florastor) 250 mg PO BID [facility] Last Admin: 05/31/17 09:48 Dose: 250 mg Spironolactone (Aldactone) 50 mg PO DAILY [facility] Last Admin: 05/31/17 09:48 Dose: 50 mg - Labs Labs: 05/31/17 06:47 05/31/17 06:47 PT 21.9 SECONDS (9.7-12.2) H 05/30/17 08:43 INR 1.9 05/30/17 08:43 APTT 36 SECONDS (21-34) H 05/30/17 08:43 Assessment and Plan (1) Streptococcal septicemia Status: Acute (2) Cellulitis of right leg without foot Status: Acute
--- NOTE | 2017-05-31 17:22 | PN ---
DATE: SUBJECTIVE: The patient, Srinivasa Turner, is doing better, but his right leg still remains swollen with redness. He is going to go home, he says tomorrow. His friend will pick him up, so we will give him another day to continue antibiotics and then tomorrow he can be discharged on Bactrim 1 tablet p.o. b.i.d. for next 10 days. He needs to follow up in the clinic if the leg does not get better for any further antibiotics. Jana Bloom MD
--- NOTE | 2017-05-31 18:36 | CP.PCM.PN ---
Subjective - Date & Time of Evaluation Date of Evaluation: 05/31/17 Time of Evaluation: 06:35 - Subjective Subjective: Jaydon Meléndez Director Long Term Care-PGY1 Patient seen and examined at bedside. Per nursing no acute events occurred overnight. The patient still reports some lower back pain. However the patient says his left upper quadrant pain gone away and he feels overall better. The patient denies shortness of breath, fevers, chills, nausea, vomiting, changes in vision, syncopal episodes, or any other complaints. Objective - Vital Signs/Intake and Output Vital Signs (last 24 hours): Temp Pulse Resp BP Pulse Ox 98 F 83 18 127/67 98 05/31/17 16:00 05/31/17 16:00 05/31/17 16:00 05/31/17 16:00 05/31/17 16:00 Intake and Output: 05/31/17 05/31/17 06:59 18:59 Intake Total 300 Output Total 200 250 Balance -200 50 - Medications Medications: Current Medications Aspirin (Ecotrin) 81 mg PO DAILY [facility] Last Admin: 05/31/17 09:48 Dose: 81 mg Diltiazem HCl (Cardizem Cd) 120 mg PO DAILY [facility] Last Admin: 05/31/17 09:48 Dose: 120 mg Ferrous Sulfate (Feosol) 325 mg PO DAILY [facility] Last Admin: 05/31/17 09:48 Dose: 325 mg Furosemide (Lasix) 40 mg PO DAILY [facility] Last Admin: 05/31/17 09:48 Dose: 40 mg Vancomycin/Sodium Chloride (Vancomycin 1 Gm/Ns 200 Ml) 1 gm in 200 mls @ 133 mls/hr IVPB Q12H [facility] Stop: 05/31/17 20:01 Last Admin: 05/31/17 08:35 Dose: 133 mls/hr Piperacillin Sod/Tazobactam (Sod 3.375 gm/ Sodium Chloride) 100 mls @ 100 mls/ hr IVPB Q8H [facility] Last Admin: 05/31/17 12:22 Dose: 100 mls/hr Lactic Acid (Lac-Hydrin 12% Lotion (225 G)) 0 gm EXT DAILY [facility] Last Admin: 05/31/17 09:49 Dose: 1 applic Ondansetron HCl (Zofran Inj) 4 mg IVP Q6 PRN PRN Reason: Nausea/Vomiting Pantoprazole Sodium (Protonix Ec Tab) 40 mg PO DAILY [facility] Last Admin: 05/31/17 09:47 Dose: 40 mg Saccharomyces Boulardii (Florastor) 250 mg PO BID [facility] Last Admin: 05/31/17 17:51 Dose: 250 mg Spironolactone (Aldactone) 50 mg PO DAILY [facility] Last Admin: 05/31/17 09:48 Dose: 50 mg - Labs Labs: 05/31/17 06:47 05/31/17 06:47 PT 21.9 SECONDS (9.7-12.2) H 05/30/17 08:43 INR 1.9 05/30/17 08:43 APTT 36 SECONDS (21-34) H 05/30/17 08:43 - Head Exam Head Exam: ATRAUMATIC, NORMAL INSPECTION, NORMOCEPHALIC - Eye Exam Eye Exam: EOMI, Normal appearance, PERRL. absent: Periorbital tenderness Pupil Exam: NORMAL ACCOMODATION, PERRL. absent: Irregular, Unequal - ENT Exam ENT Exam: Mucous Membranes Moist, Normal Exam, Normal Oropharynx - Neck Exam Neck Exam: Full ROM, Normal Inspection. absent: Lymphadenopathy, Thyromegaly - Respiratory Exam Respiratory Exam: Clear to Ausculation Bilateral, NORMAL BREATHING PATTERN. absent: Chest Wall Tenderness, Prolonged Expiratory Phase, Respiratory Distress - Cardiovascular Exam Cardiovascular Exam: REGULAR RHYTHM, RRR, +S1, +S2. absent: Gallop, Rubs - GI/Abdominal Exam GI & Abdominal Exam: Soft, Normal Bowel Sounds Additional comments: Some ascites present s/p Paracentesis - Extremities Exam Extremities Exam: absent: Joint Swelling, Pedal Edema Additional comments: Right leg cellulitis improving. - Back Exam Back Exam: NORMAL INSPECTION. absent: CVA tenderness (L), CVA tenderness (R), paraspinal tenderness - Neurological Exam Neurological Exam: Alert, Awake, CN II-XII Intact - Psychiatric Exam Psychiatric exam: Normal Affect, Normal Mood - Skin Skin Exam: Dry, Intact, Normal Color Assessment and Plan - Assessment and Plan (Free Text) Plan: 1) Sepsis Bactermia RLE Cellulitis * On admission: Febrile, tachycardiac, leukocytosis with left shift, lactate 2.5 -> 1.3 * Gentamicin Sulfate 8-mg IVPB Q 8H (active since 05/22/17 through 05/24/17) * Zosyn 3.375 IV Q Q8H (active since 05/21/17) * Vancomycin (active since 05/22/17) was increased to 2 grams IV Q12H on 05/24/17 for goal trough of 15. Vanco Trough elevated at 21+ on 05/26/17 therefore reduced to 1 gm IV Q12H * Vancomycin trough 5:30 AM 05/28/17 and 5:30 PM 05/29/17, and 05/31/17 @5:30am is roughly within range of 15-20 * Tamiflu 75mg PO BID (05/21/17 through 05/26/17) * Procalcitonin 3.93 * Blood Culture (05/20/17): Strep Agalactiae Group B X2 * Repeat Blood Culture 05/27/17 is negative to date * Wound Culture (05/21/17): Strep Agalactiae Group B, Staphylococcus Aureus * Urine culture (05/20/17): no growth * Throat Culture (05/21/17): no beta group A isolated 2) RLE Cellulitis with Chronic Venous Stasis * Right LE weeping puncture wound on admission -->improved and not noted on exam 05/26/17 * Wound Culture (05/21/17): Strep Agalactiae Group B, MRSA * Venous doppler reveals no DVT bilaterally but 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 * ASA 81 mg PO daily * Lasix 40 mg PO 1x/day 3) Hypervolemic Hyponatremia SIADH * 127 on admission and is currently stable * Serum osmolality: 281 * Urine osmolality 722 * Urine Random Sodium 7 * Fluid Restriction: 1200mL 4) Diarrhea * Stool Culture and O&P 05/21/17 are NEGATIVE * Diarrhea has resolved and stools have been soft to well formed as per patient 5) Anemia * Likely secondary to chronic disease * Baseline H/H: 01/25, on admission: 12/23.8 * Reticulocyte: 3.5 * Iron: 25 * TIBC: 266 * %saturation: 9 * Ferritin: 28.5 * Retic count:3.5 * Folate: 705 * B12: 7.3 * Ferrous Sulfate 325 mg PO 1x/day 6) Hx of Atrial Fibrillation * Not on any anticoagulation (Hx of varices and medication non-compliance) and because his INR is 2+ (due to the Liver Failure) * Diltiazem CD 120 mg PO 1x/day 7) Alcohol Decompensated Cirrhosis * MELD 20 on admission * Discriminant Function is 63.1 * Hepatitis panel negative 11/10/16 * AFP 2.3 11/10/16 * Ammonia 34 on admission * CT Abdmon/Pelvis 05/23/17: cirrhotic liver without focal hepatic mass, ascites and anasarca, nonobstructing left renal calculus, umbilical hernia containing fluid and omentum without bowel * CT Chest 05/23/17: no infiltrate/effusion, ascites, hepatic cirrhosis, left upper pole renal hyerdense cyst * U/S Abdomen 05/23/17: cirrhosis, ascites, thickened gallbladder wall, bilateral cortical renal cysts * Extensive conversation with patient and ex- 05/25/17 about poor prognosis of his liver failure * GI Dr. Barbosa spoke with [facility] at [facility] and starting steroids is NOT recommended and patient is poor candidate for liver transplant considering his questionable continued alcohol use and homelessness. F/U with [facility] at [facility] as an outpatient. * 05/26/17: paracentesis by IR Dr. Romero and 1 liter of fluid removed with significant improvement in patient abdominal pain and breathing. Medicine Team as well as Nurse caring for patient on 05/26/17, contacted Ultrasound on day of paracentesis to make sure that paracentesis fluid was not discarded and sent for these studies. F/U peritoneal fluid culture and cytology * Lasix 40 mg PO 1x/day * Spironolactone 50 mg PO 1x/day 8) Hx Alcohol Abuse * Alcohol Serum <10 * UDS negative * Patient is not in acute withdrawal 9). Hypomagnesemia * Given Magnesium Sulfate 1 gm x 2 on 05/23/17 and 05/24/17 but could not be given on 05/25/17 due to lack of Magnesium Sulfate in pharmacy * Magnesium 1.4 and 1 gm x 1 dose given 05/30/17 10) Prophylactic Measure * Lac Hydrin 12% lotion bilateral legs daily * Zofran 4 mg IV Q6H PRN N/V * Protonix 40 mg PO 1x/day * Florastor 250 mg PO 2x/day * Robitussin DM 5 ml PO Q6H PRN cough * Duoneb 05/25/17: Palliative Care Nurse Obradovic met with patient and explained poor prognosis and I subsequently had same conversation with patient and his ex- . Patient has decided on DNR/DNI and POLST has been completed and placed in chart. 05/26/17: ANAND Barbosa spoke with [facility] at [facility] and starting steroids is NOT recommended and patient is poor candidate for liver transplant considering his questionable continued alcohol use and homelessness. F/U with [facility] at [facility] as an outpatient. Disposition: Patient scheduled to be discharged tomorrow morning, 06/01/17. The patient wanted to wait until his friend could pick him up.
[2017-06-01 01:35] VITALS: RESP 20; O2SAT 96
[2017-06-01] MEDS: Piperacillin/Tazobact 3.375 GM in Sodium Chloride 0.9% 100 ML IVPB SCH (03:42)
[2017-06-01 07:31] LABS: BASO # 0.1 K/uL (0.0-0.2); BASO % 1.3 % (0.0-2.0); EOS # 0.5 K/uL (0.0-0.7); EOS % 5.5 % (0.0-4.0); HEMOGLOBIN 8.9 g/dL (12.0-18.0); LYMPH # 1.6 K/uL (1.0-4.3); LYMPH % 18.8 % (20.0-40.0); MEAN CELL VOLUME 90.1 fL (80.0-94.0); MEAN CORPUSCULAR HEMOGLOBIN 30.7 pg (27.0-31.0); MONO % 22.4 % (0.0-10.0); NEUT # 4.5 K/uL (1.8-7.0); NRBC % 0.1 % (0.0-2.0); PLATELET COUNT 252 K/uL (130-400); RBC 2.91 Mil/uL (4.40-5.90); RED CELL DISTRIBUTION WIDTH 21.3 % (11.5-14.5); WHITE BLOOD COUNT 8.7 K/uL (4.8-10.8)
[2017-06-01 07:43] LABS: ALB/GLOB RATIO 0.5 (1.0-2.1); ALBUMIN 2.2 g/dL (3.5-5.0); ALT/SGPT 27 U/L (21-72); AST/SGOT 44 U/L (17-59); BLOOD UREA NITROGEN 11 mg/dL (9-20); CALCIUM 7.2 mg/dl (8.6-10.4); GFR AFRICAN-AMERICAN > 60; GFR NON-AFRICAN AMERICAN > 60; MAGNESIUM 1.5 mg/dL (1.6-2.3)
[2017-06-01 08:22] VITALS: BP 116/80; PULSE 67; TEMP 97.9
[2017-06-01 08:58] LABS: ANISOCYTOSIS SLIGHT; EOSINOPHIL 5 % (0-4); LYMPHOCYTE 15 % (20-40); MONOCYTE 21 % (0-10); NEUTROPHIL 59 % (50-75); PLATELET ESTIMATE NORMAL (NORMAL); TOTAL CELLS COUNTED 100
[2017-06-01 08:59] LABS: HYPOCHROMIC MODERATE; POLYCHROMIC SLIGHT; TARGET CELLS MODERATE
[2017-06-01] MEDS: Pantoprazole 40 mg EC Tab PO SCH (09:24)
[2017-06-01] MEDS: Saccharomyces Boulardi 250 mg Cap PO SCH (09:24)
[2017-06-01] MEDS: diltiaZEM 120 mg/24 Hours CD Cap PO SCH (09:24)
[2017-06-01] MEDS: Ammonium Lactate 12% Lotion (225 g) EXT SCH (09:25)
--- NOTE | 2017-06-01 14:50 | CP.PCM.DIS ---
Provider - Provider Date of Admission: 05/20/17 23:31 Attending physician: Serafin Reaves MD Time Spent in preparation of Discharge (in minutes): 40 Hospital Course - Lab Results Lab Results: Micro Results 05/27/17 06:10 Blood-Venous Blood Culture - Final NO GROWTH AFTER 5 DAYS 05/27/17 06:10 Blood-Venous Gram Stain - Final TEST NOT PERFORMED 05/27/17 06:35 Blood-Venous Blood Culture - Final NO GROWTH AFTER 5 DAYS 05/27/17 06:35 Blood-Venous Gram Stain - Final TEST NOT PERFORMED 05/21/17 19:11 Stool Ova and Parasite Concentrate Exam - Final 05/21/17 19:10 Stool Stool Culture - Final NO SALMONELLA, SHIGELLA OR CAMPYLOBACTER ISOLATED. 05/21/17 06:25 Leg - Right Gram Stain - Final 05/21/17 06:25 Leg - Right Wound Culture - Final Beta Hemolytic Strep Group B Methicillin Resistant S Aureus 05/20/17 Unknown Blood-Venous Blood Culture - Final Strep Agalactiae Group B 05/20/17 Unknown Blood-Venous Gram Stain - Final 05/20/17 Unknown Blood-Venous S.aureus & Coag-Neg Staph PNA FISH - Preliminary 05/20/17 Unknown Blood-Venous Blood Culture - Final Beta Hemolytic Strep Group B 05/20/17 Unknown Blood-Venous Gram Stain - Final 05/21/17 13:17 Throat Group A Strep Throat Culture - Final NO BETA STREP GROUP A ISOLATED. 05/20/17 22:19 Urine,Clean Catch Urine Culture - Final No Growth (<1,000 CFU/ML) Most Recent Lab Values WBC 8.7 K/uL (4.8-10.8) 06/01/17 07:09 RBC 2.91 Mil/uL (4.40-5.90) L 06/01/17 07:09 Hgb 8.9 g/dL (12.0-18.0) L 06/01/17 07:09 Hct 26.3 % (35.0-51.0) L 06/01/17 07:09 MCV 90.1 fL (80.0-94.0) 06/01/17 07:09 MCH 30.7 pg (27.0-31.0) 06/01/17 07:09 MCHC 34.0 g/dL (33.0-37.0) 06/01/17 07:09 RDW 21.3 % (11.5-14.5) H 06/01/17 07:09 Plt Count 252 K/uL (130-400) 06/01/17 07:09 MPV 8.0 fL (7.2-11.7) 06/01/17 07:09 Neut % (Auto) 52.0 % (50.0-75.0) 06/01/17 07:09 Lymph % (Auto) 18.8 % (20.0-40.0) L 06/01/17 07:09 Fallon % (Auto) 22.4 % (0.0-10.0) H 06/01/17 07:09 Eos % (Auto) 5.5 % (0.0-4.0) H 06/01/17 07:09 Baso % (Auto) 1.3 % (0.0-2.0) 06/01/17 07:09 Neut # 4.5 K/uL (1.8-7.0) 06/01/17 07:09 Lymph # 1.6 K/uL (1.0-4.3) 06/01/17 07:09 Fallon # 2.0 K/uL (0.0-0.8) H 06/01/17 07:09 Eos # 0.5 K/uL (0.0-0.7) 06/01/17 07:09 Baso # 0.1 K/uL (0.0-0.2) 06/01/17 07:09 Neutrophils % (Manual) 59 % (50-75) 06/01/17 07:09 Band Neutrophils % 2 % (0-2) 05/21/17 10:15 Lymphocytes % (Manual) 15 % (20-40) L 06/01/17 07:09 Monocytes % (Manual) 21 % (0-10) H 06/01/17 07:09 Eosinophils % (Manual) 5 % (0-4) H 06/01/17 07:09 Basophils % (Manual) TEST NOT PERFORMED 05/26/17 11:44 Nucleated RBC % TEST NOT PERFORMED 05/26/17 11:44 Differential Comment 05/27/17 07:06 Platelet Estimate Normal (NORMAL) 06/01/17 07:09 Polychromasia Slight 06/01/17 07:09 Hypochromasia (manual) Moderate 06/01/17 07:09 Poikilocytosis (manual Slight 05/21/17 10:15 Anisocytosis (manual) Slight 06/01/17 07:09 Target Cells Moderate 06/01/17 07:09 Retic Count 3.5 % (0.5-1.5) H 05/22/17 08:18 PT 21.9 SECONDS (9.7-12.2) H 05/30/17 08:43 INR 1.9 05/30/17 08:43 APTT 36 SECONDS (21-34) H 05/30/17 08:43 pO2 46 mm/Hg (30-55) 05/20/17 19:19 VBG pH 7.47 (7.32-7.43) H 05/20/17 19:19 VBG pCO2 32 mmHg (40-60) L 05/20/17 19:19 VBG HCO3 24.8 mmol/L 05/20/17 19:19 VBG Total CO2 24.3 mmol/L (22-28) 05/20/17 19:19 VBG O2 Sat (Calc) 88.5 % (40-65) H 05/20/17 19:19 VBG Base Excess 0.3 mmol/L (0.0-2.0) 05/20/17 19:19 VBG Potassium 3.6 mmol/L (3.6-5.2) 05/20/17 19:19 Sodium 133.0 mmol/l (132-148) 05/20/17 19:19 Chloride 106.0 mmol/L (98-107) 05/20/17 19:19 Glucose 107 mg/dl (75-110) 05/20/17 19:19 Lactate 2.5 mmol/L (0.7-2.1) H 05/20/17 19:19 Sodium 127 mmol/L (132-148) L 06/01/17 07:09 Potassium 3.7 mmol/L (3.6-5.2) 06/01/17 07:09 Chloride 100 mmol/L (98-107) 06/01/17 07:09 Carbon Dioxide 24 mmol/L (22-30) 06/01/17 07:09 Anion Gap 7 (10-20) L 06/01/17 07:09 BUN 11 mg/dL (9-20) 06/01/17 07:09 Creatinine 0.9 mg/dL (0.8-1.5) 06/01/17 07:09 Est GFR ( Amer) > 60 06/01/17 07:09 Est GFR (Non-Af Amer) > 60 06/01/17 07:09 POC Glucose (mg/dL) 121 mg/dL (65-110) H 05/30/17 22:13 Random Glucose 138 mg/dL (75-110) H 06/01/17 07:09 Hemoglobin A1c 6.0 % (4.2-6.5) 05/21/17 17:27 Serum Osmolality 281 mosm/kg (272-300) 05/21/17 11:09 Lactic Acid 1.3 mmol/L (0.7-2.1) 05/21/17 00:43 Calcium 7.2 mg/dl (8.6-10.4) L 06/01/17 07:09 Phosphorus 3.3 mg/dL (2.5-4.5) 05/27/17 07:06 Magnesium 1.5 mg/dL (1.6-2.3) L 06/01/17 07:09 Iron 25 ug/dL (49-181) L 05/22/17 08:18 TIBC 266 ug/dL (250-450) 05/22/17 08:18 % Saturation 9 (20-55) L 05/22/17 08:18 Ferritin 28.5 ng/mL 05/22/17 08:18 Total Bilirubin 2.5 mg/dL (0.2-1.3) H 06/01/17 07:09 AST 44 U/L (17-59) 06/01/17 07:09 ALT 27 U/L (21-72) 06/01/17 07:09 Alkaline Phosphatase 138 U/L (38-126) H 06/01/17 07:09 Ammonia 36 umol/L (9-33) H 06/01/17 07:09 Total Creatine Kinase 411 U/L (55-170) H 05/23/17 19:24 CK-MB (Mass) 2.00 ng/mL (0.0-3.38) 05/23/17 19:24 Troponin I < 0.0120 ng/mL (0.00-0.120) 05/25/17 13:06 Total Protein 6.7 g/dL (6.3-8.3) 06/01/17 07:09 Albumin 2.2 g/dL (3.5-5.0) L 06/01/17 07:09 Globulin 4.5 gm/dL (2.2-3.9) H 06/01/17 07:09 Albumin/Globulin Ratio 0.5 (1.0-2.1) L 06/01/17 07:09 Lipase 71 U/L (23-300) 05/20/17 19:08 Vitamin B12 705 pg/mL (239-931) 05/22/17 08:18 Folate 7.3 ng/mL 05/22/17 08:18 Procalcitonin 0.48 NG/ML (0.19-0.49) 05/27/17 16:54 Free T4 1.31 ng/dL (0.78-2.19) 05/22/17 08:18 TSH 3rd Generation 2.15 mIU/L (0.46-4.68) 05/22/17 08:18 Venous Blood Potassium 3.6 mmol/L (3.6-5.2) 05/20/17 19:19 Urine Color Sarai (YELLOW) 05/20/17 22:09 Urine Clarity Clear (Clear) 05/20/17 22:09 Urine pH 5.0 (5.0-8.0) 05/20/17 22:09 Ur Specific Sodus 1.028 (1.003-1.030) 05/20/17 22:09 Urine Protein 1+ mg/dL (NEGATIVE) H 05/20/17 22:09 Urine Glucose (UA) Normal mg/dL (Normal) 05/20/17 22:09 Urine Ketones Trace mg/dL (NEGATIVE) 05/20/17 22:09 Urine Blood 1+ (NEGATIVE) H 05/20/17 22:09 Urine Nitrate Negative (NEGATIVE) 05/20/17 22:09 Urine Bilirubin 1+ (NEGATIVE) H 05/20/17 22:09 Urine Urobilinogen 4.0 mg/dL (0.2-1.0) 05/20/17 22:09 Ur Leukocyte Esterase 1+ Ezekiel/uL (Negative) H 05/20/17 22:09 Urine WBC (Auto) 9 /hpf (0-5) H 05/20/17 22:09 Urine RBC (Auto) 7 /hpf (0-3) H 05/20/17 22:09 Ur Squamous Epith Cells 1 /hpf (0-5) 05/20/17 22:09 Urine Bacteria Occ (<OCC) H 05/20/17 22:09 Urine Osmolality 722 mosm/kg (300-1000) 05/21/17 13:17 Ur Random Sodium 7 mmol/L 05/21/17 13:17 Gentamicin Peak 2.3 ug/mL (5.0-8.0) L 05/23/17 22:07 Gentamicin Trough 1.4 ug/mL (0.0-0.9) H 05/23/17 15:23 Vancomycin Trough 14.6 ug/mL (5.0-10.0) H 05/31/17 06:47 Random Vancomycin 45.84 ug/mL 05/25/17 06:05 Urine Opiates Screen Negative (NEGATIVE) 05/21/17 17:41 Urine Methadone Screen Negative (NEGATIVE) 05/21/17 17:41 Ur Barbiturates Screen Negative (NEGATIVE) 05/21/17 17:41 Ur Phencyclidine Scrn Negative (NEGATIVE) 05/21/17 17:41 Ur Amphetamines Screen Negative (NEGATIVE) 05/21/17 17:41 U Benzodiazepines Scrn Negative (NEGATIVE) 05/21/17 17:41 U Oth Cocaine Metabols Negative (NEGATIVE) 05/21/17 17:41 U Cannabinoids Screen Negative (NEGATIVE) 05/21/17 17:41 Alcohol, Quantitative < 10 mg/dl (0-10) 05/20/17 19:08 Influenza Typ A,B (EIA) Negative for flu a/b (NEGATIVE) 05/20/17 22:16 Ur L.pneumophila Ag Negative (NEGATIVE) 05/21/17 13:17 Mycoplasma pneumon IgG 1.55 (<=0.90) H 05/21/17 14:41 Mycoplasma pneumon IgM 572 U/mL (<770) 05/21/17 14:41 Grp A Beta Strep Ag Negative (NEGATIVE) 05/21/17 13:17 Ur Strep pneumoniae Ag Not detected 05/21/17 13:17 Blood Type O POSITIVE 05/23/17 12:06 Antibody Screen Negative 05/23/17 12:06 - Hospital Course Hospital Course: Discharge Summary PMD: None Consults: GI (Dr. Barbosa), Surgery (Dr. Motley), ID (Dr. Bloom), Radiology ( Dr. Romero) PRINCIPAL DISCHARGE DIAGNOSES: Abscess of right hand Alcohol abuse Heroin abuse CC: copy from note HISTORY OF PRESENT ILLNESS: 56 yo Male with PMHx of Afib, hepatic cirrhosis, varices, anemia,alcoholism stopped 10 yrs as per patient, chronic leg edema, venous insufficiency and dermatitis changes in right leg presented to the ED with fever, body ache, runny nose, and productive cough x 3 days. Patient is homeless, reports that he was feeling ill for the past 3-4 days. Admitted to fever, chills, productive cough with yellow sputum, chest discomfort upon coughing, diarrhea and right leg pain. Denied abdominal pain, n/ v/c, or urinary symptoms. PMHx: Afib, hepatic cirrhosis, varices, anemia,alcoholism stopped 10 yrs as per patient, chronic leg edema, venous insufficiency & dermatitis changes in right leg PSHx: Incarcerated hernia repair Meds: As per MAR, reviewed and confirmed All: NKDA SHx: denies tobacco or illicit drug use, endorses prior 1 pint vodka daily for four years, quit 10 years - positive ETOH levels FHx: denies stomach cancer, colon cancer, liver cancer SUMMARY OF COURSE: Srinivasa Turner is a 56-year-old male who was admitted to [facility] on 05/21/2017-05/31/2017 for evaluation and treatment of right leg cellulitis and bacteremia. His past medical history is notable for Afib, hepatic cirrhosis, varices, anemia, alcoholism stopped 10 years as per the patient, chronic leg edema, venous insufficiency and dermatitis changes in right leg. While at the hospital, he was given antibiotics, had blood cultures taken and had imaging done. GI, surgery, infectious disease and radiology were consulted. Imaging study results are stated below. GI consult, Dr. Barbosa, gave diuretics and evaluated for cirrhosis. Surgery consult, Dr. Motley, says that Mr. Turner is an extremely poor surgical candidate and that the degree of ascites puts him at a high risk for recurrence, mesh infection, SBP, and ascites leak. Dr. Motley recommended a paracentesis and says no surgical intervention is planned at this time. Radiology consult, Dr. Romero, did a paracentesis to drain fluid in the abdomen. He is advised to follow up with the Liver Specialist at [facility] in [place], [place] ([phone]). He should follow up with the [facility] ([phone]) which is located in the basement of [facility] for general medical maintenance. He is advised that he will need to maintain sobriety to be eligible for any intervention for his liver. He should return to the emergency room for any new or worsening symptoms. Imaging: Chest XR 05/20: Stable the cardiac silhouette, upper limits normal size. No pulmonary vascular derangement appreciable. No infiltrate, pleural effusion or pneumothorax identified. Duplex Scan Lower Extremity Artery 05/21: Right 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 No evidence of deep vein thrombosis of the right lower extremity. Normal valve function noted of the right side. Left No evidence of deep or superficial vein thrombosis of the left lower extremity. Normal valve function noted of the left side. CXR 05/22: No active disease. Abd US 05/23: Hepatic cirrhosis. Ascites. Thickened gallbladder wall, nonspecific possibly related to hepatic cirrhosis. Bilateral small renal cysts. Nonobstructing 8 mm left renal calculus. Chest CT 05/23: No infiltrate/effusion. Cardiomegaly. Mildly dilated main pulmonary artery. Ascites. Hepatic cirrhosis. Nonobstructing left renal calculus. Possible pancreatitis. Hyperdense left upper pole exophytic renal mass , likely hyperdense cyst. Abdomen/Pelvis CT with contrast 05/23: Cirrhotic liver are without focal hepatic mass. Ascites and anasarca. Nonobstructing left renal calculus. Umbilical hernia containing fluid and omentum without bowel. Interventional procedure 05/26: Ultrasound-guided paracentesis. DISCHARGE MEDICATIONS: 1. Aspirin 81 mg PO daily 2. Cardizem 120 mg PO daily 3. Ferrous sulfate 325 mg PO daily 4. Lasix 40 mg PO daily 5. Aldactone 50 mg PO daily Discharge Exam - Head Exam Head Exam: ATRAUMATIC, NORMAL INSPECTION, NORMOCEPHALIC - Eye Exam Eye Exam: EOMI, Normal appearance, PERRL. absent: Periorbital tenderness Pupil Exam: NORMAL ACCOMODATION, PERRL. absent: Irregular, Unequal - ENT Exam ENT Exam: Mucous Membranes Moist, Normal Oropharynx. absent: TM's Normal Bilaterally - Respiratory Exam Respiratory Exam: Clear to PA & Lateral, NORMAL BREATHING PATTERN, UNREMARKABLE. absent: Decreased Breath Sounds, Rales, Rhonchi - Cardiovascular Exam Cardiovascular Exam: REGULAR RHYTHM, +S1, +S2 - GI/Abdominal Exam GI & Abdominal Exam: Normal Bowel Sounds, Unremarkable. absent: Organomegaly, Soft, Tenderness Additional comments: ascites. - Neurological Exam Neurological exam: Alert, CN II-XII Intact, Oriented x3 - Psychiatric Exam Psychiatric exam: Normal Affect, Normal Mood - Skin Skin Exam: Dry, Intact, Normal Color Discharge Plan - Discharge Medications Prescriptions: Aspirin [Adult Low Dose Aspirin EC] 81 mg PO DAILY #30 tablet. diltiaZEM [Cardizem] 120 mg PO DAILY #30 tab Ferrous Sulfate 325 mg PO DAILY #30 tablet Furosemide [Lasix] 40 mg PO DAILY #30 tablet Spironolactone [Aldactone] 50 mg PO DAILY #30 tab - Follow Up Plan Condition: GUARDED Disposition: HOME/ ROUTINE Instructions: Iron Supplements (By mouth), Spironolactone (By mouth), Diltiazem (By mouth), Furosemide (By mouth), Aspirin (By mouth), Urinary Tract Infection in Men (DC), Heart Healthy Diet (DC), Hyponatremia (DC), Sepsis (GEN) , Abdominal Paracentesis (DC), Ascites (DC) Additional Instructions: Patient medically stable for discharge. 1) Patient advised patient to follow up with the Liver Specialist at [facility] in [place], [place] ([phone]) 2) Advised patient to follow up in the [facility] in the [facility] to general medical maintenance Patient is advised he will need to maintain sobriety to be eligible for any intervention for his liver. 3) Advised patient to return to hospital for any new or worsening symptoms. Discharge Medications: 1. Aspirin 81mg PO Daily, #30 2. Cardizem 120mg PO Daily, #30 3. Ferrous Sulfate 325mg PO Daily, #30 4. Aldactone 50mg PO Daily, #30 5. Lasix 40mg PO Daily, #30 Referrals: [facility] [Outside]
== END 2017-06-01 13:19 | disposition home or self-care (01) | DRG 872 ==
LOC: C.ER 17:32 → C.9E 23:31 → C.6T 05-21 00:26
PROVIDERS: ADMIT Family Medicine; ATTEND Family Medicine
PROC: 0W9G3ZZ Drainage of Peritoneal Cavity, Percutaneous Approach (ICD-10-PCS; principal; 2017-05-26)
DX: A40.9 Streptococcal sepsis, unspecified (principal); E87.2 Acidosis; D61.818 Other pancytopenia; K76.6 Portal hypertension; E22.2 Syndrome of inappropriate secretion of antidiuretic hormone; I48.91 Unspecified atrial fibrillation; E83.42 Hypomagnesemia; E86.0 Dehydration; L03.115 Cellulitis of right lower limb; N39.0 Urinary tract infection, site not specified; L02.511 Cutaneous abscess of right hand; K70.31 Alcoholic cirrhosis of liver with ascites; Z59.0 Homelessness; I89.0 Lymphedema, not elsewhere classified; Z91.14 Patient's other noncompliance with medication regimen; K42.9 Umbilical hernia without obstruction or gangrene; K72.90 Hepatic failure, unspecified without coma; E87.6 Hypokalemia; Z66 Do not resuscitate; Z51.5 Encounter for palliative care; D63.8 Anemia in other chronic diseases classified elsewhere; F11.10 Opioid abuse, uncomplicated